=== PATIENT | female | born 1930 | race African-American/Black ===

== ENCOUNTER 2021-01-06 03:18 | Inpatient (IN) | payer OTHER ==
[~2021-01-06] VITALS: Ht 157.5 cm; Wt 49.4 kg
[2021-01-06] VITALS (7 sets, daily range): BP systolic 118–145; BP diastolic 63–98
--- NOTE | 2021-01-06 03:40 | NUR ---
ED Nurse Note: Pt brought in by son. Son reports pt has SOB and weakness. Pt lives home alone and son reports she is senile. Son is poor historian for this pt. Pt c/o shortness of breath.
[2021-01-06] MEDS ORDERED: Aspirin Baby 81mg ORAL ONE (03:45)
[2021-01-06] MEDS ORDERED: Omnipaque 350 100ml vial INJ PRN (03:45)
--- NOTE | 2021-01-06 03:48 | Emergency Room Report ---
History of Present Illness General Chief Complaint: Dyspnea/Respdistress Source: Patient, Family Member Present Illness HPI Patient is an 89-year-old female unknown past medical history who was brought in by her son for shortness of breath. Per son patient is "senile" and a poor his elvis. He states that she has been complaining of shortness of breath for 1 week and it got worse which prompted them to bring her to the emergency department. Patient is hard of hearing but states she has problems breathing. She denies any chest pain. She denies any fever or chills. She denies any cough. Patient son states that she was a former smoker. He does not know what medication she is on or what medical problems she has. Patient denies any abdominal pain nausea or vomiting. Allergies: Coded Allergies: No Known Allergies (Unverified , 01/06/21) COVID-19 Screening Contact w/high risk pt: No Experienced COVID-19 symptoms?: Yes COVID-19 Testing performed FRONT DESK REPRESENTATIVE: No Patient History Now: No Reviewed Nursing Documentation: PMH: Agreed; PSxH: Agreed Nursing Documentation-PMH Hx Hypertension: Yes Review of Systems All Other Systems: negative except mentioned in HPI Physical Exam Vital Signs Date Time Temp Pulse Resp B/P (MAP) Pulse Ox O2 Delivery O2 Flow Rate FiO2 01/06/21 03:27 99.0 132 30 173/102 (125) 92 Room Air Sp02 EP Interpretation: reviewed, normal General Appearance: alert, non-toxic, moderate distress Head: normocephalic, atraumatic Eyes: bilateral eye normal inspection, bilateral eye PERRL ENT: other - Hard of hearing Neck: full range of motion, no meningismus Respiratory: respiratory distress, accessory muscle use, rales Cardiovascular #1: tachycardia Gastrointestinal: non tender, soft, no guarding, no rebound Rectal: deferred Musculoskeletal: other - Bilateral 1+ edema no calf tenderness to palpation no erythema 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 Due to a high probability of clinically significant, life threatening deterioration, the patient required my highest level of preparedness to intervene emergently and I personally spent this critical care time directly and personally managing the patient. This critical care time included obtaining a history; examining the patient; pulse oximetry; ordering and review of studies; arranging urgent treatment with development of a management plan; evaluation of patient's response to treatment; frequent reassessment; and, discussions with other providers.This critical care time was performed to assess and manage the high probability of imminent, life- threatening deterioration that could result in multi-organ failure. It was exclusive of separately billable procedures and treating other patients and teaching time. Please see MDM section and the rest of the note for further information on patient assessment and treatment. Medical Decision Making Diagnostic Impression: Primary Impression: CHF (congestive heart failure) Additional Impressions: NSTEMI (non-ST elevated myocardial infarction) COPD exacerbation ER Course Patient presents with worsening shortness of breath over the past week. Patient has mixed picture of COPD and CHF exacerbation. Patient has increased pulmonary vasculature with possible right lower lobe infiltrate. Patient placed on BiPAP. Patient given 40 mg of IV Lasix. Patient also given inline Xopenex. Patient's heart rate is improving and respiratory rate is improved. Patient has elevated troponin with ST depressions. Patient has no active chest pain. Patient will be started on heparin. Patient's D-dimer is elevated. Concern for PE. Patient has already been started on heparin and CT angio has been ordered to rule out PE. Patient will be admitted for further treatment and evaluation. Laboratory Tests Test 01/06/21 03:33 01/06/21 03:39 01/06/21 04:24 White Blood Count 4.5 K/UL (4.8-10.8) L Red Blood Count 3.84 M/UL (4.20-5.40) L Hemoglobin 11.7 G/DL (12.0-16.0) L Hematocrit 36.8 % (37.0-47.0) L Mean Corpuscular Volume 96 FL (80-99) Mean Corpuscular Hemoglobin 30.4 PG (27.0-31.0) Mean Corpuscular Hemoglobin Concent 31.6 G/DL (32.0-36.0) L Red Cell Distribution Width 13.1 % (11.6-14.8) Platelet Count 185 K/UL (150-450) Mean Platelet Volume 6.6 FL (6.5-10.1) Neutrophils (%) (Auto) 39.6 % (45.0-75.0) L Lymphocytes (%) (Auto) 44.8 % (20.0-45.0) Monocytes (%) (Auto) 9.5 % (1.0-10.0) Eosinophils (%) (Auto) 4.7 % (0.0-3.0) H Basophils (%) (Auto) 1.4 % (0.0-2.0) Prothrombin Time 10.6 SEC (9.30-11.50) Prothrombin Time INR 1.0 (0.9-1.1) Activated Partial Thromboplast Time 21 SEC (23-33) L D-Dimer 6.06 mg/L FEU (0.00-0.49) H Sodium Level 135 MMOL/L (136-145) L Potassium Level 4.3 MMOL/L (3.5-5.1) Chloride Level 105 MMOL/L (98-107) Carbon Dioxide Level 27 MMOL/L (21-32) Anion Gap 3 mmol/L (5-15) L Blood Urea Nitrogen 25 mg/dL (7-18) H Creatinine 1.1 MG/DL (0.55-1.30) Estimated Glomerular Filtration Rate 56.6 mL/min (>60) Glucose Level 186 MG/DL (74-106) H Lactic Acid Level 2.10 mmol/L (0.4-2.0) H Calcium Level 9.1 MG/DL (8.5-10.1) Magnesium Level 2.3 MG/DL (1.8-2.4) Ferritin 370 NG/ML (8-388) Total Bilirubin 0.4 MG/DL (0.2-1.0) Aspartate Amino Transferase (AST) 128 U/L (15-37) H Alanine Aminotransferase (ALT) 122 U/L (12-78) H Alkaline Phosphatase 103 U/L (46-116) Lactate Dehydrogenase 334 U/L (81-234) H Total Creatine Kinase 253 U/L (26-308) Troponin I 0.937 ng/mL (0.000-0.056) C-Reactive Protein, Quantitative < 0.4 mg/dL (0.00-0.90) Pro-B-Type Natriuretic Peptide 5442 pg/mL (0-125) H Total Protein 7.2 G/DL (6.4-8.2) Albumin 3.7 G/DL (3.4-5.0) Globulin 3.5 g/dL Albumin/Globulin Ratio 1.1 (1.0-2.7) Arterial Blood pH 7.305 (7.350-7.450) Arterial Blood Partial Pressure CO2 45.7 mmHg (35.0-45.0) H Arterial Blood Partial Pressure O2 63.3 mmHg (75.0-100.0) L Arterial Blood HCO3 22.2 mmol/L (22.0-26.0) Arterial Blood Oxygen Saturation 90.7 % (95-100) L Arterial Blood Base Excess -4.1 (-2-2) L Mo Test Positive Urine Color Pale yellow Urine Appearance Clear Urine pH 6 (4.5-8.0) Urine Specific Rupert 1.010 (1.005-1.035) Urine Protein 2+ (NEGATIVE) H Urine Glucose (UA) Negative (NEGATIVE) Urine Ketones Negative (NEGATIVE) Urine Blood 1+ (NEGATIVE) H Urine Nitrite Negative (NEGATIVE) Urine Bilirubin Negative (NEGATIVE) Urine Urobilinogen Normal MG/DL (0.0-1.0) Urine Leukocyte Esterase Negative (NEGATIVE) Urine RBC 0-2 /HPF (0 - 2) Urine WBC 0 /HPF (0 - 2) Urine Squamous Epithelial Cells Few /LPF (NONE/OCC) Urine Bacteria None /HPF (NONE) EKG Diagnostic Results Troponin ordered: Yes When was troponin ordered?: Jan 06, 2021 EKG Time: 03:37 EP Interpretation: Bren Almendarez MD Rate: tachycardiac - 121 bpm Rhythm: other - Sinus tachycardia with left axis deviation, left bundle branch block ST Segments: other - ST depressions Rhythm Strip Diag. Results Rhythm Strip Time: 03:47 EP Interpretation: yes - Bren Almendarez MD Rate: 123 bpm Rhythm: no PVC's, no ectopy, other - Sinus tachycardia Chest X-Ray Diagnostic Results Chest X-Ray Diagnostic Results : Chest X-Ray Ordered: Yes # of Views/Limited/Complete: 1 View Indication: Shortness of Breath Interpretation: no pneumothorax, other - Pulmonary vascular congestion, bilateral pleural effusions, cardiomegaly Impression: Other - CHF exacerbation Electronically Signed by: Bren Almendarez MD Last Vital Signs Date Time Temp Pulse Resp B/P (MAP) Pulse Ox O2 Delivery O2 Flow Rate FiO2 2/9/21 03:27 99.0 132 30 173/102 (125) 92 Room Air Disposition: ADMITTED INPATIENT - SDU Condition: Critical Physician Consult: Dr. Bowers at 5am Referrals: NON PHYSICIAN (PCP) Additional Instructions: Please note that this report is being documented using [employer] technology. This can lead to erroneous entry secondary to incorrect interpretation by the dictating instrument. Bren Almendarez M.D. Jan 06, 2021 03:48
[2021-01-06 03:55] LABS: BASOPHILS % (AUTO) 1.4 % (0.0-2.0); EOSINOPHILS % (AUTO) 4.7 % (0.0-3.0); HEMATOCRIT 36.8 % (37.0-47.0); HEMOGLOBIN 11.7 G/DL (12.0-16.0); LYMPHOCYTES % (AUTO) 44.8 % (20.0-45.0); MEAN CORPUSCULAR VOLUME 96 FL (80-99); MONOCYTES % (AUTO) 9.5 % (1.0-10.0); NEUTROPHILS % (AUTO) 39.6 % (45.0-75.0); PLATELET COUNT 185 K/UL (150-450); RED BLOOD COUNT 3.84 M/UL (4.20-5.40); RED CELL DISTRIBUTION WIDTH 13.1 % (11.6-14.8); WHITE BLOOD COUNT 4.5 K/UL (4.8-10.8)
[2021-01-06] MEDS ORDERED: NS 275ml ONE (04:01)
[2021-01-06] MEDS ORDERED: Tubing IV Secondary IV ONE (04:01)
[2021-01-06 04:08] LABS: ANION GAP 3 mmol/L (5-15); BLOOD UREA NITROGEN 25 mg/dL (7-18); CALCIUM 9.1 MG/DL (8.5-10.1); CARBON DIOXIDE 27 MMOL/L (21-32); CHLORIDE 105 MMOL/L (98-107); CREATININE 1.1 MG/DL (0.55-1.30); POTASSIUM 4.3 MMOL/L (3.5-5.1); SODIUM 135 MMOL/L (136-145)
[2021-01-06 04:23] LABS: ALANINE AMINOTRANSFERASE 122 U/L (12-78); ALBUMIN 3.7 G/DL (3.4-5.0); ALBUMIN/GLOBULIN RATIO 1.1 (1.0-2.7); ALKALINE PHOSPHATASE 103 U/L (46-116); ASPARTATE AMINO TRANSFERASE 128 U/L (15-37); CREATINE KINASE 253 U/L (26-308); FERRITIN 370 NG/ML (8-388); LACTATE DEHYDROGENASE 334 U/L (81-234)
[2021-01-06] MEDS ORDERED: Heparin 25,000u/D5W 500ml 500 ML IV SCH ×2 (04:30→12:00)
[2021-01-06] MEDS ORDERED: Heparin 5000 units/ml inj IV SCH (04:30)
[2021-01-06 04:31] LABS: APPEARANCE,URINE CLEAR; BILIRUBIN, URINE NEGATIVE (NEGATIVE); COLOR,URINE PALE YELLOW; GLUCOSE, URINE (UA) NEGATIVE (NEGATIVE); KETONES,URINE NEGATIVE (NEGATIVE); LEUKOCYTE ESTERASE ,URINE NEGATIVE (NEGATIVE); NITRITE,URINE NEGATIVE (NEGATIVE); PH,URINE 6 (4.5-8.0); PROTEIN,URINE 2+ (NEGATIVE); UROBILINOGEN,URINE NORMAL MG/DL (0.0-1.0)
[2021-01-06 04:38] LABS: BILIRUBIN,TOTAL 0.4 MG/DL (0.2-1.0)
--- NOTE | 2021-01-06 04:38 | Diagnostic Imaging Report ---
EXAM: XR Chest, 1 View CLINICAL HISTORY: SOB TECHNIQUE: Frontal view of the chest. COMPARISON: No relevant prior studies available. FINDINGS/IMPRESSION: Emphysema with increased perihilar markings, concerning for moderate vascular congestion. Small effusions. Follow-up chest radiograph recommended. Cardiomegaly. Calcified aorta. No pneumothorax ever, the patient's chin obscures the lung apices.
[2021-01-06] MEDS ORDERED: LORazepam Inj 2mg/ml 1ml IV ONE (04:45)
[2021-01-06] MEDS ORDERED: Levalbuterol Inh UD 1.25mg/0.5ml HHN ONE (04:45)
[2021-01-06] MEDS ORDERED: Azithromycin 500 MG in NS 275 ML IV ONE (04:45)
[2021-01-06] MEDS ORDERED: Omnipaque-300 100ml vial INJ ONE (04:45)
[2021-01-06] MEDS ORDERED: Cefepime HCl 2 GM in D5W 55 ML IVPB ONE (04:45)
[2021-01-06] MEDS ORDERED: dexAMETHasone 10mg/ml Inj IV ONE (05:00)
--- NOTE | 2021-01-06 05:28 | NUR ---
ED Nurse Note: Pt was very restless and kept repeating that she couldn't breathe right. Pt got ativan and is now resting. A 2nd line has been place and dickson anchored. Pt was cleaned up and monitor reapplied. Pt is currently on bipap with stable vitals. Bed in lowest position, rails up x2, call light in reach.
--- NOTE | 2021-01-06 05:36 | NUR ---
ED Nurse Note: Attempted to call report. Advised to call back in 5 minutes. Pt's son left number. Sawyer: [phone]. Addendum: 01/06/21 at 0615 by KARLY Sawyer's phone number is [phone]. Previous number is wrong.
--- NOTE | 2021-01-06 06:05 | NUR ---
TRANSFER TO FLOOR: Patient transferred to [facility] as ordered, per Dr. Almendarez. Report given to MISSY Keith. Belongings sent with pt. Family informed of transfer.
--- NOTE | 2021-01-06 06:19 | NUR ---
CASE MANAGEMENT:REVIEW 89YR OLD FEMALE WALKED INTO ER WITH SON CC: SOB SI: NSTEMI. COPD. CHF 98.9 132 30 173/102 92% ON RA BUN+25 LACTIC ACID+2.10 AST/ALT+128/122 TROPONIN(+) 0.937 BNP+5442 IS: PLACED ON 2L/NC 500CC NS BOLUS IV LASIX X2 ASA PO HEPARIN GTT IV AZITHROMYCIN IV CEFEPIME IV DECADRON CTA CHEST CXR BLOOD CX NOVEL COVID : TO TELEMETRY DCP: FROM HOME
--- NOTE | 2021-01-06 06:19 | NUR ---
ED Nurse Note: Attempted to call Edward, left a message. Waiting for RT to take pt to floor.
--- NOTE | 2021-01-06 07:02 | NUR ---
ED Nurse Note: RT busy with emergency on the floor, unavailable to help with pt transport. Pt is resting and appears to be in no distress. Bed in lowest position, rails up x2, no new needs identified.
--- NOTE | 2021-01-06 07:05 | NUR ---
NURSE NOTES: Pt is still at the Er, report forwarded and given to Alejo.
--- NOTE | 2021-01-06 07:19 | NUR ---
NURSE NOTES: Report received from MISSY Keith. Patient came to the floor. On BiPap 10/02, 60%, tolerating well. Patient is on bed, no signs of grimacing or distress noted. Will follow up with primary provider and will ask for consults. Patient is on dickson catheter, patent, intact, draining light yellow urine. HOB elevated, bed is on lowest position, side rails up, locked. Will continue to monitor. Will continue plan of care.
[2021-01-06] MEDS ORDERED: cefTRIAXone 1 GM in D5W 55 ML IVPB SCH (08:30)
[2021-01-06] MEDS ORDERED: dexAMETHasone 10mg/ml Inj IV SCH (09:00)
[2021-01-06] MEDS ORDERED: Azithromycin 500 MG in D5W 275 ML IV SCH (09:00)
[2021-01-06] MEDS: cefTRIAXone 1 GM in D5W 55 ML IVPB SCH (10:16)
--- NOTE | 2021-01-06 11:45 | Consultation ---
Consult Note Consult Note DATE OF CONSULTATION: 01/06/2021 CONSULTING PHYSICIAN: Kin Miner MD. ATTENDING PHYSICIAN: Dr. Bowers REASON FOR CONSULTATION: Shortness of breath HISTORY OF PRESENT ILLNESS: This is an 89-year-old female with unknown past medical history who was brought in by son for progressively worsening shortness of breath x1 week. She denies any chest pain, fever, chills, or cough. She is a poor historian and any further history is unable to be obtained. Her chest x-ray revealed increased pulmonary vascular with possible right lower lobe infiltrate, small bilateral pleural effusions, and cardiomegaly. Patient was placed on BiPAP in the ER and was given level butyryl and Lasix. Patient had elevated troponin with ST depressions. Patient was started on heparin due to concern for pulmonary embolus. Patient was seen in SDU. PAST MEDICAL HISTORY: Unknown MEDICATIONS: Full list of home medication not available at this time ALLERGIES: No known allergies FAMILY HISTORY: Unknown PERSONAL/SOCIAL HISTORY: Ex-smoker REVIEW OF SYSTEMS: Negative except mentioned in HPI PHYSICAL EXAMINATION: VITAL SIGNS: Blood pressure 145/93, heart rate 60, respiratory rate 23, weight 49 kg, height 157 cm General: Moderate respiratory distress on BiPAP HEENT: Head exam reveals that the head is normocephalic, atraumatic without deformity or unusual swelling. Pupils are PERRLA. CHEST AND LUNGS: Accessory muscle use, Rales noted CARDIOVASCULAR: Reveals normal S1, S2 without murmurs, rubs, or clicks. ABDOMEN: Soft with no tenderness or organomegaly. RECTAL: Deferred. MUSCULOSKELETAL: Bilateral lower extremity 1+ edema, no calf tenderness to palpation, or erythema NEUROLOGICAL: Alert and oriented x3 , nonfocal LABORATORY DATA: Laboratory testing shows WBC 4.5, hemoglobin 11.7, hematocrit 36.8. Chemistries show sodium 135, BUN 25, creatinine 1.1, glucose 186, lactic acid 2.1, AST 128, ALT 122, LDH 334, troponin 0.937, BNP 5442 Assessment/Plan 1. Hypoxemic respiratory distress -Continue current BiPAP setting - Agree with dexamethasone - Recheck ABG 2. COVID-19 PUI -COVID-19 swab sent - isolation precaution until COVID-19 test result available 3. Pneumonia -On broad-spectrum antibiotics per primary MD 4. Elevated BNP - s/p Lasix in the ER 5. Elevated D-dimer with tachycardia - On heparin drip for DVT prophylaxis -We will order venous duplex of legs The care for this patient was discussed with my supervising physician. Time spent for this case was approximately 31 minutes. Moo Emmanuel Jan 06, 2021 11:45
--- NOTE | 2021-01-06 12:43 | NUR ---
NURSE NOTES: PTT resulted back and it is within range. Pharmacy called and said cancel 1800 PTT and just order PTT tomorrow (01/07) at 0400.
--- NOTE | 2021-01-06 13:45 | NUR ---
NURSE NOTES: patient put on restraints because she is pulling bipap off and trying to get out of bed.
--- NOTE | 2021-01-06 14:29 | Consultation ---
DATE OF CONSULTATION: 01/06/2021 INFECTIOUS DISEASES CONSULTATION CONSULTING PHYSICIAN: Emmie Dickson MD REFERRING PHYSICIAN: Vinod Bowers MD REASON FOR CONSULTATION: To rule out COVID-19 pneumonia. HISTORY OF PRESENT ILLNESS: This is a 89-year-old lady with unknown past medical history who comes in with worsening shortness of breath. She has been placed on a BiPAP. An Infectious Diseases consultation has been obtained for antibiotics. PAST MEDICAL HISTORY: Unknown. SOCIAL HISTORY: Unknown. FAMILY HISTORY: Unknown. REVIEW OF SYSTEMS: Unable to obtain currently. MEDICATIONS: As an inpatient, she is on ceftriaxone, dexamethasone, azithromycin. ALLERGIES: No known drug allergies. PHYSICAL EXAMINATION: VITAL SIGNS: Temperature 97.3, T-max of 99, pulse of 93, respiratory rate 26, blood pressure 141/73, O2 saturation of 100% on 60% FiO2 on a BiPAP. Examination deferred due to COVID-19. LABORATORY AND DIAGNOSTIC DATA: White count 4.5, hemoglobin 11.7, hematocrit 36.8, MCV 96, platelet count of 185. Sodium 135, potassium 4.3, chloride 105, bicarb 27, BUN 25, creatinine 1.1, glucose 186, calcium 9.1, ferritin 370. Total bilirubin 0.4, AST 128, ALT 122, alkaline phosphatase 103. LDH 334. CK 253. Troponin 0.9. C-reactive protein less than 0.4. Beta natriuretic peptide 5442. Total protein 7.2, albumin 3.7. UA showing zero white cells. Nasal swab was negative for influenza A and B. Chest x-ray is showing emphysema with increased perihilar markings concerning for moderate vascular congestion, small effusions noted. ASSESSMENT: This is a 89-year-old lady with unknown past medical history who comes in with shortness of breath and is found to have. 1. Pneumonia, COVID-19 test is pending. 2. Respiratory failure. PLAN: 1. Continue ceftriaxone and azithromycin for now. 2. Continue dexamethasone day #1. 3. We will give one dose of ivermectin. 4. We will order COVID-19 results. 5. We will follow up patient clinically. 6. Continue isolation. I would like to thank, Dr. Bowers, for this consultation. Emmie Dickson M.D. DR: Walter JOB#: [id number] CC: Stephane Bowers M.D.; Fax#: [phone]
--- NOTE | 2021-01-06 14:44 | NUR ---
NURSE NOTES: Patient went on Vtach (166 HR). Did a 10 lead EKG and it is ST with [address] Hankins. Ordered stat Mg level per Dr. Hankins. Will continue to follow up.
--- NOTE | 2021-01-06 15:06 | NUR ---
RESPIRATORY NOTE: Removed BIPAP and placed pt on 2L NC. Pt tolerating well. Spo2 98-99%. RN bedside. Will continue to closely monitor and follow plan of care.
--- NOTE | 2021-01-06 15:12 | NUR ---
NURSE NOTES: Patient is off the BiPap now. Currently on NC at 2L saturation at 100%. Will let primary doctor know.
--- NOTE | 2021-01-06 16:11 | Diagnostic Imaging Report ---
. Indication: Reason For Exam: DVT Technique: Grayscale and duplex images of the bilateral lower extremity veins Comparison: None Findings: Bilaterally, grayscale and duplex images demonstrate no evidence of intraluminal thrombus. Normal phasic Doppler waveforms, demonstrating normal augmentation response and no evidence of valvular insufficiency. Greater saphenous vein(s) and tibial veins are patent. Normal compressibility. Impression: Negative for evidence of lower extremity deep venous thrombosis bilaterally
--- NOTE | 2021-01-06 16:15 | Cardiology Report ---
APPROVED REPORT EKG Measurement Heart [id number] <Conclusion> Sinus tachycardia Possible Left atrial enlargement Left axis deviation Right bundle branch block Abnormal ECG
--- NOTE | 2021-01-06 18:14 | History and Physical Report ---
DATE OF ADMISSION: 01/06/2021 HISTORY OF PRESENT ILLNESS: This is an elderly 89-year-old female who came to the emergency room for short of breath, hypoxia. The patient is on BiPAP and is still critically sick. Opens her eyes. The patient is in bed. PAST MEDICAL HISTORY: Significant for COPD, CHF, hypertension. MEDICATIONS: She does not remember. ALLERGIES: NKA. FAMILY HISTORY: Not contributory. REVIEW OF SYSTEMS: Cannot be obtained. PHYSICAL EXAMINATION: GENERAL: This is an elderly female, currently in bed, nonverbal, on BiPAP. VITAL SIGNS: Blood pressure 145/93, pulse 60, respirations 23, pulse ox is 99%, temperature 97.9. HEENT: AT/NC. EOMI. RICARDO. Eyes are open. NECK: Supple. CHEST: Bilaterally scattered wheezing and crackles. CARDIOVASCULAR: Regular rhythm. ABDOMEN: Soft. Positive bowel sounds, nontender. EXTREMITIES: CCE. NEUROLOGIC: The patient is nonverbal and on BiPAP, generalized weakness. LABORATORY DATA: White count is 4.5, hemoglobin 12, hematocrit 36, platelets are 185. Chemistry panel, sodium 145, potassium 4.3, BUN 25, creatinine 1.1, glucose 186. Lactic acid is 2.10. Troponin 0.937. BNP was 5542 and CK of 253. LDH 334. Her imaging x-ray, no pneumothorax. ASSESSMENT AND PLAN: 1. Acute hypoxia. 2. COPD exacerbation. 3. Rule out COVID. 4. CHF. We will admit her. The patient is on ORI. Continue BiPAP. The patient is on continued Decadron, Zithromax, ceftriaxone. Continue heparin drip. Cardiology on consult, Dr. Hankins. We will keep her NPO meanwhile because of the BiPAP. I left a message to Dr. Hankins for cardiology consult. Stephane Bowers M.D. DR: JANAY JOB#: [id number] CC:
--- NOTE | 2021-01-06 19:25 | NUR ---
NURSE NOTES: pt report received from Natalia RN. pt is alert and oriented times 2, able to follow simple commands. no abnormalities noted to neuro assessment. pt is on quality assurance monitor chassis showing NSR, no change in cardiac rhythm, no abnormalities noted. it is on 2L NC, sating 97% O2, no acute distress to resp assessment. pt bed is low, locked, armed, bed rails up times 3, call light within reach. will follow plan of care.
--- NOTE | 2021-01-06 20:00 | NUR ---
NURSE HAND-OFF REPORT: Important Events on Shift: stable Patient Status: Diet: Pending Orders: Pending Results/Labs: Pending MD notification: Latest Vital Signs: Temperature 97.9 , Pulse 98 , B/P 141 /98 , Respiratory Rate 24 , O2 SAT 96 , Bi-pap, O2 Flow Rate 2.0 . Vital Sign Comment: EKG Rhythm: SR with BBB Rhythm change?: N MD Notified?: -Dr. Cr GUZMAN Response: Latest Joiner Fall Score: 45 Fall Risk: High Risk Safety Measures: Call light Within Reach, Bed Alarm Zone 2, Side Rails Side Rails x2, Bed position Low and Locked. Fall Precautions: Yellow Socks Yellow Gown Door Sign Patient Fall Education Report given to MISSY Tucker.
[2021-01-07] VITALS: BP 144/81
[2021-01-07 04:00] VITALS: BP 142/89
[2021-01-07] MEDS ORDERED: Heparin 5000 units/ml inj IV SCH (04:45)
[2021-01-07] MEDS ORDERED: Heparin 25,000u/D5W 500ml 500 ML IV SCH (04:45)
--- NOTE | 2021-01-07 07:20 | NUR ---
NURSE NOTES: Report received from MISSY Tucker. Patient is on bed, confused and has pulled her L IV site. On 2 L nasal cannula, saturating high 90s. On a regular mechanical soft diet. has a dickson catheter F 16, inserted on 01/06, patent, intact, and draining light dalila urine. Has a R FA 18 g IV site, patent, intact, and running Heparin at 16 U/kg/hr. HOB elevated, bed on lowest position, side rails up, locked, call light within reach. Will continue to monitor. Will continue plan of care.
--- NOTE | 2021-01-07 07:40 | NUR ---
NURSE HAND-OFF REPORT: Important Events on Shift:[NA] Patient Status: [unchanged] Diet: [as per doctor order] Pending Orders: [na] Pending Results/Labs:[na] Pending MD notification:[na] Latest Vital Signs: Temperature 98.5 , Pulse 96 , B/P 142 /89 , Respiratory Rate 22 , O2 SAT 99 , Bi-pap, O2 Flow Rate 2.0 . Vital Sign Comment: [stable] EKG Rhythm: SR with BBB, PVC Rhythm change?: N MD Notified?: -Dr. Cr GUZMAN Response: Latest Joiner Fall Score: 45 Fall Risk: High Risk Safety Measures: Call light Within Reach, Bed Alarm Zone 3, Side Rails Side Rails x3, Bed position Low and Locked. Fall Precautions: Yellow Socks Yellow Gown Door Sign Patient Fall Education Report given to [Jc LOUIS].
[2021-01-07] MEDS ORDERED: Azithromycin 500 MG in NS 275 ML IV SCH (09:00)
--- NOTE | 2021-01-07 09:01 | NUR ---
CASE MANAGEMENT:REVIEW 01/07/21 SI: NSTEMI. COPD. CHF. PUI 98.5 93 22 142/89 99% ON BIPAP APTT+36 IS: HEPARIN GTT IV DECADRON QD IV AZITHROMYCIN QD IV ROCEPHIN Q24 IVF@75/HR : STEP DOWN UNIT DCP: FROM HOME
[2021-01-07] MEDS: LORazepam Inj 2mg/ml 1ml IV PRN (09:54)
--- NOTE | 2021-01-07 09:54 | NUR ---
NURSE NOTES: Ativan 0.5 mg IV administered. Patient is agitated. will continue to be monitored.
[2021-01-07] MEDS: cefTRIAXone 1 GM in D5W 55 ML IVPB SCH (10:11)
--- NOTE | 2021-01-07 10:12 | NUR ---
NURSE NOTES: patient is supposed to have CT today with contrast, but patient is verbally aggressive and combative. will be needing consent for the procedure. procedure will most likely be done tomorrow. will endorse to upcoming nurse.
--- NOTE | 2021-01-07 10:46 | Infectious Diseases Prog Note ---
Assessment/Plan Assessment/Plan antibiotics : ceftraixone, azithromycin A 1. pneumonia improving 2. increased LFT 3. anemia P 1. continue ceftriaxone 2. d/c azithromycin 3. s/p 1 dose ivermectin 4. continue dexamethasone day 2 5. continue isolation Subjective ROS Limited/Unobtainable: Yes Allergies: Coded Allergies: No Known Allergies (Unverified , 01/06/21) Objective Last 24 Hour Vital Signs Date Time Temp Pulse Resp B/P (MAP) Pulse Ox O2 Delivery O2 Flow Rate FiO2 01/07/21 08:00 Bi-pap 01/07/21 08:00 2.0 01/07/21 07:32 122 01/07/21 07:10 98 Nasal Cannula 2.0 28 01/07/21 04:00 Bi-pap 01/07/21 04:00 96 01/07/21 04:00 96 01/07/21 04:00 98.5 93 22 142/89 (106) 99 01/07/21 04:00 Bi-pap 01/07/21 04:00 2.0 01/07/21 00:00 2.0 01/07/21 00:00 98.8 96 24 144/81 (102) 99 01/07/21 00:00 Bi-pap 01/07/21 00:00 Bi-pap 01/07/21 00:00 90 01/07/21 00:00 90 01/06/21 20:00 94 01/06/21 20:00 2.0 01/06/21 20:00 Bi-pap 01/06/21 20:00 98.0 95 24 140/77 (98) 100 01/06/21 20:00 94 01/06/21 20:00 Bi-pap 01/06/21 19:20 96 Nasal Cannula 2.0 28 01/06/21 16:49 Bi-pap 01/06/21 16:00 98 01/06/21 16:00 97.9 99 24 141/98 (112) 100 01/06/21 16:00 Bi-pap 01/06/21 16:00 15.0 01/06/21 15:52 98 01/06/21 15:05 99 Nasal Cannula 2.0 28 01/06/21 13:44 100 25 01/06/21 12:39 93 01/06/21 12:00 Bi-pap 01/06/21 12:00 97.3 94 26 141/73 (95) 100 01/06/21 12:00 Bi-pap 01/06/21 12:00 60 01/06/21 11:56 97.3 94 26 141/73 (95) 100 01/06/21 11:42 93 01/06/21 11:36 64 22 98 Bi-Pap 60 01/06/21 11:33 62 20 98 60 Height (Feet): 5 Height (Inches): 2.00 Weight (Pounds): 109 Microbiology Date/Time Source Procedure Growth Status 01/06/21 06:13 Nasal Nares - Final Complete 01/06/21 06:13 Nasal Nares - Final Complete Laboratory Tests Test 01/06/21 11:00 01/06/21 16:00 01/07/21 03:50 Activated Partial Thromboplast Time 76 SEC (23-33) H 36 SEC (23-33) H Magnesium Level 2.3 MG/DL (1.8-2.4) Current Medications Medications (Trade) Dose Ordered Sig/Lexi Route PRN Reason Start Time Stop Time Status Last Admin Dose Admin Acetaminophen (Tylenol) 650 mg Q6H PRN ORAL Mild Pain (Pain Scale 1-3) 01/06/21 16:15 02/05/21 16:14 01/06/21 16:46 Azithromycin 500 mg/Sodium Chloride 275 ml @ 275 mls/hr DAILY IV 01/07/21 09:00 01/13/21 09:59 01/07/21 10:10 Ceftriaxone Sodium 1 gm/ Dextrose 55 ml @ 110 mls/hr Q24H IVPB 01/06/21 10:00 01/13/21 09:59 01/07/21 10:11 Dexamethasone Sodium Phosphate (Decadron 4mg/ml vial) 6 mg DAILY IVP 01/07/21 09:00 01/15/21 09:01 01/07/21 10:10 Heparin Sodium/ Dextrose 500 ml @ 15.821 mls/ hr ADJUST PER PROTOCOL IV 01/07/21 04:45 02/06/21 04:44 01/07/21 05:34 Lorazepam (Ativan 2mg/ml 1ml) 0.5 mg Q6H PRN IV For Anxiety 01/07/21 09:30 01/14/21 09:29 Sodium Chloride 1,000 ml @ 75 mls/hr [id number] IV 01/06/21 09:30 02/05/21 09:29 01/06/21 23:50 Emmie Dickson MD Jan 07, 2021 10:46
--- NOTE | 2021-01-07 10:46 | NUR ---
NURSE NOTES: re-inserted a new IV site for the patient (R H 24 g), patent, intact, and asymptomatic. Patient pulled old IV site. Patient is still on soft bilateral restaints.
--- NOTE | 2021-01-07 11:29 | General Progress Note ---
Subjective Constitutional: Reports: weakness HEENT: Reports: no symptoms Cardiovascular: Reports: chest pain Respiratory: Reports: SOB with excertion Gastrointestinal/Abdominal: Reports: no symptoms Genitourinary: Reports: no symptoms Neurologic/Psychiatric: Reports: no symptoms Allergies: Coded Allergies: No Known Allergies (Unverified , 01/06/21) Objective Last 24 Hour Vital Signs Date Time Temp Pulse Resp B/P (MAP) Pulse Ox O2 Delivery O2 Flow Rate FiO2 01/07/21 08:00 Bi-pap 01/07/21 08:00 2.0 01/07/21 07:32 122 01/07/21 07:10 98 Nasal Cannula 2.0 28 01/07/21 04:00 Bi-pap 01/07/21 04:00 96 01/07/21 04:00 96 01/07/21 04:00 98.5 93 22 142/89 (106) 99 01/07/21 04:00 Bi-pap 01/07/21 04:00 2.0 01/07/21 00:00 2.0 01/07/21 00:00 98.8 96 24 144/81 (102) 99 01/07/21 00:00 Bi-pap 01/07/21 00:00 Bi-pap 01/07/21 00:00 90 01/07/21 00:00 90 01/06/21 20:00 94 01/06/21 20:00 2.0 01/06/21 20:00 Bi-pap 01/06/21 20:00 98.0 95 24 140/77 (98) 100 01/06/21 20:00 94 01/06/21 20:00 Bi-pap 01/06/21 19:20 96 Nasal Cannula 2.0 28 01/06/21 16:49 Bi-pap 01/06/21 16:00 98 01/06/21 16:00 97.9 99 24 141/98 (112) 100 01/06/21 16:00 Bi-pap 01/06/21 16:00 15.0 01/06/21 15:52 98 01/06/21 15:05 99 Nasal Cannula 2.0 28 01/06/21 13:44 100 25 01/06/21 12:39 93 01/06/21 12:00 Bi-pap 01/06/21 12:00 97.3 94 26 141/73 (95) 100 01/06/21 12:00 Bi-pap 01/06/21 12:00 60 01/06/21 11:56 97.3 94 26 141/73 (95) 100 01/06/21 11:42 93 01/06/21 11:36 64 22 98 Bi-Pap 60 01/06/21 11:33 62 20 98 60 Intake and Output 01/06/21 01/07/21 19:00 07:00 Intake Total 88.58 ml 1065.201 ml Output Total 1500 ml 500 ml Balance -1411.42 ml 565.201 ml Intake IV Total 88.58 ml 1065.201 ml Output Urine Total 1500 ml 500 ml Laboratory Tests 01/06/21 16:00: Magnesium Level 2.3 01/07/21 03:50: Activated Partial Thromboplast Time 36H Height (Feet): 5 Height (Inches): 2.00 Weight (Pounds): 109 General Appearance: alert EENT: PERRL/EOMI Neck: supple Cardiovascular: tachycardia Respiratory/Chest: crackles/rales Abdomen: non tender, soft Extremities: non-tender Assessment/Plan Status: stable Assessment/Plan: covid pna ac copd exacerabation chf htn agitation cont iv abx iv decadrone add ativan fu labs dw son transfer to Vinod Jung MD Jan 07, 2021 11:29
--- NOTE | 2021-01-07 12:11 | NUR ---
INSURANCE CLINICALS/REVIEW FAXED TO [facility]#[phone] fax#[phone]
--- NOTE | 2021-01-07 12:30 | NUR ---
NURSE NOTES: unable to obtain vital signs for morning and noon because patient does not hold still and very resistive to care. will attempt vital signs for this afternoon.
--- NOTE | 2021-01-07 12:44 | Progress Note ---
DATE: 01/07/2021 SUBJECTIVE: This is an elderly female, more awake and slightly anxious, she chair, looking better. OBJECTIVE: VITAL SIGNS: Oxygen, she is on 2 liter of oxygen saturating 96%, heart rate is 93 to 122, temperature 98.5, blood pressure 142/89. HEENT: NAD. CHEST: Bilateral few scattered crackles. CARDIOVASCULAR: Regular rhythm. No gallop. No murmur. ABDOMEN: Soft. Positive bowel sounds. EXTREMITIES: CCE. NEUROLOGIC: No focal deficit. LABORATORY DATA: White count is 4.5, hemoglobin 12, hematocrit 36, platelets are 185. Lactic acid is 2.10. Troponin 0.936. BNP of 5442. ASSESSMENT AND PLAN: 1. COVID pneumonia. 2. Sepsis. 3. Hypertension. 4. Dementia. We will add the Ativan. Continue Decadron, Zithromax. We will continue heparin. Continue ceftriaxone and monitor dosing. Stephane Bowers M.D. DR: JANAY JOB#: [id number] CC:
--- NOTE | 2021-01-07 13:12 | NUR ---
NURSE NOTES: Pharmacy called and PTT resulted back. Will decrease heparin drip from 16 units to 14 U/kg/hr. Ordered PTT for 1900 today.
--- NOTE | 2021-01-07 13:22 | Pulmonology Progress Note ---
Subjective ROS Limited/Unobtainable: Yes Interval Events: None major reported per nursing Constitutional: Reports: no symptoms HEENT: Repors: no symptoms Respiratory: Reports: shortness of breath Cardiovascular: Reports: no symptoms Gastrointestinal/Abdominal: Reports: no symptoms Genitourinary: Reports: no symptoms Allergies: Coded Allergies: No Known Allergies (Unverified , 01/06/21) Objective Last 24 Hour Vital Signs Date Time Temp Pulse Resp B/P (MAP) Pulse Ox O2 Delivery O2 Flow Rate FiO2 01/07/21 08:00 Bi-pap 01/07/21 08:00 2.0 01/07/21 07:32 122 01/07/21 07:10 98 Nasal Cannula 2.0 28 01/07/21 04:00 Bi-pap 01/07/21 04:00 96 01/07/21 04:00 96 01/07/21 04:00 98.5 93 22 142/89 (106) 99 01/07/21 04:00 Bi-pap 01/07/21 04:00 2.0 01/07/21 00:00 2.0 01/07/21 00:00 98.8 96 24 144/81 (102) 99 01/07/21 00:00 Bi-pap 01/07/21 00:00 Bi-pap 01/07/21 00:00 90 01/07/21 00:00 90 01/06/21 20:00 94 01/06/21 20:00 2.0 01/06/21 20:00 Bi-pap 01/06/21 20:00 98.0 95 24 140/77 (98) 100 01/06/21 20:00 94 01/06/21 20:00 Bi-pap 01/06/21 19:20 96 Nasal Cannula 2.0 28 01/06/21 16:49 Bi-pap 01/06/21 16:00 98 01/06/21 16:00 97.9 99 24 141/98 (112) 100 01/06/21 16:00 Bi-pap 01/06/21 16:00 15.0 01/06/21 15:52 98 01/06/21 15:05 99 Nasal Cannula 2.0 28 01/06/21 13:44 100 25 Intake and Output 01/06/21 01/07/21 19:00 07:00 Intake Total 88.58 ml 1065.201 ml Output Total 1500 ml 500 ml Balance -1411.42 ml 565.201 ml Intake IV Total 88.58 ml 1065.201 ml Output Urine Total 1500 ml 500 ml General Appearance: no acute distress HEENT: atraumatic Respiratory: crackles/rales Cardiovascular: regular rhythm, tachycardia Abdomen: soft, non tender Microbiology Date/Time Source Procedure Growth Status 01/06/21 06:13 Nasal Nares - Final Complete 01/06/21 06:13 Nasal Nares - Final Complete Laboratory Tests 01/06/21 16:00: Magnesium Level 2.3 01/07/21 03:50: Activated Partial Thromboplast Time 36H 01/07/21 12:00: Activated Partial Thromboplast Time 105H Current Medications Medications (Trade) Dose Ordered Sig/Lexi Route PRN Reason Start Time Stop Time Status Last Admin Dose Admin Acetaminophen (Tylenol) 650 mg Q6H PRN ORAL Mild Pain (Pain Scale 1-3) 01/06/21 16:15 02/05/21 16:14 01/06/21 16:46 Ceftriaxone Sodium 1 gm/ Dextrose 55 ml @ 110 mls/hr Q24H IVPB 01/06/21 10:00 01/13/21 09:59 01/07/21 10:11 Dexamethasone Sodium Phosphate (Decadron 4mg/ml vial) 6 mg DAILY IVP 01/07/21 09:00 01/15/21 09:01 01/07/21 10:10 Heparin Sodium/ Dextrose 500 ml @ 13.844 mls/ hr ADJUST PER PROTOCOL IV 01/07/21 13:15 02/06/21 13:14 Lorazepam (Ativan 2mg/ml 1ml) 0.5 mg Q6H PRN IV For Anxiety 01/07/21 09:30 01/14/21 09:29 Sodium Chloride 1,000 ml @ 75 mls/hr [id number] IV 01/06/21 09:30 02/05/21 09:29 01/07/21 12:29 Assessment/Plan Assessment/Plan 1. Hypoxemic respiratory distress; improving -now off BiPAP; saturating well on 2 L NC; wean as tolerated - Continue dexamethasone 2. COVID-19 PUI -COVID-19 swab sent - isolation precaution until COVID-19 test result available 3. Pneumonia -On broad-spectrum antibiotics per primary MD 4. Elevated BNP - s/p Lasix in the ER 5. Elevated D-dimer with tachycardia - On heparin drip for DVT prophylaxis -Venous duplex of legs negative for DVT The care for this patient was discussed with my supervising physician. Time spent for this case was approximately 31 minutes. Moo Emmanuel Jan 07, 2021 13:22
[2021-01-07 14:54] VITALS: BP 154/77
[2021-01-07] MEDS: Heparin 25,000u/D5W 500ml 500 ML IV SCH (15:08)
[2021-01-07 16:00] VITALS: BP 157/88
--- NOTE | 2021-01-07 16:10 | NUR ---
NURSE NOTES: patient pulled IV site despite being on restraint. put a new IV site on the L FA 22 g. patient will continue to be monitored.
--- NOTE | 2021-01-07 19:10 | NUR ---
NURSE HAND-OFF REPORT: Important Events on Shift: pulled IV sites. put in new ones Patient Status: Diet: Pending Orders: Pending Results/Labs: Pending MD notification: Latest Vital Signs: Temperature 97.3 , Pulse 112 , B/P 157 /88 , Respiratory Rate 24 , O2 SAT 98 , Bi-pap, O2 Flow Rate 2.0 . Vital Sign Comment: EKG Rhythm: Sinus Tachycardia Rhythm change?: N MD Notified?: -Dr. Cr GUZMAN Response: Latest Joiner Fall Score: 45 Fall Risk: High Risk Safety Measures: Call light Within Reach, Bed Alarm Zone 3, Side Rails Side Rails x3, Bed position Low and Locked. Fall Precautions: Yellow Socks Yellow Gown Door Sign Patient Fall Education Report given to MISSY Perez.
--- NOTE | 2021-01-07 19:11 | NUR ---
NURSE NOTES: Received report from MISSY Mcdowell. Upon assessment pt is awake in bed, appears disheveled, unkempt. A/Ox1. Not oriented to place, purpose, time. Saturating 98% on 2L room air. 5-lead EKG shows SR at 91 BPM. Right IV observed running both D51/2 NS and Heparin drip; moved Heparin line to left AC IV. Wu draining well to gravity. Bilateral soft wrist restraints observed for attempting to remove medical devices. Bed kept in lowest and locked position. Side rails up x3. Call light within reach. Bed alarm on. Will monitor.
[2021-01-07 20:00] VITALS: BP 142/86
--- NOTE | 2021-01-07 21:00 | NUR ---
NURSE NOTES: Left message for Dr. Bowers to clarify if he wants to continues CT w/ Contrast, per Quinten Almendarez orders. Awaiting call back. Called son LAYNE but no answer. Mailbox full - will reattempt later.
--- NOTE | 2021-01-07 23:37 | NUR ---
NURSE NOTES: No cardiopulmonary distress noted. Pt confused and attempting to get out of bed. Repositioned, offered fluids, and safety measures initiated.
[2021-01-08] VITALS: BP 148/99
[2021-01-08] MEDS: Heparin 25,000u/D5W 500ml 500 ML IV SCH (00:52)
[2021-01-08] MEDS: LORazepam Inj 2mg/ml 1ml IV PRN (00:53)
--- NOTE | 2021-01-08 03:00 | NUR ---
NURSE NOTES: Pt attempting to get out of bed despite all needs met. Will administer PRN ativan.
[2021-01-08 04:00] VITALS: BP 122/66
--- NOTE | 2021-01-08 06:31 | NUR ---
NURSE NOTES: Pt appears to be sleeping. No cardiopulmonary distress noted. COVID swab negative. Left message for Dr. Dickson in regards to D/C isolation. Will monitor.
--- NOTE | 2021-01-08 06:49 | NUR ---
NURSE HAND-OFF REPORT: Important Events on Shift: PENDING CT CONTRAST CONSENT (UNABLE TO REACH SON); PENDING TELE TRANSFER ORDER Patient Status: Stable Diet: Mech Soft Pending Orders: Y Pending Results/Labs: Y Pending notification: Eloy Rahel L[place]ad Latest Vital Signs: Temperature 97.0 , Pulse 78 , B/P 122 /66 , Respiratory Rate 22 , O2 SAT 100 , Bi-pap, O2 Flow Rate 2.0 . Vital Sign Comment: WNL EKG Rhythm: Sinus Rhythm Rhythm change?: N MD Notified?: -Dr. Cr GUZMAN Response: Latest Joiner Fall Score: 45 Fall Risk: High Risk Safety Measures: Call light Within Reach, Bed Alarm Zone 1, Side Rails Side Rails x3, Bed position Low and Locked. Fall Precautions: Yellow Socks Yellow Gown Door Sign Patient Fall Education Report given to MISSY Troy.
--- NOTE | 2021-01-08 07:10 | NUR ---
Received report from MISSY Perez. Pt is lying in bed asleep. Not in acute distress. Sinus Rhythm on the cardiac. Tolerating 2L nasal cannula. Peripheral IV on L AC 22 G is intact and patent running the heparin drip. IV on R wrist 22 G is intact and patent running 0.45% NS @ 75cc/hr. On Mechanical soft diet. Bilateral soft wrist restraints assessed. No skin issues around restraints. Recent labs, medication and MD orders reviewed. Bed is locked and in lowest position, bed alarm on, call light is with the pt. Will continue to monitor the pt. Will continue with the plan of care.
[2021-01-08 08:00] VITALS: BP 124/88
[2021-01-08] MEDS: cefTRIAXone 1 GM in D5W 55 ML IVPB SCH (09:06)
--- NOTE | 2021-01-08 09:10 | Pulmonology Progress Note ---
Subjective ROS Limited/Unobtainable: Yes Interval Events: None major reported per nursing Constitutional: Reports: no symptoms HEENT: Repors: no symptoms Respiratory: Reports: shortness of breath Cardiovascular: Reports: no symptoms Gastrointestinal/Abdominal: Reports: no symptoms Genitourinary: Reports: no symptoms Allergies: Coded Allergies: No Known Allergies (Unverified , 01/06/21) Objective Last 24 Hour Vital Signs Date Time Temp Pulse Resp B/P (MAP) Pulse Ox O2 Delivery O2 Flow Rate FiO2 01/08/21 04:00 Nasal Cannula 2.0 01/08/21 04:00 78 01/08/21 04:00 97.0 75 22 122/66 (84) 100 01/08/21 02:26 75 20 129/78 100 01/08/21 00:53 91 20 145/79 100 01/08/21 00:00 97.8 100 22 148/99 (115) 100 01/08/21 00:00 Nasal Cannula 2.0 01/08/21 00:00 83 01/07/21 20:00 96.3 91 18 142/86 (104) 100 01/07/21 20:00 87 01/07/21 20:00 Nasal Cannula 2.0 01/07/21 19:00 98 Nasal Cannula 2.0 28 01/07/21 16:00 112 01/07/21 16:00 97.3 100 24 157/88 (111) 97 01/07/21 16:00 2.0 01/07/21 16:00 Nasal Cannula 2.0 01/07/21 14:54 112 28 154/77 (102) 100 01/07/21 12:00 2.0 01/07/21 12:00 Nasal Cannula 2.0 01/07/21 11:38 107 01/07/21 10:24 100 24 157/88 99 01/07/21 09:54 114 28 154/77 100 Intake and Output 01/07/21 01/08/21 19:00 07:00 Intake Total 909.665 ml 1065.285 ml Output Total 450 ml 500 ml Balance 459.665 ml 565.285 ml Intake Oral 100 ml IV Total 909.665 ml 965.285 ml Output Urine Total 450 ml 500 ml General Appearance: no acute distress HEENT: atraumatic Respiratory: crackles/rales Cardiovascular: regular rhythm, tachycardia Abdomen: soft, non tender Microbiology Date/Time Source Procedure Growth Status 01/06/21 06:13 Nasal Nares - Final Complete 01/06/21 06:13 Nasal Nares - Final Complete 01/06/21 06:13 Nasopharynx Coronavirus COVID-19 PCR ([facility]) - Final Complete 01/06/21 03:45 Blood Blood Culture - Preliminary NO GROWTH AFTER 24 HOURS Resulted 01/06/21 03:30 Blood Blood Culture - Preliminary NO GROWTH AFTER 24 HOURS Resulted Laboratory Tests 01/07/21 12:00: Activated Partial Thromboplast Time 105H 01/07/21 18:50: Activated Partial Thromboplast Time 76H 01/08/21 04:00: Activated Partial Thromboplast Time 85H Current Medications Medications (Trade) Dose Ordered Sig/Lexi Route PRN Reason Start Time Stop Time Status Last Admin Dose Admin Acetaminophen (Tylenol) 650 mg Q6H PRN ORAL Mild Pain (Pain Scale 1-3) 01/06/21 16:15 02/05/21 16:14 01/06/21 16:46 Ceftriaxone Sodium 1 gm/ Dextrose 55 ml @ 110 mls/hr Q24H IVPB 01/06/21 10:00 01/13/21 09:59 01/08/21 09:06 Dexamethasone Sodium Phosphate (Decadron 4mg/ml vial) 6 mg DAILY IVP 01/07/21 09:00 01/15/21 09:01 01/08/21 08:55 Heparin Sodium/ Dextrose 500 ml @ 13.844 mls/ hr ADJUST PER PROTOCOL IV 01/07/21 13:15 02/06/21 13:14 01/08/21 00:52 Lorazepam (Ativan 2mg/ml 1ml) 0.5 mg Q6H PRN IV For Anxiety 01/07/21 09:30 01/14/21 09:29 01/08/21 00:53 Sodium Chloride 1,000 ml @ 75 mls/hr [id number] IV 01/06/21 09:30 02/05/21 09:29 01/08/21 00:51 Assessment/Plan Assessment/Plan 1. Hypoxemic respiratory distress; improving -now off BiPAP -> now saturating at 91% on 5L NC; continue to wean as tolerated - Continue dexamethasone (01/07-) 2. COVID-19 PCR negative (01/06) - off isolation 3. Pneumonia -On broad-spectrum antibiotics per primary MD 4. Elevated BNP - s/p Lasix in the ER 5. Elevated D-dimer with tachycardia - On heparin drip for DVT prophylaxis -Venous duplex of legs negative for DVT The care for this patient was discussed with my supervising physician. Time spent for this case was approximately 31 minutes. Moo Emmanuel Jan 08, 2021 09:10
[2021-01-08 12:00] VITALS: BP 110/62
--- NOTE | 2021-01-08 12:51 | General Progress Note ---
Subjective Date patient seen: Jan 08, 2021 Constitutional: Reports: weakness HEENT: Reports: no symptoms Respiratory: Reports: shortness of breath, SOB with excertion Gastrointestinal/Abdominal: Reports: no symptoms Genitourinary: Reports: no symptoms Neurologic/Psychiatric: Reports: weakness Endocrine: Reports: no symptoms Allergies: Coded Allergies: No Known Allergies (Unverified , 01/06/21) Objective Last 24 Hour Vital Signs Date Time Temp Pulse Resp B/P (MAP) Pulse Ox O2 Delivery O2 Flow Rate FiO2 01/08/21 12:00 Nasal Cannula 2.0 01/08/21 08:00 97.2 99 22 124/88 (100) 95 01/08/21 08:00 Nasal Cannula 2.0 01/08/21 07:31 79 01/08/21 04:00 Nasal Cannula 2.0 01/08/21 04:00 78 01/08/21 04:00 97.0 75 22 122/66 (84) 100 01/08/21 02:26 75 20 129/78 100 01/08/21 00:53 91 20 145/79 100 01/08/21 00:00 97.8 100 22 148/99 (115) 100 01/08/21 00:00 Nasal Cannula 2.0 01/08/21 00:00 83 01/07/21 20:00 96.3 91 18 142/86 (104) 100 01/07/21 20:00 87 01/07/21 20:00 Nasal Cannula 2.0 01/07/21 19:00 98 Nasal Cannula 2.0 28 01/07/21 16:00 112 01/07/21 16:00 97.3 100 24 157/88 (111) 97 01/07/21 16:00 2.0 01/07/21 16:00 Nasal Cannula 2.0 01/07/21 14:54 112 28 154/77 (102) 100 Intake and Output 01/07/21 01/08/21 19:00 07:00 Intake Total 909.665 ml 1065.285 ml Output Total 450 ml 500 ml Balance 459.665 ml 565.285 ml Intake Oral 100 ml IV Total 909.665 ml 965.285 ml Output Urine Total 450 ml 500 ml Laboratory Tests 01/07/21 18:50: Activated Partial Thromboplast Time 76H 01/08/21 04:00: Activated Partial Thromboplast Time 85H Height (Feet): 5 Height (Inches): 2.00 Weight (Pounds): 109 General Appearance: alert EENT: PERRL/EOMI Neck: supple Cardiovascular: regular rhythm Respiratory/Chest: crackles/rales Abdomen: non tender, soft Extremities: non-tender Assessment/Plan Status: stable Assessment/Plan: covid 19 negative ac copd exacerabation chf htn cardiac arrhtemia agitation cont iv abx iv decadrone on heparin drip add ativan fu labs dw pulmonary cardiology on the case left message to the son yesterday and today doarashot trudi c up the phone and voice message is full transfer to Vinod Jung MD Jan 08, 2021 12:51
--- NOTE | 2021-01-08 12:54 | NUR ---
CASE MANAGEMENT:REVIEW 01/08/21 SI: NSTEMI. COPD. CHF. COVID NEG 97.2 99 22 124/88 95% ON 2L/NC APTT+85 IS: HEPARIN GTT IV DECADRON QD IV ROCEPHIN Q24 IVF@75/HR : STEP DOWN UNIT DCP: FROM HOME PLAN: MOVE TO LOWER LEVEL OF CARE WEAN TO ROOM AIR IF POSSIBLE
--- NOTE | 2021-01-08 13:37 | Cardiology Progress Note ---
Assessment/Plan Assessment/Plan The patient is seen and examined, full consult note is dictated. Objective Last 24 Hour Vital Signs Date Time Temp Pulse Resp B/P (MAP) Pulse Ox O2 Delivery O2 Flow Rate FiO2 01/08/21 12:00 97.1 72 20 110/62 (78) 100 01/08/21 12:00 Nasal Cannula 2.0 01/08/21 08:00 97.2 99 22 124/88 (100) 95 01/08/21 08:00 Nasal Cannula 2.0 01/08/21 07:31 79 01/08/21 04:00 Nasal Cannula 2.0 01/08/21 04:00 78 01/08/21 04:00 97.0 75 22 122/66 (84) 100 01/08/21 02:26 75 20 129/78 100 01/08/21 00:53 91 20 145/79 100 01/08/21 00:00 97.8 100 22 148/99 (115) 100 01/08/21 00:00 Nasal Cannula 2.0 01/08/21 00:00 83 01/07/21 20:00 96.3 91 18 142/86 (104) 100 01/07/21 20:00 87 01/07/21 20:00 Nasal Cannula 2.0 01/07/21 19:00 98 Nasal Cannula 2.0 28 01/07/21 16:00 112 01/07/21 16:00 97.3 100 24 157/88 (111) 97 01/07/21 16:00 2.0 01/07/21 16:00 Nasal Cannula 2.0 01/07/21 14:54 112 28 154/77 (102) 100 Intake and Output 01/07/21 01/08/21 19:00 07:00 Intake Total 909.665 ml 1065.285 ml Output Total 450 ml 500 ml Balance 459.665 ml 565.285 ml Intake Oral 100 ml IV Total 909.665 ml 965.285 ml Output Urine Total 450 ml 500 ml Laboratory Tests Test 01/07/21 18:50 01/08/21 04:00 Activated Partial Thromboplast Time 76 SEC (23-33) H 85 SEC (23-33) H Microbiology Date/Time Source Procedure Growth Status 01/06/21 06:13 Nasal Nares - Final Complete 01/06/21 06:13 Nasal Nares - Final Complete 01/06/21 06:13 Nasopharynx Coronavirus COVID-19 PCR ([facility]) - Final Complete 01/06/21 03:45 Blood Blood Culture - Preliminary NO GROWTH AFTER 48 HOURS Resulted 01/06/21 03:30 Blood Blood Culture - Preliminary NO GROWTH AFTER 48 HOURS Resulted Payam Hankins MD Jan 08, 2021 13:37
--- NOTE | 2021-01-08 13:52 | NUR ---
PT NOTE Received MD order for PT evaluation. Attempted to see patient for PT evaluation however patient not available due to echocardiogram being done. Sydni LOUIS notified, will follow up tomorrow.
[2021-01-08] MEDS: Aspirin EC 81mg tab ORAL SCH (14:35)
--- NOTE | 2021-01-08 14:46 | NUR ---
NURSE NOTES: Dr. Hankins is contacted regarding the troponin 20.36. Awaiting reply.
--- NOTE | 2021-01-08 14:56 | Infectious Diseases Prog Note ---
Assessment/Plan Assessment/Plan A 1. pneumonia improving, COVID19 - 2. increased LFT 3. anemia 4. MA 5. Acidosis 6. Hypoxic respiratory failute P 1. continue ceftriaxone 2. s/p 1 dose ivermectin 3. Discontinue dexamethasone Subjective ROS Limited/Unobtainable: Yes Respiratory: Denies: shortness of breath Allergies: Coded Allergies: No Known Allergies (Unverified , 01/06/21) Objective Last 24 Hour Vital Signs Date Time Temp Pulse Resp B/P (MAP) Pulse Ox O2 Delivery O2 Flow Rate FiO2 01/08/21 14:35 75 102/63 01/08/21 12:00 97.1 72 20 110/62 (78) 100 01/08/21 12:00 Nasal Cannula 2.0 01/08/21 08:00 97.2 99 22 124/88 (100) 95 01/08/21 08:00 Nasal Cannula 2.0 01/08/21 07:31 79 01/08/21 04:00 Nasal Cannula 2.0 01/08/21 04:00 78 01/08/21 04:00 97.0 75 22 122/66 (84) 100 01/08/21 02:26 75 20 129/78 100 01/08/21 00:53 91 20 145/79 100 01/08/21 00:00 97.8 100 22 148/99 (115) 100 01/08/21 00:00 Nasal Cannula 2.0 01/08/21 00:00 83 01/07/21 20:00 96.3 91 18 142/86 (104) 100 01/07/21 20:00 87 01/07/21 20:00 Nasal Cannula 2.0 01/07/21 19:00 98 Nasal Cannula 2.0 28 01/07/21 16:00 112 01/07/21 16:00 97.3 100 24 157/88 (111) 97 01/07/21 16:00 2.0 01/07/21 16:00 Nasal Cannula 2.0 01/07/21 14:54 112 28 154/77 (102) 100 Height (Feet): 5 Height (Inches): 2.00 Weight (Pounds): 109 HEENT: mucous membranes moist Respiratory/Chest: lungs clear, other - oxygen by nasal cannula Cardiovascular: normal rate Abdomen: soft, non tender Extremities: no edema Neurologic/Psychiatric: alert, responsive Microbiology Date/Time Source Procedure Growth Status 01/06/21 06:13 Nasal Nares - Final Complete 01/06/21 06:13 Nasal Nares - Final Complete 01/06/21 06:13 Nasopharynx Coronavirus COVID-19 PCR (MAGGIE) - Final Complete 01/06/21 03:45 Blood Blood Culture - Preliminary NO GROWTH AFTER 48 HOURS Resulted 01/06/21 03:30 Blood Blood Culture - Preliminary NO GROWTH AFTER 48 HOURS Resulted Laboratory Tests Test 01/07/21 18:50 01/08/21 04:00 01/08/21 13:30 Activated Partial Thromboplast Time 76 SEC (23-33) H 85 SEC (23-33) H Troponin I 20.368 ng/mL (0.000-0.056) Current Medications Medications (Trade) Dose Ordered Sig/Lexi Route PRN Reason Start Time Stop Time Status Last Admin Dose Admin Acetaminophen (Tylenol) 650 mg Q6H PRN ORAL Mild Pain (Pain Scale 1-3) 01/06/21 16:15 02/05/21 16:14 01/06/21 16:46 Aspirin (Ecotrin) 81 mg DAILY ORAL 01/08/21 13:45 02/22/21 13:44 01/08/21 14:35 Atorvastatin Calcium (Lipitor) 80 mg BEDTIME ORAL 01/08/21 21:00 04/08/21 20:59 Ceftriaxone Sodium 1 gm/ Dextrose 55 ml @ 110 mls/hr Q24H IVPB 01/06/21 10:00 01/13/21 09:59 01/08/21 09:06 Dexamethasone Sodium Phosphate (Decadron 4mg/ml vial) 6 mg DAILY IVP 01/07/21 09:00 01/15/21 09:01 01/08/21 08:55 Heparin Sodium/ Dextrose 500 ml @ 13.844 mls/ hr ADJUST PER PROTOCOL IV 01/07/21 13:15 02/06/21 13:14 01/08/21 00:52 Lorazepam (Ativan 2mg/ml 1ml) 0.5 mg Q6H PRN IV For Anxiety 01/07/21 09:30 01/14/21 09:29 01/08/21 00:53 Metoprolol Tartrate (Lopressor) 25 mg Q12HR ORAL 01/08/21 13:45 04/08/21 13:44 01/08/21 14:35 Sodium Chloride 1,000 ml @ 75 mls/hr [id number] IV 01/06/21 09:30 02/05/21 09:29 01/08/21 14:36 Edson Davis MD Jan 08, 2021 14:56
--- NOTE | 2021-01-08 15:25 | NUR ---
NURSE NOTES: Dr. Hankins is contacted about the elevated troponin of 20.36. Awaiting reply.
[2021-01-08 16:00] VITALS: BP 114/68
--- NOTE | 2021-01-08 16:30 | NUR ---
NURSE NOTES: Contacted Dr. Hankins to relay troponin result of 20.36. The lady who answered phone in clinic said Dr. Hankins is on the way to the hospital now.
--- NOTE | 2021-01-08 16:54 | NUR ---
INSURANCE CLINICALS/REVIEW FAXED TO [facility]#[phone] fax#[phone]
--- NOTE | 2021-01-08 17:41 | NUR ---
NURSE NOTES: I was notified By Primary RN Sydni Elliott,patient for transfer to [facility] for cardiac catheterization Addendum: 01/08/21 at 1746 by Agnieszka Barger RN notified Bethanie Romero-supervisor case loading with transfer orders to [facility] for cardiac catheterization
[2021-01-08] MEDS ORDERED: Enoxaparin 60mg Inj SUBQ SCH (17:45)
--- NOTE | 2021-01-08 17:52 | NUR ---
[facility] NOTES REFERRAL FAXED TO [facility] FOR TRANSFER. PROVIDED NURSING STATION NUMBER FOR UPDATES. [phone]
--- NOTE | 2021-01-08 19:25 | NUR ---
NURSE HAND-OFF REPORT: Important Events on Shift:Troponin elevated. Pt for transfer to [facility] Patient Status: full code Diet: Mechanical soft diet Pending Orders: N Pending Results/Labs:N Pending notification:N Latest Vital Signs: Temperature 97.6 , Pulse 69 , B/P 114 /68 , Respiratory Rate 20 , O2 SAT 100 , Bi-pap, O2 Flow Rate 3.0 . Vital Sign Comment: stable EKG Rhythm: Sinus Rhythm Rhythm change?: N MD Notified?: -Dr. Cr GUZMAN Response: Latest Joiner Fall Score: 45 Fall Risk: High Risk Safety Measures: Call light Within Reach, Bed Alarm Zone 1, Side Rails Side Rails x3, Bed position Low and Locked. Fall Precautions: Yellow Socks Yellow Gown Door Sign Patient Fall Education Report given to MISSY Bridges.
--- NOTE | 2021-01-08 19:26 | NUR ---
NURSE NOTES: Received patient from MISSY Troy under the care of Dr. Bowers for the admitting dx. of SOB. Patient noted MKA and full code status. Patient is standard precaution. Patient is alert and oriented x2 verbally responsive with clear speech. Able to tolerate O2 settings well. Patient is waiting for transfer to [facility] for cardiac catheterization.
--- NOTE | 2021-01-08 19:29 | Consultation ---
DATE OF CONSULTATION: 01/08/2021 CARDIOLOGY CONSULTATION CONSULTING PHYSICIAN: Payam Hankins M.D. REFERRING PHYSICIAN: Vinod Bowers M.D. REASON FOR CONSULTATION: Management of shortness of breath. HISTORY OF PRESENT ILLNESS: This woman is a very unfortunate 89-year-old female who was brought in by her son for evaluation of shortness of breath that has been going on for about a week. The patient is a poor historian and is not capable of providing a detailed history. At the time of arrival to the hospital, the patient did not have any chest pain. Her past medical history is significant for history of COPD and history of tobacco use in the past. The patient does not take any medication. At the time of arrival to this facility, blood pressure was 173/102 mmHg and heart rate was 132. A 12-lead electrocardiogram was significant for sinus tachycardia, heart rate of 121 with left axis deviation and left bundle-branch block. In the course of the hospitalization, the patient also had a supraventricular tachycardia, which was felt converted. In the emergency department, initial laboratories showed a troponin I level of 0.93 and proBNP of 5442. The patient was diagnosed with [id number] myocardial infarction, was admitted to [facility]. Cardiology consultation was made at request of Dr. Bowers for evaluation of [id number] myocardial infarction. The patient had a chest x-ray in the emergency department, which showed cardiomegaly with increased interstitial markings/pulmonary edema suggestive of congestive heart failure. There was trace bilateral pleural effusions as well. PAST MEDICAL HISTORY: 1. Hypertension, on no medication. 2. COPD. 3. Former smoker. PAST SURGICAL HISTORY: None. FAMILY HISTORY: No premature coronary artery disease in first-degree relatives. REVIEW OF SYSTEMS: A 12-system review was done, essentially negative except what was mentioned in history of present illness. MEDICATIONS: List of medications none. ALLERGIES: No known drug allergies. HABITS: History of tobacco use in the past. PHYSICAL EXAMINATION: VITAL SIGNS: Blood pressure was 173/102 mmHg, heart rate of 132, respirations of 30, pulse ox of 92% on room air, temperature 99.0 degrees Fahrenheit. GENERAL: The patient is a very unfortunate 89-year-old female, in mild respiratory distress. Awake and communicating, somewhat confused. HEENT: Atraumatic and normocephalic. Anicteric. Pupils are equal, round, and reactive to light and accommodation. Extraocular muscles intact. NECK: Elevated JVD to about 10 cm. No carotid bruit. Carotid upstrokes 2+ bilaterally. CARDIOVASCULAR: Normal S1, S2. Regular rate and rhythm. There is a 2/6 mid systolic murmur at the left sternal border. PMI is at the fourth intercostal space in the midclavicular line. LUNGS: Prolonged expiratory phase with bilateral rhonchi. ABDOMEN: Soft, nontender, nondistended. No hepatosplenomegaly. Positive bowel sounds. EXTREMITIES: No evidence of edema, clubbing, or cyanosis. LABORATORY FINDINGS: WBC was 4.5, hemoglobin of 11.7, hematocrit of 36.8, and platelet count of 185. Sodium was 135, potassium is 4.3, chloride 105, bicarbonate 27, BUN of 25, creatinine 1.1, glucose is 186, and calcium of 9.1. ASSESSMENT AND PLAN: The patient is a very unfortunate 89-year-old female seen in cardiology consultation. 1. Dyspnea, most likely due to acute exacerbation of COPD. There are also rhonchi on the physical examination. The patient requires to be on Solu-Medrol, inhalers, pulmonary toilet, IV antibiotic, and oxygenation. A 2D echocardiography will be required for assessment of LV systolic and diastolic function in view of elevated BNP. There might be some component of congestive heart failure. The patient will benefit from a small dose of Lasix as well. 2. Elevated troponin I level, most likely demand ischemia or type 2 gvv-KS-iwstzizvu myocardial infarction. We will obtain another troponin I level and a 2D echocardiography for assessment of LV function and wall motion. 3. Further therapeutic and diagnostic decision will be based on the results of the echocardiography. In the meantime, the patient will be started on aspirin 81 mg p.o. daily, atorvastatin 80 mg at bedtime, and metoprolol 50 mg twice daily. I would like to thank Dr. Bowers for the courtesy of this consultation. Payam Hankins M.D. DR: ARTURO JOB#: [id number] CC:
[2021-01-08 20:00] VITALS: BP 117/76
[2021-01-08] MEDS: Atorvastatin 80mg tab ORAL SCH (21:45)
--- NOTE | 2021-01-08 22:50 | NUR ---
NURSE NOTES: Spoke with [facility] telemarketer supervisor regarding patient transfer per MD Hankins's order. She said that authorization from [facility] needs to be approved first and that they are currently at capacity for ICU beds. They will work on getting the transfer but they need the corresponding paperwork first. Will endorse to next shift regarding matter to update Case management. Will continue with current plan of care for patient.
[2021-01-09] VITALS: BP 124/62
--- NOTE | 2021-01-09 01:00 | NUR ---
NURSE NOTES: Patient awake and noted with episode of confusion. Patient reoriented and distracted with TV and reality reorientation. Noted effective and patient now resting comfortably. Troponin levels drawn awaiting results.
[2021-01-09 04:00] VITALS: BP 125/72
--- NOTE | 2021-01-09 04:00 | NUR ---
NURSE NOTES: Patient woken due to blood draw in confused and distressed episode. Reality reorientation and distraction provided. Noted effective. Patient noted aware of self and where she is. Returned to calm demeanor. Will continue to monitor.
[2021-01-09] MEDS ORDERED: Heparin 5000 units/ml inj IV ONE (05:30)
--- NOTE | 2021-01-09 07:15 | NUR ---
NURSE HAND-OFF REPORT: Important Events on Shift: Dose rate change for heparin drip Patient Status: Stable Diet: Pending Orders: Transfer to [facility] Pending Results/Labs: Pending MD notification: Latest Vital Signs: Temperature 97.3 , Pulse 70 , B/P 125 /72 , Respiratory Rate 20 , O2 SAT 100 , Bi-pap, O2 Flow Rate 2.0 . Vital Sign Comment: WNL EKG Rhythm: SRw/BBB Rhythm change?: N MD Notified?: -Dr. Cr GUZMAN Response: Latest Joiner Fall Score: 45 Fall Risk: High Risk Safety Measures: Call light Within Reach, Bed Alarm Zone 1, Side Rails Side Rails x3, Bed position Low and Locked. Fall Precautions: Yellow Socks Yellow Gown Door Sign Patient Fall Education Report given to MISSY Wadsworth.
--- NOTE | 2021-01-09 07:30 | NUR ---
NURSE NOTES: Received pt from MISSY Gaona, pt is awake and confused and anxious, pt has NC 2lit, pt has intact iv access LAC 22G Hep drip 16unit/kg/hr and RH 22G 1/2NS 75ml/hr are running well. waiting for bed to transfer pt to [facility]. All needs attended, bed is locked and is in the lowest position, call light within easy reach. will continue to monitor.
[2021-01-09 08:00] VITALS: BP 153/90
--- NOTE | 2021-01-09 08:40 | NUR ---
NURSE NOTES: 0838 Followed up status transfer for cardiac cath,spoke to Dana-supervisor building maintenance,there is no bed at this time,will call in 2 hours as instructed
--- NOTE | 2021-01-09 09:00 | NUR ---
NURSE NOTES: Dr Hankins notified regarding troponin 19.913, waiting to call back. will continue to close monitoring.
[2021-01-09] MEDS: Aspirin EC 81mg tab ORAL SCH (09:25)
[2021-01-09] MEDS: cefTRIAXone 1 GM in D5W 55 ML IVPB SCH (09:25)
--- NOTE | 2021-01-09 09:29 | Pulmonology Progress Note ---
Subjective ROS Limited/Unobtainable: Yes Interval Events: None major reported per nursing Constitutional: Reports: no symptoms HEENT: Repors: no symptoms Respiratory: Reports: shortness of breath Cardiovascular: Reports: no symptoms Gastrointestinal/Abdominal: Reports: no symptoms Genitourinary: Reports: no symptoms Allergies: Coded Allergies: No Known Allergies (Unverified , 01/06/21) Objective Last 24 Hour Vital Signs Date Time Temp Pulse Resp B/P (MAP) Pulse Ox O2 Delivery O2 Flow Rate FiO2 01/09/21 09:25 92 153/90 01/09/21 08:00 Nasal Cannula 2.0 01/09/21 08:00 97.3 92 20 153/90 (111) 97 01/09/21 07:05 100 Nasal Cannula 3.0 32 01/09/21 04:00 70 01/09/21 04:00 Nasal Cannula 2.0 01/09/21 04:00 97.3 75 20 125/72 (89) 100 01/09/21 00:00 98.1 82 20 124/62 (82) 100 01/09/21 00:00 65 01/09/21 00:00 Nasal Cannula 2.0 01/08/21 21:46 81 117/76 01/08/21 20:00 97.9 81 20 117/76 (90) 100 01/08/21 20:00 Nasal Cannula 2.0 01/08/21 19:48 75 01/08/21 19:37 100 Nasal Cannula 3.0 32 01/08/21 16:00 97.6 69 20 114/68 (83) 100 01/08/21 16:00 66 01/08/21 16:00 Nasal Cannula 2.0 01/08/21 14:35 75 102/63 01/08/21 12:00 97.1 72 20 110/62 (78) 100 01/08/21 12:00 Nasal Cannula 2.0 01/08/21 12:00 74 Intake and Output 01/08/21 01/09/21 19:00 07:00 Intake Total 780.91 ml 323.94 ml Output Total 600 ml 500 ml Balance 180.91 ml -176.06 ml Intake Oral 240 ml IV Total 780.91 ml 83.94 ml Output Urine Total 600 ml 500 ml General Appearance: no acute distress HEENT: atraumatic Respiratory: crackles/rales Cardiovascular: regular rhythm, tachycardia Abdomen: soft, non tender Laboratory Tests 01/08/21 13:30: Troponin I 20.368H 01/08/21 18:30: Troponin I 18.628H 01/09/21 01:00: Troponin I 19.436H 01/09/21 04:00: Activated Partial Thromboplast Time 63H 01/09/21 08:15: Troponin I 19.913H Current Medications Medications (Trade) Dose Ordered Sig/Lexi Route PRN Reason Start Time Stop Time Status Last Admin Dose Admin Acetaminophen (Tylenol) 650 mg Q6H PRN ORAL Mild Pain (Pain Scale 1-3) 01/06/21 16:15 02/05/21 16:14 01/06/21 16:46 Aspirin (Ecotrin) 81 mg DAILY ORAL 01/08/21 13:45 02/22/21 13:44 01/09/21 09:25 Atorvastatin Calcium (Lipitor) 80 mg BEDTIME ORAL 01/08/21 21:00 04/08/21 20:59 01/08/21 21:45 Ceftriaxone Sodium 1 gm/ Dextrose 55 ml @ 110 mls/hr Q24H IVPB 01/06/21 10:00 01/13/21 09:59 01/09/21 09:25 Heparin Sodium/ Dextrose 500 ml @ 15.821 mls/ hr ADJUST PER PROTOCOL IV 01/07/21 13:15 02/06/21 13:14 01/08/21 00:52 Lorazepam (Ativan 2mg/ml 1ml) 0.5 mg Q6H PRN IV For Anxiety 01/07/21 09:30 01/14/21 09:29 01/08/21 00:53 Metoprolol Tartrate (Lopressor) 25 mg Q12HR ORAL 01/08/21 13:45 04/08/21 13:44 01/09/21 09:25 Sodium Chloride 1,000 ml @ 75 mls/hr [id number] IV 01/06/21 09:30 02/05/21 09:29 01/09/21 04:15 Assessment/Plan Assessment/Plan 1. Hypoxemic respiratory distress; improving -now off BiPAP -> now saturating well on 2L NC; continue to wean as tolerated - s/p dexamethasone (01/07-01/08) 2. COVID-19 PCR negative (01/06) - off isolation 3. Pneumonia -On broad-spectrum antibiotics per primary MD 4. Elevated BNP - s/p Lasix in the ER 5. Elevated D-dimer with tachycardia - On heparin drip for DVT prophylaxis -Venous duplex of legs negative for DVT 6. Elevated troponin - Noted plans for transfer to [facility] for cath The care for this patient was discussed with my supervising physician. Time spent for this case was approximately 31 minutes. Moo Emmanuel Jan 09, 2021 09:29
[2021-01-09 09:37] LABS: BASOPHILS % (AUTO) 0.6 % (0.0-2.0); EOSINOPHILS % (AUTO) 0.1 % (0.0-3.0); HEMATOCRIT 31.1 % (37.0-47.0); LYMPHOCYTES % (AUTO) 8.9 % (20.0-45.0); MEAN CORPUSCULAR VOLUME 93 FL (80-99); MONOCYTES % (AUTO) 15.9 % (1.0-10.0); NEUTROPHILS % (AUTO) 74.4 % (45.0-75.0); PLATELET COUNT 135 K/UL (150-450); RED BLOOD COUNT 3.36 M/UL (4.20-5.40); RED CELL DISTRIBUTION WIDTH 12.7 % (11.6-14.8); WHITE BLOOD COUNT 9.6 K/UL (4.8-10.8)
--- NOTE | 2021-01-09 09:41 | NUR ---
CASE MANAGEMENT:REVIEW 01/09/21 SI: NSTEMI. COPD. CHF. COVID NEG 97.3 92 20 153/90 97% ON 2L/NC H/H-10.0/31.1 PLT-135 TROPONIN(+) 19.913 IS: HEPARIN GTT IV ROCEPHIN Q24 IVF@75/HR LOPRESSOR PO Q12 ASA PO QD : STEP DOWN UNIT DCP: FROM HOME PLAN: MOVE TO HIGHER LEVEL OF CARE ~ [facility]
--- NOTE | 2021-01-09 10:08 | NUR ---
NURSE NOTES: Notified Dr. Hankins troponin this morning-19.913,no bed yet in [facility],Dr. Hankins asking for skilled nursing case manager to try transfer to [facility] or [facility] for cardiac catheterization
--- NOTE | 2021-01-09 10:11 | Infectious Diseases Prog Note ---
Assessment/Plan Assessment/Plan antibiotics : ceftraixone A 1. pneumonia improving covid 19 negative 2. increased LFT 3. anemia P 1. continue ceftriaxone 2. will follow up cultures Subjective ROS Limited/Unobtainable: Yes Allergies: Coded Allergies: No Known Allergies (Unverified , 01/06/21) Objective Last 24 Hour Vital Signs Date Time Temp Pulse Resp B/P (MAP) Pulse Ox O2 Delivery O2 Flow Rate FiO2 01/09/21 09:25 92 153/90 01/09/21 08:00 Nasal Cannula 2.0 01/09/21 08:00 97.3 92 20 153/90 (111) 97 01/09/21 07:05 100 Nasal Cannula 3.0 32 01/09/21 04:00 70 01/09/21 04:00 Nasal Cannula 2.0 01/09/21 04:00 97.3 75 20 125/72 (89) 100 01/09/21 00:00 98.1 82 20 124/62 (82) 100 01/09/21 00:00 65 01/09/21 00:00 Nasal Cannula 2.0 01/08/21 21:46 81 117/76 01/08/21 20:00 97.9 81 20 117/76 (90) 100 01/08/21 20:00 Nasal Cannula 2.0 01/08/21 19:48 75 01/08/21 19:37 100 Nasal Cannula 3.0 32 01/08/21 16:00 97.6 69 20 114/68 (83) 100 01/08/21 16:00 66 01/08/21 16:00 Nasal Cannula 2.0 01/08/21 14:35 75 102/63 01/08/21 12:00 97.1 72 20 110/62 (78) 100 01/08/21 12:00 Nasal Cannula 2.0 01/08/21 12:00 74 Height (Feet): 5 Height (Inches): 2.00 Weight (Pounds): 109 Respiratory/Chest: lungs clear Cardiovascular: normal rate, regular rhythm, no gallop/murmur Abdomen: soft, non tender Extremities: no edema Laboratory Tests Test 01/08/21 13:30 01/08/21 18:30 01/09/21 01:00 01/09/21 04:00 Troponin I 20.368 ng/mL (0.000-0.056) 18.628 ng/mL (0.000-0.056) 19.436 ng/mL (0.000-0.056) Activated Partial Thromboplast Time 63 SEC (23-33) H Test 01/09/21 08:15 White Blood Count 9.6 K/UL (4.8-10.8) Red Blood Count 3.36 M/UL (4.20-5.40) L Hemoglobin 10.0 G/DL (12.0-16.0) L Hematocrit 31.1 % (37.0-47.0) L Mean Corpuscular Volume 93 FL (80-99) Mean Corpuscular Hemoglobin 29.7 PG (27.0-31.0) Mean Corpuscular Hemoglobin Concent 32.1 G/DL (32.0-36.0) Red Cell Distribution Width 12.7 % (11.6-14.8) Platelet Count 135 K/UL (150-450) L Mean Platelet Volume 8.5 FL (6.5-10.1) Neutrophils (%) (Auto) 74.4 % (45.0-75.0) Lymphocytes (%) (Auto) 8.9 % (20.0-45.0) L Monocytes (%) (Auto) 15.9 % (1.0-10.0) H Eosinophils (%) (Auto) 0.1 % (0.0-3.0) Basophils (%) (Auto) 0.6 % (0.0-2.0) Sodium Level 139 MMOL/L (136-145) Potassium Level 5.0 MMOL/L (3.5-5.1) Chloride Level 105 MMOL/L (98-107) Carbon Dioxide Level 25 MMOL/L (21-32) Anion Gap 9 mmol/L (5-15) Troponin I 19.913 ng/mL (0.000-0.056) Current Medications Medications (Trade) Dose Ordered Sig/Lexi Route PRN Reason Start Time Stop Time Status Last Admin Dose Admin Acetaminophen (Tylenol) 650 mg Q6H PRN ORAL Mild Pain (Pain Scale 1-3) 01/06/21 16:15 02/05/21 16:14 01/06/21 16:46 Aspirin (Ecotrin) 81 mg DAILY ORAL 01/08/21 13:45 02/22/21 13:44 01/09/21 09:25 Atorvastatin Calcium (Lipitor) 80 mg BEDTIME ORAL 01/08/21 21:00 04/08/21 20:59 01/08/21 21:45 Ceftriaxone Sodium 1 gm/ Dextrose 55 ml @ 110 mls/hr Q24H IVPB 01/06/21 10:00 01/13/21 09:59 01/09/21 09:25 Heparin Sodium/ Dextrose 500 ml @ 15.821 mls/ hr ADJUST PER PROTOCOL IV 01/07/21 13:15 02/06/21 13:14 01/08/21 00:52 Lorazepam (Ativan 2mg/ml 1ml) 0.5 mg Q6H PRN IV For Anxiety 01/07/21 09:30 01/14/21 09:29 01/08/21 00:53 Metoprolol Tartrate (Lopressor) 25 mg Q12HR ORAL 01/08/21 13:45 04/08/21 13:44 01/09/21 09:25 Sodium Chloride 1,000 ml @ 75 mls/hr [id number] IV 01/06/21 09:30 02/05/21 09:29 01/09/21 04:15 Emmie Dickson MD Jan 09, 2021 10:11
--- NOTE | 2021-01-09 10:13 | NUR ---
NURSE NOTES: Spoke to Rose Tejada-case management coordinator patient for transfer to [facility] for cardiac catheterization,no bed available, Dr. Hankins ask clinical business manager to try [facility] or [facility],I notified her I spoke to Bethanie Romero last night patient for transfer to [facility] for Cardiac catheterization
--- NOTE | 2021-01-09 10:21 | NUR ---
NURSE NOTES: Dr Hankins called back regarding troponin 19.913, ordered plavix 300mg once and 75mg daily, noted and carried out. will continue to close monitoring.
--- NOTE | 2021-01-09 10:40 | NUR ---
PT NOTE Received MD order for PT evaluation. Patient with elevated troponin, waiting for transfer to higher level of care for cardiac cath. PT evaluation deferred, discussed with Ananth LOUIS, will follow.
--- NOTE | 2021-01-09 11:00 | NUR ---
TRANSFER UPDATE WAITING FOR AVAILABLE BED AT [facility] FOR CARDIAC CATH LEFT MESSAGE FRO DR JAIMES ASKING HIM TO CALL [facility] AND PLACE PATIENT ON THE LIST FOR TRANSFER FAXED FACE SHEET TO [facility] T: [phone] F: [phone]
--- NOTE | 2021-01-09 11:22 | NUR ---
NURSE NOTES: RN [facility] for plavix 300mg, they haven't sent it yet. will continue to F/U.
[2021-01-09 11:31] LABS: BLOOD UREA NITROGEN 29 mg/dL (7-18)
--- NOTE | 2021-01-09 11:49 | General Progress Note ---
Subjective Constitutional: Reports: no symptoms HEENT: Reports: no symptoms Cardiovascular: Reports: chest pain Respiratory: Reports: SOB with excertion Gastrointestinal/Abdominal: Reports: no symptoms Genitourinary: Reports: no symptoms Neurologic/Psychiatric: Reports: anxiety Allergies: Coded Allergies: No Known Allergies (Unverified , 01/06/21) Objective Last 24 Hour Vital Signs Date Time Temp Pulse Resp B/P (MAP) Pulse Ox O2 Delivery O2 Flow Rate FiO2 01/09/21 09:25 92 153/90 01/09/21 08:00 82 01/09/21 08:00 Nasal Cannula 2.0 01/09/21 08:00 97.3 92 20 153/90 (111) 97 01/09/21 07:05 100 Nasal Cannula 3.0 32 01/09/21 04:00 70 01/09/21 04:00 Nasal Cannula 2.0 01/09/21 04:00 97.3 75 20 125/72 (89) 100 01/09/21 00:00 98.1 82 20 124/62 (82) 100 01/09/21 00:00 65 01/09/21 00:00 Nasal Cannula 2.0 01/08/21 21:46 81 117/76 01/08/21 20:00 97.9 81 20 117/76 (90) 100 01/08/21 20:00 Nasal Cannula 2.0 01/08/21 19:48 75 01/08/21 19:37 100 Nasal Cannula 3.0 32 01/08/21 16:00 97.6 69 20 114/68 (83) 100 01/08/21 16:00 66 01/08/21 16:00 Nasal Cannula 2.0 01/08/21 14:35 75 102/63 01/08/21 12:00 97.1 72 20 110/62 (78) 100 01/08/21 12:00 Nasal Cannula 2.0 01/08/21 12:00 74 Intake and Output 01/08/21 01/09/21 19:00 07:00 Intake Total 780.91 ml 323.94 ml Output Total 600 ml 500 ml Balance 180.91 ml -176.06 ml Intake Oral 240 ml IV Total 780.91 ml 83.94 ml Output Urine Total 600 ml 500 ml Laboratory Tests 01/08/21 13:30: Troponin I 20.368H 01/08/21 18:30: Troponin I 18.628H 01/09/21 01:00: Troponin I 19.436H 01/09/21 04:00: Activated Partial Thromboplast Time 63H 01/09/21 08:15: White Blood Count 9.6, Red Blood Count 3.36L, Hemoglobin 10.0L, Hematocrit 31.1L , Mean Corpuscular Volume 93, Mean Corpuscular Hemoglobin 29.7, Mean Corpuscular Hemoglobin Concent 32.1, Red Cell Distribution Width 12.7, Platelet Count 135L, Mean Platelet Volume 8.5, Neutrophils (%) (Auto) 74.4, Lymphocytes (%) (Auto) 8.9L, Monocytes (%) (Auto) 15.9H, Eosinophils (%) (Auto) 0.1, Basophils (%) (Auto) 0.6, Sodium Level 139, Potassium Level 5.0, Chloride Level 105, Carbon Dioxide Level 25, Anion Gap 9, Blood Urea Nitrogen 29H, Creatinine 1.0, Estimat Glomerular Filtration Rate > 60, Troponin I 19.913H Height (Feet): 5 Height (Inches): 2.00 Weight (Pounds): 109 General Appearance: alert EENT: PERRL/EOMI Neck: supple Cardiovascular: regular rhythm Respiratory/Chest: crackles/rales Abdomen: non tender, soft Genitourinary/Rectal: normal rectal exam Extremities: non-tender Assessment/Plan Status: stable Assessment/Plan: nstemi on medical tx, waiting for cardiac cath at [facility] or [facility] covid 19 negative ac copd exacerabation chf htn cardiac arrhtemia agitation cont iv abx iv decadrone on heparin drip add ativan fu labs dw pulmonary cardiology on the case left message to the son yesterday and today does not p c up the phone and voice message is full Vinod Bowers MD Jan 09, 2021 11:49
[2021-01-09 12:00] VITALS: BP 119/82
--- NOTE | 2021-01-09 12:00 | NUR ---
NURSE NOTES: pharmacyst Ann is aware about ptt 63 and plt 135, stated we can continue the new bag with the same rate. done.
[2021-01-09] MEDS: Heparin 25,000u/D5W 500ml 500 ML IV SCH (12:10)
--- NOTE | 2021-01-09 12:37 | NUR ---
RD ASSESSMENT & RECOMMENDATIONS SEE CARE ACTIVITY FOR COMPLETE ASSESSMENT DAILY ESTIMATED NEEDS: Needs based on cardiac, pulmonary/ 52kg 25-30 kcals/kg 9664-8044 total kcals 1-1.5 g protein/kg 52-78 g total protein 25-30 mL/kg 1115-3249 total fluid mLs NUTRITION DIAGNOSIS: Altered nutrition related lab values R/T cardiac Hx including NSTEMI, CHF, HTN as evidenced by elev elev troponin (19.913), elev BNP (5442), elev BPs. CURRENT DIET:REGULAR, mech soft ground PO DIET RECOMMENDATIONS: W/ poor PO intake, rec liberalized regular diet/ texture per AUTOMATIC PAINT SPRAYER OPERATOR ADDITIONAL RECOMMENDATIONS: * Calibrated bedscale wt * AUTOMATIC PAINT SPRAYER OPERATOR eval for appropriate texture * Ensure Enlive TID w/ meals (350kcal/20g prot each) * W/ PO intake consistently >50%, rec LOW NA diet.
[2021-01-09] MEDS ORDERED: Heparin 5000 units/ml inj IV SCH (13:30)
[2021-01-09] MEDS ORDERED: Heparin 25,000u/D5W 500ml 500 ML IV SCH ×2 (13:30→20:49)
--- NOTE | 2021-01-09 14:28 | NUR ---
LETTUCE CUTTER NOTES MESSAGE LEFT FOR PAM AT [facility] FOR AUTHORIZATION TO TRANSFER TO [facility] FOR CARDIAC CATH. WILL FOLLOW UP. Addendum: 01/09/21 at 1721 by VINI ALMEIDA RN CM SPOKE WITH SONI, AUTHORIZATION GIVEN TO [facility], ACCEPTING MD DR. MCDERMOTT. SPOKE WITH LAURA NO ICU BEDS AT THIS TIME. PROVIDED LAURA WITH THE NURSING STATION NUMBER IN CASE A BED BECOMES AVAILABLE. PT HAS TO BE ADMITTED TO THE ICU BECOMES OF ELEVATED TROPONIN. [facility] [employer] [phone]
--- NOTE | 2021-01-09 14:59 | Cardiology Report ---
APPROVED REPORT EKG Measurement Heart [id number] [id number] <Conclusion> Normal sinus rhythm Right bundle branch block Left anterior fascicular block Bifascicular block Voltage criteria for left ventricular hypertrophy Possible Lateral infarct, age undetermined Inferior infarct, age undetermined Abnormal ECG
--- NOTE | 2021-01-09 15:23 | Cardiology Report ---
APPROVED REPORT EKG Measurement Heart [id number] [id number] <Conclusion> Sinus tachycardia Left axis deviation Right bundle branch block Abnormal ECG
--- NOTE | 2021-01-09 15:33 | NUR ---
INSURANCE CLINICALS/REVIEW FAXED TO [facility]#[phone] fax#[phone]
[2021-01-09 16:00] VITALS: BP 151/72
--- NOTE | 2021-01-09 17:45 | Cardiology Progress Note ---
Assessment/Plan Status: stable Status Narrative 89 yo F admitted for chest pain and SOB. NSTEMI with troponin elevation, in acute HF with fluid overload and elevated BNP. Echo EF 40-45% with severe . Transfer pending Assessment/Plan 1. NSTEMI with troponin elevation and chest pain now chest pain free heparin gtt plavix and asa 2. HFrEF, acute on chronic systolic on diastolic HF with elevated BNP 3. Aortic valve stenosis - severe 4. HTN 5. Frailty and advanced age 6. Dementia Pt being transferred for higher level of care. Pt is unable to consent herself and calls have been made today to her son but he has been unreachable. Will follow for possible intervention at the request of Dr. Bowers and Dr. Hankins. Subjective ROS Limited/Unobtainable: No Subjective Feeling ok today, no new complaints. Able to talk in complete sentences without SOB. Denies chest pain. Objective Last 24 Hour Vital Signs Date Time Temp Pulse Resp B/P (MAP) Pulse Ox O2 Delivery O2 Flow Rate FiO2 01/09/21 12:00 85 01/09/21 12:00 Nasal Cannula 2.0 01/09/21 12:00 96.6 82 20 119/82 (94) 100 01/09/21 09:25 92 153/90 01/09/21 08:00 82 01/09/21 08:00 Nasal Cannula 2.0 01/09/21 08:00 97.3 92 20 153/90 (111) 97 01/09/21 07:05 100 Nasal Cannula 3.0 32 01/09/21 04:00 70 01/09/21 04:00 Nasal Cannula 2.0 01/09/21 04:00 97.3 75 20 125/72 (89) 100 01/09/21 00:00 98.1 82 20 124/62 (82) 100 01/09/21 00:00 65 01/09/21 00:00 Nasal Cannula 2.0 01/08/21 21:46 81 117/76 01/08/21 20:00 97.9 81 20 117/76 (90) 100 01/08/21 20:00 Nasal Cannula 2.0 01/08/21 19:48 75 01/08/21 19:37 100 Nasal Cannula 3.0 32 General Appearance: no apparent distress EENT: PERRL/EOMI Neck: supple, no JVD Rhythm: NSR Cardiovascular: normal rate, regular rhythm, systolic murmur Respiratory/Chest: crackles/rales Abdomen: soft Extremities: trace edema 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 II-XII grossly normal, disoriented Intake and Output 01/08/21 01/09/21 19:00 07:00 Intake Total 780.91 ml 414.761 ml Output Total 600 ml 500 ml Balance 180.91 ml -85.239 ml Intake Oral 240 ml IV Total 780.91 ml 174.761 ml Output Urine Total 600 ml 500 ml Laboratory Tests Test 01/08/21 18:30 01/09/21 01:00 01/09/21 04:00 01/09/21 08:15 Troponin I 18.628 ng/mL (0.000-0.056) 19.436 ng/mL (0.000-0.056) 19.913 ng/mL (0.000-0.056) Activated Partial Thromboplast Time 63 SEC (23-33) H White Blood Count 9.6 K/UL (4.8-10.8) Red Blood Count 3.36 M/UL (4.20-5.40) L Hemoglobin 10.0 G/DL (12.0-16.0) L Hematocrit 31.1 % (37.0-47.0) L Mean Corpuscular Volume 93 FL (80-99) Mean Corpuscular Hemoglobin 29.7 PG (27.0-31.0) Mean Corpuscular Hemoglobin Concent 32.1 G/DL (32.0-36.0) Red Cell Distribution Width 12.7 % (11.6-14.8) Platelet Count 135 K/UL (150-450) L Mean Platelet Volume 8.5 FL (6.5-10.1) Neutrophils (%) (Auto) 74.4 % (45.0-75.0) Lymphocytes (%) (Auto) 8.9 % (20.0-45.0) L Monocytes (%) (Auto) 15.9 % (1.0-10.0) H Eosinophils (%) (Auto) 0.1 % (0.0-3.0) Basophils (%) (Auto) 0.6 % (0.0-2.0) Sodium Level 139 MMOL/L (136-145) Potassium Level 5.0 MMOL/L (3.5-5.1) Chloride Level 105 MMOL/L (98-107) Carbon Dioxide Level 25 MMOL/L (21-32) Anion Gap 9 mmol/L (5-15) Blood Urea Nitrogen 29 mg/dL (7-18) H Creatinine 1.0 MG/DL (0.55-1.30) Estimat Glomerular Filtration Rate > 60 mL/min (>60) Test 01/09/21 13:07 Activated Partial Thromboplast Time 57 SEC (23-33) H Lucy Mccauley PA-C Jan 09, 2021 17:45
[2021-01-09 20:00] VITALS: BP 163/72
[2021-01-09] MEDS: Atorvastatin 80mg tab ORAL SCH (20:00)
[2021-01-10] VITALS: BP 130/65
[2021-01-10 04:00] VITALS: BP 116/76
[2021-01-10] MEDS: Heparin 25,000u/D5W 500ml 500 ML IV SCH ×2 (05:45→21:26)
[2021-01-10] MEDS ORDERED: Heparin 5000 units/ml inj IV SCH (05:45)
--- NOTE | 2021-01-10 07:35 | NUR ---
NURSE NOTES: Report received from MISSY Velásquez. Patient was eating breakfast (mechanical soft diet) when greeted in the room. Talkative, responds to questions appropriately. No signs of grimacing or distress noted. Patient is on 2 L nasal cannula, tolerating well. Has a dickson catheter, patent, intact, and draining light yellow urine. 2 IV sites, a L AC 22 g, patent, intact, and running Hep at 18 U/kg/hr, and a R H 22 g, patent, intact, and running 1/2 NS at 75cc/hr. HOB elevated, bed is on lowest position, locked, side rails up, call light within reach and bed side table next to bed. Will continue to monitor. Will continue plan of care.
[2021-01-10 08:00] VITALS: BP 122/55
[2021-01-10] MEDS: Aspirin EC 81mg tab ORAL SCH (08:18)
--- NOTE | 2021-01-10 09:25 | Infectious Diseases Prog Note ---
Assessment/Plan Assessment/Plan A 1. pneumonia improving, COVID19 - 2. increased LFT 3. anemia 4. AL 5. Acidosis 6. Hypoxic respiratory failure P 1. continue ceftriaxone 2. s/p 1 dose ivermectin Subjective ROS Limited/Unobtainable: Yes Constitutional: Denies: fever Allergies: Coded Allergies: No Known Allergies (Unverified , 01/06/21) Objective Last 24 Hour Vital Signs Date Time Temp Pulse Resp B/P (MAP) Pulse Ox O2 Delivery O2 Flow Rate FiO2 01/10/21 08:28 92 01/10/21 08:18 77 121/55 01/10/21 08:00 97.3 90 18 122/55 (77) 95 01/10/21 04:00 Nasal Cannula 2.0 01/10/21 04:00 96.1 70 20 116/76 (89) 99 01/10/21 04:00 83 01/10/21 00:00 83 01/10/21 00:00 64 18 130/65 (86) 99 01/10/21 00:00 Nasal Cannula 2.0 01/10/21 00:00 97.0 01/09/21 20:58 Nasal Cannula 2.0 01/09/21 20:01 69 163/72 01/09/21 20:00 97.0 89 20 163/72 (102) 97 01/09/21 20:00 89 01/09/21 18:58 99 Nasal Cannula 3.0 32 01/09/21 16:00 83 01/09/21 16:00 Nasal Cannula 2.0 01/09/21 16:00 97.0 88 19 151/72 (98) 97 01/09/21 12:00 85 01/09/21 12:00 Nasal Cannula 2.0 01/09/21 12:00 96.6 82 20 119/82 (94) 100 01/09/21 09:25 92 153/90 Height (Feet): 5 Height (Inches): 2.00 Weight (Pounds): 109 HEENT: mucous membranes moist Respiratory/Chest: lungs clear, other - O2 by nasal cannula Cardiovascular: normal rate Abdomen: soft, non tender Extremities: no edema Neurologic/Psychiatric: other - sleeping Laboratory Tests Test 01/09/21 13:07 01/09/21 20:25 01/10/21 04:35 Activated Partial Thromboplast Time 57 SEC (23-33) H 96 SEC (23-33) H 64 SEC (23-33) H Current Medications Medications (Trade) Dose Ordered Sig/Lexi Route PRN Reason Start Time Stop Time Status Last Admin Dose Admin Acetaminophen (Tylenol) 650 mg Q6H PRN ORAL Mild Pain (Pain Scale 1-3) 01/06/21 16:15 02/05/21 16:14 01/06/21 16:46 Aspirin (Ecotrin) 81 mg DAILY ORAL 01/08/21 13:45 02/22/21 13:44 01/10/21 08:18 Atorvastatin Calcium (Lipitor) 80 mg BEDTIME ORAL 01/08/21 21:00 04/08/21 20:59 01/09/21 20:00 Ceftriaxone Sodium 1 gm/ Dextrose 55 ml @ 110 mls/hr Q24H IVPB 01/06/21 10:00 01/13/21 09:59 01/09/21 09:25 Clopidogrel Bisulfate (Plavix) 75 mg DAILY ORAL 01/10/21 09:00 02/09/21 08:59 01/10/21 08:18 Heparin Sodium/ Dextrose 500 ml @ 17.799 mls/ hr ADJUST PER PROTOCOL IV 01/10/21 05:45 02/09/21 05:44 01/10/21 05:45 Lorazepam (Ativan 2mg/ml 1ml) 0.5 mg Q6H PRN IV For Anxiety 01/07/21 09:30 01/14/21 09:29 01/08/21 00:53 Metoprolol Tartrate (Lopressor) 25 mg Q12HR ORAL 01/08/21 13:45 04/08/21 13:44 01/10/21 08:18 Sodium Chloride 1,000 ml @ 75 mls/hr [id number] IV 01/06/21 09:30 02/05/21 09:29 01/10/21 06:04 Edson Davis MD Jan 10, 2021 09:25
[2021-01-10] MEDS: cefTRIAXone 1 GM in D5W 55 ML IVPB SCH (10:33)
--- NOTE | 2021-01-10 10:49 | NUR ---
NURSE NOTES: Face sheet needs to be faxed to [facility] but there is no Teaching Fellow this weekend. Reached out to Dr. Hankins and asked for [facility] fax number so I can fax it instead. Still awaiting for reply.
--- NOTE | 2021-01-10 11:38 | NUR ---
NURSE NOTES: Faxed Face Sheet to [facility]. No response from them yet.
--- NOTE | 2021-01-10 11:57 | NUR ---
NURSE NOTES: Patient is not compliant. Pulled out IV and got up on bed on her own. Will insert a new IV line. Put patient back to bed. Increased NC to 4 L because patient complains of not being able to breathe but saturation reading is 98%. Called Moo LORENZO, but no response. Awaiting for call back.
[2021-01-10 12:00] VITALS: BP 140/81
--- NOTE | 2021-01-10 12:10 | NUR ---
NURSE NOTES: Moo Emmanuel (Pulmo PA) came to check up on the patient. Reported to Lien that patient has audible wheezing. Patient remains to be on 4L nasal cannula. Saturation has been on the high 90s to 100%. Will continue to be monitored.
--- NOTE | 2021-01-10 12:39 | Pulmonology Progress Note ---
Subjective ROS Limited/Unobtainable: Yes Interval Events: None major reported per nursing Constitutional: Denies: fever HEENT: Repors: no symptoms Respiratory: Reports: shortness of breath Cardiovascular: Reports: no symptoms Gastrointestinal/Abdominal: Reports: no symptoms Genitourinary: Reports: no symptoms Allergies: Coded Allergies: No Known Allergies (Unverified , 01/06/21) Objective Last 24 Hour Vital Signs Date Time Temp Pulse Resp B/P (MAP) Pulse Ox O2 Delivery O2 Flow Rate FiO2 01/10/21 11:41 120 01/10/21 08:28 92 01/10/21 08:18 77 121/55 01/10/21 08:00 Nasal Cannula 2.0 01/10/21 08:00 97.3 90 18 122/55 (77) 95 01/10/21 04:00 Nasal Cannula 2.0 01/10/21 04:00 96.1 70 20 116/76 (89) 99 01/10/21 04:00 83 01/10/21 00:00 83 01/10/21 00:00 64 18 130/65 (86) 99 01/10/21 00:00 Nasal Cannula 2.0 01/10/21 00:00 97.0 01/09/21 20:58 Nasal Cannula 2.0 01/09/21 20:01 69 163/72 01/09/21 20:00 97.0 89 20 163/72 (102) 97 01/09/21 20:00 89 01/09/21 18:58 99 Nasal Cannula 3.0 32 01/09/21 16:00 83 01/09/21 16:00 Nasal Cannula 2.0 01/09/21 16:00 97.0 88 19 151/72 (98) 97 Intake and Output 01/09/21 01/10/21 19:00 07:00 Intake Total 1376.943 ml 1039.926 ml Output Total 1300 ml 650 ml Balance 76.943 ml 389.926 ml Intake Oral 240 ml 120 ml IV Total 1136.943 ml 919.926 ml Output Urine Total 1300 ml 650 ml General Appearance: no acute distress HEENT: atraumatic Respiratory: crackles/rales Cardiovascular: regular rhythm, tachycardia Abdomen: soft, non tender Laboratory Tests 01/09/21 13:07: Activated Partial Thromboplast Time 57H 01/09/21 20:25: Activated Partial Thromboplast Time 96H 01/10/21 04:35: Activated Partial Thromboplast Time 64H 01/10/21 11:57: Activated Partial Thromboplast Time [Pending] Current Medications Medications (Trade) Dose Ordered Sig/Lexi Route PRN Reason Start Time Stop Time Status Last Admin Dose Admin Acetaminophen (Tylenol) 650 mg Q6H PRN ORAL Mild Pain (Pain Scale 1-3) 01/06/21 16:15 02/05/21 16:14 01/06/21 16:46 Aspirin (Ecotrin) 81 mg DAILY ORAL 01/08/21 13:45 02/22/21 13:44 01/10/21 08:18 Atorvastatin Calcium (Lipitor) 80 mg BEDTIME ORAL 01/08/21 21:00 04/08/21 20:59 01/09/21 20:00 Ceftriaxone Sodium 1 gm/ Dextrose 55 ml @ 110 mls/hr Q24H IVPB 01/06/21 10:00 01/13/21 09:59 01/10/21 10:33 Clopidogrel Bisulfate (Plavix) 75 mg DAILY ORAL 01/10/21 09:00 02/09/21 08:59 01/10/21 08:18 Heparin Sodium/ Dextrose 500 ml @ 17.799 mls/ hr ADJUST PER PROTOCOL IV 01/10/21 05:45 02/09/21 05:44 01/10/21 05:45 Lorazepam (Ativan 2mg/ml 1ml) 0.5 mg Q6H PRN IV For Anxiety 01/07/21 09:30 01/14/21 09:29 01/08/21 00:53 Metoprolol Tartrate (Lopressor) 25 mg Q12HR ORAL 01/08/21 13:45 04/08/21 13:44 01/10/21 08:18 Sodium Chloride 1,000 ml @ 75 mls/hr [id number] IV 01/06/21 09:30 02/05/21 09:29 01/10/21 06:04 Assessment/Plan Assessment/Plan 1. Hypoxemic respiratory distress; improving -now off BiPAP -> now saturating well on 2L NC; continue to wean as tolerated - s/p dexamethasone (01/07-01/08) 2. COVID-19 PCR negative (01/06) - off isolation 3. Pneumonia -On broad-spectrum antibiotics per primary MD 4. Elevated BNP - s/p Lasix in the ER 5. Elevated D-dimer with tachycardia - On heparin drip for DVT prophylaxis -Venous duplex of legs negative for DVT 6. Elevated troponin - Noted plans for transfer to [facility] for cath -Transfer is approved, awaiting ICU bed at [facility] given elevated troponin The care for this patient was discussed with my supervising physician. Time spent for this case was approximately 31 minutes. Moo Emmanuel Jan 10, 2021 12:39
--- NOTE | 2021-01-10 13:01 | NUR ---
NURSE NOTES: PTT resulted back at 1157, and it is 77. Called pharmacy and asked if there will be any changes for the rate of the Heparin drip (currently at 18U/kg/hr), and the pharmacist said keep it on same rate. Ordered PTT at 0500 tomorrow 01/11/21.
--- NOTE | 2021-01-10 13:49 | General Progress Note ---
Subjective Date patient seen: Jan 10, 2021 Constitutional: Reports: weakness HEENT: Reports: no symptoms Cardiovascular: Reports: no symptoms Respiratory: Reports: SOB with excertion Gastrointestinal/Abdominal: Reports: no symptoms Allergies: Coded Allergies: No Known Allergies (Unverified , 01/06/21) Objective Last 24 Hour Vital Signs Date Time Temp Pulse Resp B/P (MAP) Pulse Ox O2 Delivery O2 Flow Rate FiO2 01/10/21 12:00 97.7 87 20 140/81 (100) 99 01/10/21 12:00 Nasal Cannula 4.0 01/10/21 12:00 97.7 87 20 140/81 (100) 99 01/10/21 11:41 120 01/10/21 08:28 92 01/10/21 08:18 77 121/55 01/10/21 08:00 Nasal Cannula 2.0 01/10/21 08:00 97.3 90 18 122/55 (77) 95 01/10/21 04:00 Nasal Cannula 2.0 01/10/21 04:00 96.1 70 20 116/76 (89) 99 01/10/21 04:00 83 01/10/21 00:00 83 01/10/21 00:00 64 18 130/65 (86) 99 01/10/21 00:00 Nasal Cannula 2.0 01/10/21 00:00 97.0 01/09/21 20:58 Nasal Cannula 2.0 01/09/21 20:01 69 163/72 01/09/21 20:00 97.0 89 20 163/72 (102) 97 01/09/21 20:00 89 01/09/21 18:58 99 Nasal Cannula 3.0 32 01/09/21 16:00 83 01/09/21 16:00 Nasal Cannula 2.0 01/09/21 16:00 97.0 88 19 151/72 (98) 97 Intake and Output 01/09/21 01/10/21 19:00 07:00 Intake Total 1376.943 ml 1039.926 ml Output Total 1300 ml 650 ml Balance 76.943 ml 389.926 ml Intake Oral 240 ml 120 ml IV Total 1136.943 ml 919.926 ml Output Urine Total 1300 ml 650 ml Laboratory Tests 01/09/21 20:25: Activated Partial Thromboplast Time 96H 01/10/21 04:35: Activated Partial Thromboplast Time 64H 01/10/21 11:57: Activated Partial Thromboplast Time 77H Height (Feet): 5 Height (Inches): 2.00 Weight (Pounds): 109 General Appearance: alert EENT: PERRL/EOMI Neck: supple Cardiovascular: regular rhythm Respiratory/Chest: normal breath sounds Abdomen: non tender, soft Extremities: non-tender Assessment/Plan Status: stable Assessment/Plan: nstemi on medical tx, waiting for cardiac cath at [facility] or [facility] covid 19 negative ac copd exacerabation chf htn cardiac arrhtemia agitation cont iv abx iv decadrone on heparin drip add ativan fu labs dw pulmonary cardiology on the case left message to the son yesterday and today does not p c up the phone and voice message is full Vinod Bowers MD Jan 10, 2021 13:49
--- NOTE | 2021-01-10 14:20 | NUR ---
NURSE NOTES: Patient was doing physical therapy and was reported to be in distress and saturation was low per physical therapist. Patient is now back on BiPap with settings of 12/5 and 35% FiO2. Saturating on the high 90s now. Will continue to monitor patient.
[2021-01-10 16:00] VITALS: BP 127/72
--- NOTE | 2021-01-10 16:38 | NUR ---
NURSE NOTES: Patient removed BiPap. Tried to put it on but patient refused. Put her back on NC 4L. Patient is saturating on high 90s. Will continue to monitor patient.
--- NOTE | 2021-01-10 16:57 | NUR ---
PT Note PT eval completed, treatment initiated. Patient was cleared by RN for PT. Pt was cooperative and able to follow instructions. Pt's on O2 at 4l/min per NC, O2 saturation at rest was 98-100%. Pt was able to perform bed mobility, transfers and gait x 2 small steps. Noted O2 sat to decrease to low 80's upon sitting at the EOB after taking 2 steps with audible wheezing. Patient was immediately assisted to a semi Reynolds's position. Patient continued to have wheezing with O2 sats fluctuating 85-94%. Nursing staff notified; RT was called and took over care. Patient can benefit from PT services to increase her muscle strength to improve her functional mobility. Addendum: 01/10/21 at 1659 by AL MCKEON PT Amended: Links added.
--- NOTE | 2021-01-10 19:35 | NUR ---
NURSE HAND-OFF REPORT: Important Events on Shift: stable Patient Status: Diet: Pending Orders: Pending Results/Labs: Pending MD notification: Latest Vital Signs: Temperature 98.3 , Pulse 76 , B/P 127 /72 , Respiratory Rate 21 , O2 SAT 95 , Bi-pap, O2 Flow Rate 4.0 . Vital Sign Comment: EKG Rhythm: SR w BBB Rhythm change?: N MD Notified?: -Dr. Cr GUZMAN Response: Latest Joiner Fall Score: 45 Fall Risk: High Risk Safety Measures: Call light Within Reach, Bed Alarm Zone 1, Side Rails Side Rails x3, Bed position Low and Locked. Fall Precautions: Yellow Socks Yellow Gown Door Sign Patient Fall Education Report given to MISSY Mcgrath.
--- NOTE | 2021-01-10 19:40 | NUR ---
NURSE NOTES: Received patient and report from Jeremias LOUIS. Patient is resting in bed comfortably. on NC 4L with no SOB. o2 sat 98-100%.SR w/BBB on monitor. vss. Afebrile. Denies chest pain.Transfer pending now. on Heparin drip at 18 unit/kg/hr. no s/s of bleeding.bed position in low and locked. call light in reach. will continue plan of care.
[2021-01-10 20:00] VITALS: BP 161/77
--- NOTE | 2021-01-10 21:08 | Cardiology Progress Note ---
Assessment/Plan Status: stable Status Narrative 89 yo F admitted for chest pain and SOB. NSTEMI with troponin elevation, in acute HF with fluid overload and elevated BNP. Echo EF 40-45% with severe . Transfer pending Assessment/Plan 1. NSTEMI with troponin elevation 19 x3, and chest pain now chest pain free heparin gtt plavix and asa 2. HFrEF, acute on chronic systolic on diastolic HF with elevated BNP 5442 3. Aortic valve stenosis - severe 4. HTN 5. Frailty and advanced age 6. Dementia 7. COPD Pt being transferred for higher level of care. Pt is unable to consent herself and calls have been made today and yesterday to her son but he has been unreachable. Will follow for possible coronary intervention vs medical therapy, at the request of Dr. Bowers and Dr. Hankins. Subjective ROS Limited/Unobtainable: No Subjective Feeling ok today, denies chest pain. Breathing on room air, sitting propped up in bed. Objective Last 24 Hour Vital Signs Date Time Temp Pulse Resp B/P (MAP) Pulse Ox O2 Delivery O2 Flow Rate FiO2 01/10/21 18:58 100 Nasal Cannula 4.0 36 01/10/21 16:00 Nasal Cannula 4.0 01/10/21 16:00 98.3 76 21 127/72 (90) 95 01/10/21 15:41 72 01/10/21 14:30 110 23 98 60 01/10/21 12:00 97.7 87 20 140/81 (100) 99 01/10/21 12:00 Nasal Cannula 4.0 01/10/21 12:00 97.7 87 20 140/81 (100) 99 01/10/21 11:41 120 01/10/21 09:20 98 Nasal Cannula 2.0 28 01/10/21 08:28 92 01/10/21 08:18 77 121/55 01/10/21 08:00 Nasal Cannula 2.0 01/10/21 08:00 97.3 90 18 122/55 (77) 95 01/10/21 04:00 Nasal Cannula 2.0 01/10/21 04:00 96.1 70 20 116/76 (89) 99 01/10/21 04:00 83 01/10/21 00:00 83 01/10/21 00:00 64 18 130/65 (86) 99 01/10/21 00:00 Nasal Cannula 2.0 01/10/21 00:00 97.0 General Appearance: no apparent distress EENT: PERRL/EOMI Neck: supple, no JVD Rhythm: NSR Cardiovascular: normal rate, regular rhythm, systolic murmur Respiratory/Chest: crackles/rales Abdomen: soft Extremities: trace edema 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
[2021-01-10] MEDS: Atorvastatin 80mg tab ORAL SCH (21:52)
[2021-01-11] VITALS: BP 141/75
--- NOTE | 2021-01-11 00:03 | NUR ---
NURSE NOTES: [facility] nurse called and asked Facesheet and H&P. Faxed it to Transfer unit ([phone])
[2021-01-11] MEDS: LORazepam Inj 2mg/ml 1ml IV PRN ×2 (02:05→09:15)
--- NOTE | 2021-01-11 02:05 | NUR ---
NURSE NOTES: Patient trying to get out of bed. agitated. Denies chest pain. BP 148/79 HR 121. O2 sat 100% with NC 4L.Ativan 0.5mg IV given. will continue to monitor.
[2021-01-11 04:00] VITALS: BP 143/75
--- NOTE | 2021-01-11 04:00 | NUR ---
NURSE NOTES: Patient asleep , but easily awaken to voice. vss. Afebrile. Denies chest pain. No SOB with NC 4L.will continue to monitor closely.
[2021-01-11 06:09] LABS: ALBUMIN 2.8 G/DL (3.4-5.0); ALBUMIN/GLOBULIN RATIO 0.7 (1.0-2.7); BILIRUBIN,TOTAL 0.5 MG/DL (0.2-1.0); CALCIUM 9.3 MG/DL (8.5-10.1); CREATININE 1.1 MG/DL (0.55-1.30); POTASSIUM 4.5 MMOL/L (3.5-5.1)
[2021-01-11] MEDS ORDERED: Heparin 5000 units/ml inj IV ONE (06:30)
[2021-01-11] MEDS: Heparin 25,000u/D5W 500ml 500 ML IV SCH ×2 (06:53→16:18)
--- NOTE | 2021-01-11 07:20 | NUR ---
NURSE HAND-OFF REPORT: Important Events on Shift: Patient Status: stable Diet:regular Pending Orders: n Pending Results/Labs:n Pending MD notification:n Latest Vital Signs: Temperature 97.7 , Pulse 93 , B/P 143 /75 , Respiratory Rate 22 , O2 SAT 100 , Bi-pap, O2 Flow Rate 4.0 . Vital Sign Comment: stable EKG Rhythm: SR w BBB Rhythm change?: N MD Notified?: -Dr. Cr GUZMAN Response: Latest Joiner Fall Score: 45 Fall Risk: High Risk Safety Measures: Call light Within Reach, Bed Alarm Zone 1, Side Rails Side Rails x3, Bed position Low and Locked. Fall Precautions: Yellow Socks Yellow Gown Door Sign Patient Fall Education Report given to MISSY Mcdowell.
--- NOTE | 2021-01-11 07:25 | NUR ---
NURSE NOTES: Report received from MISSY Mcgrath. Patient is on bed, currently eating breakfast with the MANUAL CONTROL AUGER PRESS OPERATOR. Shows signs of discomfort and previous nurse reported that patient complains of stomach pain. Will report to the doctor and ask for prescription. On nasal cannula 4 L, saturating 100%. On a dickson catheter, patent, intact, and draining almost to clear yellow urine. HOB elevated, bed is on lowest position, side rails up, locked. Heparin drip is currently at 20U/kg/hr. Will closely monitor. Will continue plan of care.
[2021-01-11 08:00] VITALS: BP 116/58
--- NOTE | 2021-01-11 08:40 | NUR ---
NURSE NOTES: Patient was trying to get out of bed. Put her back to bed. Moo Emmanuel (Pulmo PA) checked on the patient because patient was in distress and was experiencing difficulty breathing, but saturation is on high 90s-100%. Ordered ABG stat awaiting for results. Will let pulmo consult know.
[2021-01-11] MEDS ORDERED: Losartan 25mg tab ORAL SCH (09:00)
--- NOTE | 2021-01-11 09:02 | General Progress Note ---
Subjective Constitutional: Denies: no symptoms, chills, diaphoresis, fever, malaise, weakness, other HEENT: Denies: no symptoms, eye pain, blurred vision, tearing, double vision, ear pain, ear discharge, nose pain, nose congestion, throat pain, throat swelling, mouth pain, mouth swelling, other Cardiovascular: Denies: no symptoms, chest pain, edema, irregular heart rate, lightheadedness, palpitations, syncope, other Respiratory: Denies: no symptoms, cough, orthopnea, shortness of breath, SOB with excertion, SOB at rest, sputum, stridor, wheezing, other Gastrointestinal/Abdominal: Denies: no symptoms, abdomen distended, abdominal pain, black stools, tarry stools, blood in stool, constipated, diarrhea, difficulty swallowing, nausea, poor appetite, poor fluid intake, rectal bleeding, vomiting, other Endocrine: Denies: no symptoms, excessive sweating, flushing, intolerance to cold, intolerance to heat, increased hunger, increased thirst, increased urine, unexplained weight gain, unexplained weight loss, other Allergies: Coded Allergies: No Known Allergies (Unverified , 01/06/21) Subjective 01/11 labs reviewed, remains confused, meds noted, do rn, on hep gtt Objective Last 24 Hour Vital Signs Date Time Temp Pulse Resp B/P (MAP) Pulse Ox O2 Delivery O2 Flow Rate FiO2 01/11/21 04:11 Nasal Cannula 4.0 01/11/21 04:00 97.7 100 22 143/75 (97) 100 01/11/21 04:00 93 01/11/21 02:35 112 20 146/87 100 01/11/21 02:05 112 20 146/87 100 01/11/21 00:00 Nasal Cannula 4.0 01/11/21 00:00 76 01/11/21 00:00 97.3 77 22 141/75 (97) 100 01/10/21 21:27 92 161/77 01/10/21 20:00 Nasal Cannula 4.0 01/10/21 20:00 96.8 92 19 161/77 (105) 100 01/10/21 20:00 88 01/10/21 18:58 100 Nasal Cannula 4.0 36 01/10/21 16:00 Nasal Cannula 4.0 01/10/21 16:00 98.3 76 21 127/72 (90) 95 01/10/21 15:41 72 01/10/21 14:30 110 23 98 60 01/10/21 12:00 97.7 87 20 140/81 (100) 99 01/10/21 12:00 Nasal Cannula 4.0 01/10/21 12:00 97.7 87 20 140/81 (100) 99 01/10/21 11:41 120 01/10/21 09:20 98 Nasal Cannula 2.0 28 Intake and Output 01/10/21 01/11/21 19:00 07:00 Intake Total 1435 ml 700 ml Output Total 700 ml Balance 1435 ml 0 ml Intake Oral 480 ml 100 ml IV Total 955 ml 600 ml Output Urine Total 700 ml Laboratory Tests 01/10/21 11:57: Activated Partial Thromboplast Time 77H 01/11/21 05:13: Activated Partial Thromboplast Time 58H, Sodium Level 142, Potassium Level 4.5, Chloride Level 107, Carbon Dioxide Level 24, Anion Gap 11, Blood Urea Nitrogen 24H, Creatinine 1.1, Estimat Glomerular Filtration Rate 56.6, Glucose Level 153H , Calcium Level 9.3, Total Bilirubin 0.5, Aspartate Amino Transf (AST/SGOT) 51H, Alanine Aminotransferase (ALT/SGPT) 67, Alkaline Phosphatase 92, Troponin I 11.413H, Pro-B-Type Natriuretic Peptide 43887K, Total Protein 6.9, Albumin 2.8L, Globulin 4.1, Albumin/Globulin Ratio 0.7L Height (Feet): 5 Height (Inches): 2.00 Weight (Pounds): 109 Objective GeN: Nad HEENT: PERRL/EOMI Neck: supple Cardiovascular: regular rhythm Respiratory/Chest: normal breath sounds Abdomen: non tender, soft Extremities: non-tender Assessment/Plan Status: stable Status Narrative Assessmen/Recs nstemi on medical tx, waiting for cardiac cath at [facility], continue hep gtt covid 19 negative ac copd exacerabation chf htn cardiac arrhtemia agitation cont iv abx iv decadrone on heparin drip add ativan fu labs dw pulmonary cardiology on the case Elliot Mayberry MD Jan 11, 2021 09:02
--- NOTE | 2021-01-11 09:20 | NUR ---
NURSE NOTES: Administered Ativan (0.5) to patient. Tried to waste it on the pyxis with the charge nurse but pyxis does not accept the amount to be wasted. 2mg is the dose in the vial and supposed to be wasting 1.50 mg. Called the pharmacy about this incident and was told to just chart about it. Pharmacy and charge nurse is aware about it.
[2021-01-11] MEDS: Pantoprazole Inj IVP SCH (09:28)
[2021-01-11] MEDS: Aspirin EC 81mg tab ORAL SCH (09:29)
[2021-01-11] MEDS: cefTRIAXone 1 GM in D5W 55 ML IVPB SCH (09:31)
--- NOTE | 2021-01-11 09:43 | Pulmonology Progress Note ---
Subjective ROS Limited/Unobtainable: No Interval Events: None major reported per nursing Constitutional: Denies: fever HEENT: Repors: no symptoms Respiratory: Reports: shortness of breath Cardiovascular: Reports: no symptoms Gastrointestinal/Abdominal: Reports: no symptoms Genitourinary: Reports: no symptoms Allergies: Coded Allergies: No Known Allergies (Unverified , 01/06/21) Objective Last 24 Hour Vital Signs Date Time Temp Pulse Resp B/P (MAP) Pulse Ox O2 Delivery O2 Flow Rate FiO2 01/11/21 09:29 121 53/114 01/11/21 09:27 121/53 01/11/21 09:15 120 26 127/78 100 01/11/21 04:11 Nasal Cannula 4.0 01/11/21 04:00 97.7 100 22 143/75 (97) 100 01/11/21 04:00 93 01/11/21 02:35 112 20 146/87 100 01/11/21 02:05 112 20 146/87 100 01/11/21 00:00 Nasal Cannula 4.0 01/11/21 00:00 76 01/11/21 00:00 97.3 77 22 141/75 (97) 100 01/10/21 21:27 92 161/77 01/10/21 20:00 Nasal Cannula 4.0 01/10/21 20:00 96.8 92 19 161/77 (105) 100 01/10/21 20:00 88 01/10/21 18:58 100 Nasal Cannula 4.0 36 01/10/21 16:00 Nasal Cannula 4.0 01/10/21 16:00 98.3 76 21 127/72 (90) 95 01/10/21 15:41 72 01/10/21 14:30 110 23 98 60 01/10/21 12:00 97.7 87 20 140/81 (100) 99 01/10/21 12:00 Nasal Cannula 4.0 01/10/21 12:00 97.7 87 20 140/81 (100) 99 01/10/21 11:41 120 Intake and Output 01/10/21 01/11/21 19:00 07:00 Intake Total 1435 ml 700 ml Output Total 700 ml Balance 1435 ml 0 ml Intake Oral 480 ml 100 ml IV Total 955 ml 600 ml Output Urine Total 700 ml General Appearance: no acute distress HEENT: atraumatic Respiratory: accessory muscle use, crackles/rales Cardiovascular: regular rhythm, tachycardia Abdomen: soft, non tender Laboratory Tests 01/10/21 11:57: Activated Partial Thromboplast Time 77H 01/11/21 05:13: Activated Partial Thromboplast Time 58H, Sodium Level 142, Potassium Level 4.5, Chloride Level 107, Carbon Dioxide Level 24, Anion Gap 11, Blood Urea Nitrogen 24H, Creatinine 1.1, Estimat Glomerular Filtration Rate 56.6, Glucose Level 153H , Calcium Level 9.3, Total Bilirubin 0.5, Aspartate Amino Transf (AST/SGOT) 51H, Alanine Aminotransferase (ALT/SGPT) 67, Alkaline Phosphatase 92, Troponin I 11.413H, Pro-B-Type Natriuretic Peptide 50430G, Total Protein 6.9, Albumin 2.8L, Globulin 4.1, Albumin/Globulin Ratio 0.7L Current Medications Medications (Trade) Dose Ordered Sig/Lexi Route PRN Reason Start Time Stop Time Status Last Admin Dose Admin Acetaminophen (Tylenol) 650 mg Q6H PRN ORAL Mild Pain (Pain Scale 1-3) 01/06/21 16:15 02/05/21 16:14 01/06/21 16:46 Aspirin (Ecotrin) 81 mg DAILY ORAL 01/08/21 13:45 02/22/21 13:44 01/11/21 09:29 Atorvastatin Calcium (Lipitor) 20 mg BEDTIME ORAL 01/11/21 21:00 04/11/21 20:59 Atorvastatin Calcium (Lipitor) 80 mg BEDTIME ORAL 01/08/21 21:00 04/08/21 20:59 01/10/21 21:52 Ceftriaxone Sodium 1 gm/ Dextrose 55 ml @ 110 mls/hr Q24H IVPB 01/06/21 10:00 01/13/21 09:59 01/11/21 09:31 Clopidogrel Bisulfate (Plavix) 75 mg DAILY ORAL 01/10/21 09:00 02/09/21 08:59 01/11/21 09:28 Furosemide (Lasix) 40 mg DAILY IV 01/11/21 09:00 02/10/21 08:59 01/11/21 09:28 Heparin Sodium/ Dextrose 500 ml @ 19.777 mls/ hr ADJUST PER PROTOCOL IV 01/10/21 05:45 02/09/21 05:44 01/11/21 06:53 Lorazepam (Ativan 2mg/ml 1ml) 0.5 mg Q6H PRN IV For Anxiety 01/07/21 09:30 01/14/21 09:29 01/11/21 09:15 Losartan Potassium (Cozaar) 25 mg EVERY 12 HOURS ORAL 01/11/21 09:00 02/10/21 08:59 01/11/21 09:27 Metoprolol Tartrate (Lopressor) 25 mg Q12HR ORAL 01/08/21 13:45 04/08/21 13:44 01/11/21 09:29 Pantoprazole (Protonix) 20 mg DAILY IVP 01/11/21 09:00 02/10/21 08:59 01/11/21 09:28 Sodium Chloride 1,000 ml @ 75 mls/hr [id number] IV 01/06/21 09:30 02/05/21 09:29 01/11/21 09:32 Assessment/Plan Assessment/Plan 1. Hypoxemic respiratory distress; improving -now off BiPAP -> now saturating well on 4L NC; continue to wean as tolerated - s/p dexamethasone (01/07-01/08) - Increased accessory muscle use this AM -> check ABG 2. COVID-19 PCR negative (01/06) - off isolation 3. Pneumonia -On broad-spectrum antibiotics per primary MD 4. Elevated BNP - s/p Lasix in the ER - cardio following 5. Elevated D-dimer with tachycardia - On heparin drip for DVT prophylaxis -Venous duplex of legs negative for DVT 6. Elevated troponin - Noted plans for transfer to [facility] for cath -Transfer is approved, awaiting ICU bed at [facility] given elevated troponin The care for this patient was discussed with my supervising physician. Time spent for this case was approximately 31 minutes. Moo Emmanuel Jan 11, 2021 09:43
[2021-01-11 10:27] LABS: BASOPHILS % (AUTO) 2.5 % (0.0-2.0); EOSINOPHILS % (AUTO) 0.1 % (0.0-3.0); HEMATOCRIT 29.6 % (37.0-47.0); HEMOGLOBIN 9.2 G/DL (12.0-16.0); LYMPHOCYTES % (AUTO) 4.6 % (20.0-45.0); MEAN CORPUSCULAR VOLUME 95 FL (80-99); MONOCYTES % (AUTO) 12.3 % (1.0-10.0); NEUTROPHILS % (AUTO) 80.5 % (45.0-75.0); PLATELET COUNT 191 K/UL (150-450); RED BLOOD COUNT 3.11 M/UL (4.20-5.40); RED CELL DISTRIBUTION WIDTH 12.8 % (11.6-14.8); WHITE BLOOD COUNT 7.3 K/UL (4.8-10.8)
--- NOTE | 2021-01-11 10:44 | Diagnostic Imaging Report ---
EXAM: XR Chest, 1 View CLINICAL HISTORY: Myocardial infarction TECHNIQUE: Frontal view of the chest. COMPARISON: Chest x-rays dated 2 12/06/20 FINDINGS: Lungs: Perihilar pulmonary edema and pulmonary vascular congestion. Subsegmental atelectasis versus infiltrates in bilateral lung bases. Pleural space: Small bilateral pleural effusions. Heart: Cardiomegaly. Mediastinum: Unremarkable. Bones/joints: Multilevel degenerative disc space loss and endplate osteophytes throughout the visualized spine. Vasculature: Atherosclerotic calcifications within the aortic arch. Tubes, lines and devices: Telemetry leads overlie the thorax. IMPRESSION: 1. Findings suggesting CHF, worsened compared to the prior chest x-ray. Cardiomegaly with perihilar pulmonary edema, pulmonary vascular congestion, small bilateral pleural effusions. 2. Subsegmental atelectasis versus infiltrates in bilateral lung bases.
--- NOTE | 2021-01-11 11:03 | NUR ---
NURSE NOTES: Patient was in distress and went on Afib at 0847. Texted Garrick (Cardio PA) and let her know. Awaiting for reply for future orders.
--- NOTE | 2021-01-11 11:17 | NUR ---
NURSE NOTES: Called Moo Emmanuel for the results of ABG. No further orders from the consult and Doctor.
[2021-01-11 12:00] VITALS: BP 85/33
--- NOTE | 2021-01-11 12:55 | NUR ---
NURSE NOTES: Lucy Mccauley (cardio PA) came by and checked up on the patient. Reported that patient has hypotension (85/33) and gave 250 sodium chloride bolus and blood pressure went up to 107/49. PA ordered to discontinue Cozaar. No other further orders at the moment.
--- NOTE | 2021-01-11 15:01 | NUR ---
NURSE NOTES: Patient was supposed to have PT today but then patient is hypotensive and at risk for fall.
--- NOTE | 2021-01-11 15:29 | NUR ---
PT Note Attempted to see patient for treatment but was advised by RN to hold off on PT today due to patient having hypotension.
--- NOTE | 2021-01-11 15:56 | NUR ---
NURSE NOTES: Pharmacy called and PTT resulted back. Was told to put heparin on hold for 30 minutes, and resume heparin after. Start rate of heparin is going to be 17 units/kg/hr. Will order PTT 6 hours from time resumed heparin.
[2021-01-11 16:00] VITALS: BP 101/62
--- NOTE | 2021-01-11 19:22 | NUR ---
NURSE HAND-OFF REPORT: Important Events on Shift: stable Patient Status: Diet: Pending Orders: Pending Results/Labs: Pending MD notification: Latest Vital Signs: Temperature 97.7 , Pulse 82 , B/P 101 /62 , Respiratory Rate 23 , O2 SAT 99 , Bi-pap, O2 Flow Rate 4.0 . Vital Sign Comment: EKG Rhythm: ST w BBB Rhythm change?: N MD Notified?: -Dr. rC GUZMAN Response: Latest Joiner Fall Score: 45 Fall Risk: High Risk Safety Measures: Call light Within Reach, Bed Alarm Zone 1, Side Rails Side Rails x3, Bed position Low and Locked. Fall Precautions: Yellow Socks Yellow Gown Door Sign Patient Fall Education Report given to MISSY Perez.
--- NOTE | 2021-01-11 19:23 | NUR ---
NURSE NOTES: Report received from MISSY Mcdowell. Upon assessment pt appears lethargic, SOB saturating 96%. Audible wheezing sounds auscultated on bilateral lower lobes. 5-lead EKG shows SR at 80 BPM. Vitals WNL. RLQ sounds auscultated. Right IV's patent running 1/2 NS at 75 and Heparin Drip at 17units. Wu draining well to gravity. Bed kept in lowest and locked position. Side rails up x3. Call light within reach. Will monitor.
[2021-01-11 20:00] VITALS: BP 109/70
[2021-01-11] MEDS: Atorvastatin 80mg tab ORAL SCH (21:00)
[2021-01-11] MEDS ORDERED: Atorvastatin 20mg tab ORAL SCH (21:00)
--- NOTE | 2021-01-11 21:00 | NUR ---
NURSE NOTES: Pt unable to intake medications. High risk for aspirations. Appears very drowsy, lethargic, and irritable. Will monitor.
--- NOTE | 2021-01-11 22:34 | Cardiology Progress Note ---
Assessment/Plan Status: not improved Status Narrative 89 yo F admitted for chest pain and SOB. NSTEMI with troponin elevation, in acute HF with fluid overload and elevated BNP. Echo EF 40-45% with severe . NSVT today. Transfer pending Assessment/Plan 1. NSTEMI with troponin elevation 19 x3, and chest pain now chest pain free heparin gtt plavix and asa 2. HFrEF, acute on chronic systolic on diastolic HF with elevated BNP Diuresis with IV Lasix 3. Aortic valve stenosis - severe 4. HTN 5. Frailty and advanced age, dementia 6. Dyspnea and oxygen dependence 7. COPD 8. NSVT Pt being transferred for higher level of care. NSVT today, now back in SR. Will follow for possible coronary intervention vs medical therapy, at the request of Dr. Bowers and Dr. Hankins. Subjective ROS Limited/Unobtainable: No Subjective O2 NC, resting comfortably. Objective Last 24 Hour Vital Signs Date Time Temp Pulse Resp B/P (MAP) Pulse Ox O2 Delivery O2 Flow Rate FiO2 01/11/21 21:00 80 109/70 01/11/21 20:00 80 01/11/21 20:00 98.0 80 23 109/70 (83) 99 01/11/21 20:00 Nasal Cannula 4.0 01/11/21 19:30 97 Nasal Cannula 3.0 32 01/11/21 19:30 71 19 97 Nasal Cannula 3.0 32 01/11/21 16:19 82 01/11/21 16:00 Nasal Cannula 4.0 01/11/21 16:00 97.7 78 23 101/62 (75) 99 01/11/21 12:59 80 01/11/21 12:00 97.3 78 24 85/33 (50) 99 01/11/21 12:00 Nasal Cannula 4.0 01/11/21 09:45 78 24 107/49 99 01/11/21 09:29 121 53/114 01/11/21 09:27 121/53 01/11/21 09:15 120 26 127/78 100 01/11/21 08:00 Nasal Cannula 4.0 01/11/21 08:00 97.7 110 26 116/58 (77) 99 01/11/21 07:43 107 01/11/21 04:11 Nasal Cannula 4.0 01/11/21 04:00 97.7 100 22 143/75 (97) 100 01/11/21 04:00 93 01/11/21 02:35 112 20 146/87 100 01/11/21 02:05 112 20 146/87 100 01/11/21 00:00 Nasal Cannula 4.0 01/11/21 00:00 76 01/11/21 00:00 97.3 77 22 141/75 (97) 100 General Appearance: no apparent distress EENT: PERRL/EOMI Neck: no JVD Rhythm: NSR Cardiovascular: regular rhythm, systolic murmur Respiratory/Chest: crackles/rales Abdomen: soft Extremities: trace edema Intake and Output 01/10/21 01/11/21 19:00 07:00 Intake Total 1435 ml 700 ml Output Total 700 ml Balance 1435 ml 0 ml Intake Oral 480 ml 100 ml IV Total 955 ml 600 ml Output Urine Total 700 ml Laboratory Tests Test 01/11/21 05:13 01/11/21 09:35 01/11/21 10:00 01/11/21 11:05 Activated Partial Thromboplast Time 58 SEC (23-33) H Sodium Level 142 MMOL/L (136-145) Potassium Level 4.5 MMOL/L (3.5-5.1) Chloride Level 107 MMOL/L (98-107) Carbon Dioxide Level 24 MMOL/L (21-32) Anion Gap 11 mmol/L (5-15) Blood Urea Nitrogen 24 mg/dL (7-18) H Creatinine 1.1 MG/DL (0.55-1.30) Estimat Glomerular Filtration Rate 56.6 mL/min (>60) Glucose Level 153 MG/DL (74-106) H Calcium Level 9.3 MG/DL (8.5-10.1) Total Bilirubin 0.5 MG/DL (0.2-1.0) Aspartate Amino Transf (AST/SGOT) 51 U/L (15-37) H Alanine Aminotransferase (ALT/SGPT) 67 U/L (12-78) Alkaline Phosphatase 92 U/L (46-116) Troponin I 11.413 ng/mL (0.000-0.056) Pro-B-Type Natriuretic Peptide 67009 pg/mL (0-125) H Total Protein 6.9 G/DL (6.4-8.2) Albumin 2.8 G/DL (3.4-5.0) L Globulin 4.1 g/dL Albumin/Globulin Ratio 0.7 (1.0-2.7) L Arterial Blood pH 7.166 (7.350-7.450) Arterial Blood Partial Pressure CO2 51.0 mmHg (35.0-45.0) H Arterial Blood Partial Pressure O2 133.5 mmHg (75.0-100.0) H Arterial Blood HCO3 18.0 mmol/L (22.0-26.0) L Arterial Blood Oxygen Saturation 97.8 % (95-100) Arterial Blood Base Excess -10.3 (-2-2) *L Mo Test Positive White Blood Count 7.3 K/UL (4.8-10.8) Red Blood Count 3.11 M/UL (4.20-5.40) L Hemoglobin 9.2 G/DL (12.0-16.0) L Hematocrit 29.6 % (37.0-47.0) L Mean Corpuscular Volume 95 FL (80-99) Mean Corpuscular Hemoglobin 29.5 PG (27.0-31.0) Mean Corpuscular Hemoglobin Concent 31.0 G/DL (32.0-36.0) L Red Cell Distribution Width 12.8 % (11.6-14.8) Platelet Count 191 K/UL (150-450) Mean Platelet Volume 7.5 FL (6.5-10.1) Neutrophils (%) (Auto) 80.5 % (45.0-75.0) H Lymphocytes (%) (Auto) 4.6 % (20.0-45.0) L Monocytes (%) (Auto) 12.3 % (1.0-10.0) H Eosinophils (%) (Auto) 0.1 % (0.0-3.0) Basophils (%) (Auto) 2.5 % (0.0-2.0) H D-Dimer 4.24 mg/L FEU (0.00-0.49) H Test 01/11/21 14:55 01/11/21 21:35 Activated Partial Thromboplast Time 118 SEC (23-33) H 92 SEC (23-33) H Lucy Mccauley PA-C Jan 11, 2021 22:34
--- NOTE | 2021-01-11 23:21 | NUR ---
NURSE NOTES: Shake Sawyer Sindi called from [facility] to follow up; still pending placement/bed at [facility]. Says she will notify Case [facility]ng[facility] upon availability. Pt saturating 100%. Will monitor.
[2021-01-12] VITALS: BP 101/57
--- NOTE | 2021-01-12 | NUR ---
NURSE NOTES: Pt appears restless, attempting to remove leads and oxygen. Large BM noted. Bed bath given. Pt continues to appear irritable despite all needs met. Administered PRN ativan Will monitor.
[2021-01-12] MEDS: LORazepam Inj 2mg/ml 1ml IV PRN ×2 (00:08→08:18)
[2021-01-12] MEDS: Heparin 25,000u/D5W 500ml 500 ML IV SCH (02:00)
[2021-01-12 04:00] VITALS: BP 130/80
--- NOTE | 2021-01-12 06:23 | Hematology/Onc Progress Note ---
Assessment/Plan Assessment/Plan coaulopathy due to heparin gtt that has been started for nstemi anemia due to chronic disease, multifactorial nstemi on medical tx, waiting for cardiac cath at [facility] or [facility], continue hep gtt covid 19 negative ac copd exacerabation chf htn cardiac arrhtemia agitation cont iv abx iv decadrone on heparin drip add ativan fu labs dw pulmonary cardiology on the case Subjective HEENT: Denies: no symptoms, eye pain, blurred vision, tearing, double vision, ear pain, ear discharge, nose pain, nose congestion, throat pain, throat swelling, mouth pain, mouth swelling, other Cardiovascular: Denies: no symptoms, chest pain, edema, irregular heart rate, lightheadedness, palpitations, syncope, other Gastrointestinal/Abdominal: Denies: no symptoms, abdomen distended, abdominal pain, black stools, tarry stools, blood in stool, constipated, diarrhea, difficulty swallowing, nausea, poor appetite, poor fluid intake, rectal bleeding, vomiting, other Genitourinary: Denies: no symptoms, burning, discharge, frequency, flank pain, hematuria, incontinence, pain, urgency, other Neurologic/Psychiatric: Denies: no symptoms, anxiety, depressed, emotional problems, headache, numbness, paresthesia, pre-existing deficit, seizure, tingling, tremors, weakness, other Endocrine: Denies: no symptoms, excessive sweating, flushing, intolerance to cold, intolerance to heat, increased hunger, increased thirst, increased urine, unexplained weight gain, unexplained weight loss, other Allergies: Coded Allergies: No Known Allergies (Unverified , 01/06/21) Subjective 01/11 labs reviewed, remains confused, meds noted, do rn, on hep gtt 01/12 pending placement at [facility], holding hep gtt as ptt 91 Objective Objective Current Medications Medications (Trade) Dose Ordered Sig/Lexi Route PRN Reason Start Time Stop Time Status Last Admin Dose Admin Acetaminophen (Tylenol) 650 mg Q6H PRN ORAL Mild Pain (Pain Scale 1-3) 01/06/21 16:15 02/05/21 16:14 01/06/21 16:46 Aspirin (Ecotrin) 81 mg DAILY ORAL 01/08/21 13:45 02/22/21 13:44 01/11/21 09:29 Atorvastatin Calcium (Lipitor) 80 mg BEDTIME ORAL 01/08/21 21:00 04/08/21 20:59 01/10/21 21:52 Ceftriaxone Sodium 1 gm/ Dextrose 55 ml @ 110 mls/hr Q24H IVPB 01/06/21 10:00 01/13/21 09:59 01/11/21 09:31 Clopidogrel Bisulfate (Plavix) 75 mg DAILY ORAL 01/10/21 09:00 02/09/21 08:59 01/11/21 09:28 Furosemide (Lasix) 40 mg DAILY IV 01/11/21 09:00 02/10/21 08:59 01/11/21 09:28 Heparin Sodium/ Dextrose 500 ml @ 16.81 mls/ hr ADJUST PER PROTOCOL IV 01/11/21 16:15 02/10/21 16:14 01/12/21 02:00 Lorazepam (Ativan 2mg/ml 1ml) 0.5 mg Q6H PRN IV For Anxiety 01/07/21 09:30 01/14/21 09:29 01/12/21 00:08 Metoprolol Tartrate (Lopressor) 25 mg Q12HR ORAL 01/08/21 13:45 04/08/21 13:44 01/11/21 09:29 Pantoprazole (Protonix) 20 mg DAILY IVP 01/11/21 09:00 02/10/21 08:59 01/11/21 09:28 Sodium Chloride 1,000 ml @ 75 mls/hr [id number] IV 01/06/21 09:30 02/05/21 09:29 01/11/21 22:59 Last 24 Hour Vital Signs Date Time Temp Pulse Resp B/P (MAP) Pulse Ox O2 Delivery O2 Flow Rate FiO2 01/12/21 04:00 71 01/12/21 04:00 Nasal Cannula 4.0 01/12/21 04:00 97.7 70 23 130/80 (97) 99 01/12/21 01:00 78 25 110/65 100 01/12/21 00:08 115 25 102/57 100 01/12/21 00:00 97.7 75 23 101/57 (72) 97 01/12/21 00:00 Nasal Cannula 4.0 01/12/21 00:00 69 01/11/21 21:00 80 109/70 01/11/21 20:00 80 01/11/21 20:00 98.0 80 23 109/70 (83) 99 01/11/21 20:00 Nasal Cannula 4.0 01/11/21 19:30 97 Nasal Cannula 3.0 32 01/11/21 19:30 71 19 97 Nasal Cannula 3.0 32 01/11/21 16:19 82 01/11/21 16:00 Nasal Cannula 4.0 01/11/21 16:00 97.7 78 23 101/62 (75) 99 01/11/21 12:59 80 01/11/21 12:00 97.3 78 24 85/33 (50) 99 01/11/21 12:00 Nasal Cannula 4.0 01/11/21 09:45 78 24 107/49 99 01/11/21 09:29 121 53/114 01/11/21 09:27 121/53 01/11/21 09:15 120 26 127/78 100 01/11/21 08:00 Nasal Cannula 4.0 01/11/21 08:00 97.7 110 26 116/58 (77) 99 01/11/21 07:43 107 01/11/21 04:11 Nasal Cannula 4.0 01/11/21 04:00 97.7 100 22 143/75 (97) 100 01/11/21 04:00 93 01/11/21 02:35 112 20 146/87 100 01/11/21 02:05 112 20 146/87 100 01/11/21 00:00 Nasal Cannula 4.0 01/11/21 00:00 76 01/11/21 00:00 97.3 77 22 141/75 (97) 100 01/10/21 21:27 92 161/77 01/10/21 20:00 Nasal Cannula 4.0 01/10/21 20:00 96.8 92 19 161/77 (105) 100 01/10/21 20:00 88 01/10/21 18:58 100 Nasal Cannula 4.0 36 01/10/21 16:00 Nasal Cannula 4.0 01/10/21 16:00 98.3 76 21 127/72 (90) 95 01/10/21 15:41 72 01/10/21 14:30 110 23 98 60 01/10/21 12:00 97.7 87 20 140/81 (100) 99 01/10/21 12:00 Nasal Cannula 4.0 01/10/21 12:00 97.7 87 20 140/81 (100) 99 01/10/21 11:41 120 01/10/21 09:20 98 Nasal Cannula 2.0 28 01/10/21 08:28 92 01/10/21 08:18 77 121/55 01/10/21 08:00 Nasal Cannula 2.0 01/10/21 08:00 97.3 90 18 122/55 (77) 95 Intake and Output 01/11/21 01/12/21 19:00 07:00 Intake Total 191.81 ml 901.29 ml Output Total 150 ml Balance 41.81 ml 901.29 ml Intake Oral 100 ml IV Total 91.81 ml 901.29 ml Output Urine Total 150 ml # Bowel Movements 1 Labs Test 01/09/21 08:15 01/09/21 13:07 01/09/21 20:25 01/10/21 04:35 White Blood Count 9.6 K/UL (4.8-10.8) Red Blood Count 3.36 M/UL (4.20-5.40) Hemoglobin 10.0 G/DL (12.0-16.0) Hematocrit 31.1 % (37.0-47.0) Mean Corpuscular Volume 93 FL (80-99) Mean Corpuscular Hemoglobin 29.7 PG (27.0-31.0) Mean Corpuscular Hemoglobin Concent 32.1 G/DL (32.0-36.0) Red Cell Distribution Width 12.7 % (11.6-14.8) Platelet Count 135 K/UL (150-450) Mean Platelet Volume 8.5 FL (6.5-10.1) Neutrophils (%) (Auto) 74.4 % (45.0-75.0) Lymphocytes (%) (Auto) 8.9 % (20.0-45.0) Monocytes (%) (Auto) 15.9 % (1.0-10.0) Eosinophils (%) (Auto) 0.1 % (0.0-3.0) Basophils (%) (Auto) 0.6 % (0.0-2.0) Sodium Level 139 MMOL/L (136-145) Potassium Level 5.0 MMOL/L (3.5-5.1) Chloride Level 105 MMOL/L (98-107) Carbon Dioxide Level 25 MMOL/L (21-32) Anion Gap 9 mmol/L (5-15) Blood Urea Nitrogen 29 mg/dL (7-18) Creatinine 1.0 MG/DL (0.55-1.30) Estimat Glomerular Filtration Rate > 60 mL/min (>60) Troponin I 19.913 ng/mL (0.000-0.056) Activated Partial Thromboplast Time 57 SEC (23-33) 96 SEC (23-33) 64 SEC (23-33) Test 01/10/21 11:57 01/11/21 05:13 01/11/21 09:35 01/11/21 10:00 Activated Partial Thromboplast Time 77 SEC (23-33) 58 SEC (23-33) Sodium Level 142 MMOL/L (136-145) Potassium Level 4.5 MMOL/L (3.5-5.1) Chloride Level 107 MMOL/L (98-107) Carbon Dioxide Level 24 MMOL/L (21-32) Anion Gap 11 mmol/L (5-15) Blood Urea Nitrogen 24 mg/dL (7-18) Creatinine 1.1 MG/DL (0.55-1.30) Estimat Glomerular Filtration Rate 56.6 mL/min (>60) Glucose Level 153 MG/DL (74-106) Calcium Level 9.3 MG/DL (8.5-10.1) Total Bilirubin 0.5 MG/DL (0.2-1.0) Aspartate Amino Transf (AST/SGOT) 51 U/L (15-37) Alanine Aminotransferase (ALT/SGPT) 67 U/L (12-78) Alkaline Phosphatase 92 U/L (46-116) Troponin I 11.413 ng/mL (0.000-0.056) Pro-B-Type Natriuretic Peptide 23304 pg/mL (0-125) Total Protein 6.9 G/DL (6.4-8.2) Albumin 2.8 G/DL (3.4-5.0) Globulin 4.1 g/dL Albumin/Globulin Ratio 0.7 (1.0-2.7) Arterial Blood pH 7.166 (7.350-7.450) Arterial Blood Partial Pressure CO2 51.0 mmHg (35.0-45.0) Arterial Blood Partial Pressure O2 133.5 mmHg (75.0-100.0) Arterial Blood HCO3 18.0 mmol/L (22.0-26.0) Arterial Blood Oxygen Saturation 97.8 % (95-100) Arterial Blood Base Excess -10.3 (-2-2) Mo Test Positive White Blood Count 7.3 K/UL (4.8-10.8) Red Blood Count 3.11 M/UL (4.20-5.40) Hemoglobin 9.2 G/DL (12.0-16.0) Hematocrit 29.6 % (37.0-47.0) Mean Corpuscular Volume 95 FL (80-99) Mean Corpuscular Hemoglobin 29.5 PG (27.0-31.0) Mean Corpuscular Hemoglobin Concent 31.0 G/DL (32.0-36.0) Red Cell Distribution Width 12.8 % (11.6-14.8) Platelet Count 191 K/UL (150-450) Mean Platelet Volume 7.5 FL (6.5-10.1) Neutrophils (%) (Auto) 80.5 % (45.0-75.0) Lymphocytes (%) (Auto) 4.6 % (20.0-45.0) Monocytes (%) (Auto) 12.3 % (1.0-10.0) Eosinophils (%) (Auto) 0.1 % (0.0-3.0) Basophils (%) (Auto) 2.5 % (0.0-2.0) Test 01/11/21 11:05 01/11/21 14:55 01/11/21 21:35 01/12/21 04:02 D-Dimer 4.24 mg/L FEU (0.00-0.49) Activated Partial Thromboplast Time 118 SEC (23-33) 92 SEC (23-33) 94 SEC (23-33) Height (Feet): 5 Height (Inches): 2.00 Weight (Pounds): 109 Objective GeN: Nad HEENT: PERRL/EOMI Neck: supple Cardiovascular: regular rhythm Respiratory/Chest: normal breath sounds Abdomen: non tender, soft Extremities: non-tender Elliot Mayberry MD Jan 12, 2021 06:23
--- NOTE | 2021-01-12 06:56 | NUR ---
NURSE NOTES: Left message for MD in regards for Dr. Hankins in regards to episode of 38 HR during bed bath. Pt. sleeping comfortably. Still attempting to remove medical devices. Will monitor.
--- NOTE | 2021-01-12 07:21 | NUR ---
NURSE HAND-OFF REPORT: Important Events on Shift: [facility] called. Pending bed. Patient Status: Stable; noncompliant Diet: Mech Soft 1:1 Pending Orders: Pending Results/Labs: Pending MD notification: Latest Vital Signs: Temperature 97.7 , Pulse 70 , B/P 130 /80 , Respiratory Rate 23 , O2 SAT 99 , Bi-pap, O2 Flow Rate 4.0 . Vital Sign Comment: EKG Rhythm: SR w BBB Rhythm change?: N MD Notified?: -Dr. Cr GUZMAN Response: Latest Joiner Fall Score: 45 Fall Risk: High Risk Safety Measures: Call light Within Reach, Bed Alarm Zone 1, Side Rails Side Rails x3, Bed position Low and Locked. Fall Precautions: Yellow Socks Yellow Gown Door Sign Patient Fall Education Report given to MISSY Candelaria.
[2021-01-12 08:00] VITALS: BP 123/75
--- NOTE | 2021-01-12 08:15 | Pulmonology Progress Note ---
Subjective ROS Limited/Unobtainable: No Interval Events: None major reported per nursing Constitutional: Denies: fever HEENT: Repors: no symptoms Respiratory: Reports: shortness of breath Cardiovascular: Reports: no symptoms Gastrointestinal/Abdominal: Reports: no symptoms Genitourinary: Reports: no symptoms Allergies: Coded Allergies: No Known Allergies (Unverified , 01/06/21) Objective Last 24 Hour Vital Signs Date Time Temp Pulse Resp B/P (MAP) Pulse Ox O2 Delivery O2 Flow Rate FiO2 01/12/21 04:00 71 01/12/21 04:00 Nasal Cannula 4.0 01/12/21 04:00 97.7 70 23 130/80 (97) 99 01/12/21 01:00 78 25 110/65 100 01/12/21 00:08 115 25 102/57 100 01/12/21 00:00 97.7 75 23 101/57 (72) 97 01/12/21 00:00 Nasal Cannula 4.0 01/12/21 00:00 69 01/11/21 21:00 80 109/70 01/11/21 20:00 80 01/11/21 20:00 98.0 80 23 109/70 (83) 99 01/11/21 20:00 Nasal Cannula 4.0 01/11/21 19:30 97 Nasal Cannula 3.0 32 01/11/21 19:30 71 19 97 Nasal Cannula 3.0 32 01/11/21 16:19 82 01/11/21 16:00 Nasal Cannula 4.0 01/11/21 16:00 97.7 78 23 101/62 (75) 99 01/11/21 12:59 80 01/11/21 12:00 97.3 78 24 85/33 (50) 99 01/11/21 12:00 Nasal Cannula 4.0 01/11/21 09:45 78 24 107/49 99 01/11/21 09:29 121 53/114 01/11/21 09:27 121/53 01/11/21 09:15 120 26 127/78 100 Intake and Output 01/11/21 01/12/21 19:00 07:00 Intake Total 191.81 ml 1023.10 ml Output Total 150 ml 500 ml Balance 41.81 ml 523.10 ml Intake Oral 100 ml 30 ml IV Total 91.81 ml 993.10 ml Output Urine Total 150 ml 500 ml # Bowel Movements 1 General Appearance: no acute distress HEENT: atraumatic Respiratory: accessory muscle use, crackles/rales Cardiovascular: regular rhythm, tachycardia Abdomen: soft, non tender Laboratory Tests 01/11/21 09:35: Arterial Blood pH 7.166*L, Arterial Blood Partial Pressure CO2 51.0H, Arterial Blood Partial Pressure O2 133.5H, Arterial Blood HCO3 18.0L, Arterial Blood Oxygen Saturation 97.8, Arterial Blood Base Excess -10.3*L, Mo Test Positive 01/11/21 10:00: White Blood Count 7.3, Red Blood Count 3.11L, Hemoglobin 9.2L, Hematocrit 29.6L, Mean Corpuscular Volume 95, Mean Corpuscular Hemoglobin 29.5, Mean Corpuscular Hemoglobin Concent 31.0L, Red Cell Distribution Width 12.8, Platelet Count 191, Mean Platelet Volume 7.5, Neutrophils (%) (Auto) 80.5H, Lymphocytes (%) (Auto) 4.6L, Monocytes (%) (Auto) 12.3H, Eosinophils (%) (Auto) 0.1, Basophils (%) (Au to) 2.5H 01/11/21 11:05: D-Dimer 4.24H 01/11/21 14:55: Activated Partial Thromboplast Time 118H 01/11/21 21:35: Activated Partial Thromboplast Time 92H 01/12/21 04:02: Activated Partial Thromboplast Time 94H Current Medications Medications (Trade) Dose Ordered Sig/Lexi Route PRN Reason Start Time Stop Time Status Last Admin Dose Admin Acetaminophen (Tylenol) 650 mg Q6H PRN ORAL Mild Pain (Pain Scale 1-3) 01/06/21 16:15 02/05/21 16:14 01/06/21 16:46 Aspirin (Ecotrin) 81 mg DAILY ORAL 01/08/21 13:45 02/22/21 13:44 01/11/21 09:29 Atorvastatin Calcium (Lipitor) 80 mg BEDTIME ORAL 01/08/21 21:00 04/08/21 20:59 01/10/21 21:52 Ceftriaxone Sodium 1 gm/ Dextrose 55 ml @ 110 mls/hr Q24H IVPB 01/06/21 10:00 01/13/21 09:59 01/11/21 09:31 Clopidogrel Bisulfate (Plavix) 75 mg DAILY ORAL 01/10/21 09:00 02/09/21 08:59 01/11/21 09:28 Furosemide (Lasix) 40 mg DAILY IV 01/11/21 09:00 02/10/21 08:59 01/11/21 09:28 Heparin Sodium/ Dextrose 500 ml @ 16.81 mls/ hr ADJUST PER PROTOCOL IV 01/11/21 16:15 02/10/21 16:14 01/12/21 02:00 Lorazepam (Ativan 2mg/ml 1ml) 0.5 mg Q6H PRN IV For Anxiety 01/07/21 09:30 01/14/21 09:29 01/12/21 00:08 Metoprolol Tartrate (Lopressor) 25 mg Q12HR ORAL 01/08/21 13:45 04/08/21 13:44 01/11/21 09:29 Pantoprazole (Protonix) 20 mg DAILY IVP 01/11/21 09:00 02/10/21 08:59 01/11/21 09:28 Sodium Chloride 1,000 ml @ 75 mls/hr [id number] IV 01/06/21 09:30 02/05/21 09:29 01/11/21 22:59 Assessment/Plan Assessment/Plan 1. Hypoxemic respiratory distress; improving -now off BiPAP -> now saturating well on 4L NC; continue to wean as tolerated - s/p dexamethasone (01/07-01/08) - Increased accessory muscle use this AM -> check ABG 2. COVID-19 PCR negative (01/06) - off isolation 3. Pneumonia -On broad-spectrum antibiotics per primary MD 4. Elevated BNP - s/p Lasix in the ER - cardio following 5. Elevated D-dimer with tachycardia - On heparin drip for DVT prophylaxis -Venous duplex of legs negative for DVT 6. Elevated troponin - Noted plans for transfer to [facility] for cath -Transfer is approved, awaiting ICU bed at [facility] given elevated troponin 7. NSTEMI - On heparin gtt + ASA + Plavix The care for this patient was discussed with my supervising physician. Time spent for this case was approximately 31 minutes. Moo Emmanuel Jan 12, 2021 08:15
--- NOTE | 2021-01-12 08:22 | NUR ---
NURSE NOTES: Received patient report from MISSY Miles. Patient is AO x0 asleep but responsive to touch. Patient shows no signs of distress or pain at the time but does try to take off O2 nasal canula. Patient is on 8L nasal canula and saturating at 100%. Per BJ Buenrostro, ok to titrate down. Patient is on Heparin Drip running at 17 units/ kg/ hr. IV is intact and patent. There are no signs of erythema, infiltration, or bleeding. Wu catheter intact and patent. Urine is dalila in color. Bed is in the lowest position, call light is within reach, side rails up x3. Will continue to monitor.
[2021-01-12] MEDS: Pantoprazole Inj IVP SCH (09:38)
[2021-01-12] MEDS: Aspirin EC 81mg tab ORAL SCH (09:39)
[2021-01-12] MEDS: cefTRIAXone 1 GM in D5W 55 ML IVPB SCH (09:40)
--- NOTE | 2021-01-12 10:14 | Pulmonology Progress Note ---
Subjective ROS Limited/Unobtainable: No Interval Events: None major reported per nursing Constitutional: Denies: fever HEENT: Repors: no symptoms Respiratory: Reports: shortness of breath Cardiovascular: Reports: no symptoms Gastrointestinal/Abdominal: Reports: no symptoms Genitourinary: Reports: no symptoms Allergies: Coded Allergies: No Known Allergies (Unverified , 01/06/21) Objective Last 24 Hour Vital Signs Date Time Temp Pulse Resp B/P (MAP) Pulse Ox O2 Delivery O2 Flow Rate FiO2 01/12/21 09:39 85 114/66 01/12/21 08:48 85 20 114/66 95 01/12/21 08:18 85 22 118/70 99 01/12/21 08:00 97.5 89 20 123/75 (91) 100 01/12/21 04:00 71 01/12/21 04:00 Nasal Cannula 4.0 01/12/21 04:00 97.7 70 23 130/80 (97) 99 01/12/21 01:00 78 25 110/65 100 01/12/21 00:08 115 25 102/57 100 01/12/21 00:00 97.7 75 23 101/57 (72) 97 01/12/21 00:00 Nasal Cannula 4.0 01/12/21 00:00 69 01/11/21 21:00 80 109/70 01/11/21 20:00 80 01/11/21 20:00 98.0 80 23 109/70 (83) 99 01/11/21 20:00 Nasal Cannula 4.0 01/11/21 19:30 97 Nasal Cannula 3.0 32 01/11/21 19:30 71 19 97 Nasal Cannula 3.0 32 01/11/21 16:19 82 01/11/21 16:00 Nasal Cannula 4.0 01/11/21 16:00 97.7 78 23 101/62 (75) 99 01/11/21 12:59 80 01/11/21 12:00 97.3 78 24 85/33 (50) 99 01/11/21 12:00 Nasal Cannula 4.0 Intake and Output 01/11/21 01/12/21 19:00 07:00 Intake Total 191.81 ml 1023.10 ml Output Total 150 ml 500 ml Balance 41.81 ml 523.10 ml Intake Oral 100 ml 30 ml IV Total 91.81 ml 993.10 ml Output Urine Total 150 ml 500 ml # Bowel Movements 1 General Appearance: no acute distress HEENT: atraumatic Respiratory: accessory muscle use, crackles/rales Cardiovascular: regular rhythm, tachycardia Abdomen: soft, non tender Laboratory Tests 01/11/21 11:05: D-Dimer 4.24H 01/11/21 14:55: Activated Partial Thromboplast Time 118H 01/11/21 21:35: Activated Partial Thromboplast Time 92H 01/12/21 04:02: Activated Partial Thromboplast Time 94H Current Medications Medications (Trade) Dose Ordered Sig/Lexi Route PRN Reason Start Time Stop Time Status Last Admin Dose Admin Acetaminophen (Tylenol) 650 mg Q6H PRN ORAL Mild Pain (Pain Scale 1-3) 01/06/21 16:15 02/05/21 16:14 01/06/21 16:46 Aspirin (Ecotrin) 81 mg DAILY ORAL 01/08/21 13:45 02/22/21 13:44 01/12/21 09:39 Atorvastatin Calcium (Lipitor) 80 mg BEDTIME ORAL 01/08/21 21:00 04/08/21 20:59 01/10/21 21:52 Ceftriaxone Sodium 1 gm/ Dextrose 55 ml @ 110 mls/hr Q24H IVPB 01/06/21 10:00 01/13/21 09:59 01/12/21 09:40 Clopidogrel Bisulfate (Plavix) 75 mg DAILY ORAL 01/10/21 09:00 02/09/21 08:59 01/12/21 09:40 Furosemide (Lasix) 40 mg DAILY IV 01/11/21 09:00 02/10/21 08:59 01/12/21 09:38 Heparin Sodium/ Dextrose 500 ml @ 16.81 mls/ hr ADJUST PER PROTOCOL IV 01/11/21 16:15 02/10/21 16:14 01/12/21 02:00 Lorazepam (Ativan 2mg/ml 1ml) 0.5 mg Q6H PRN IV For Anxiety 01/07/21 09:30 01/14/21 09:29 01/12/21 08:18 Metoprolol Tartrate (Lopressor) 25 mg Q12HR ORAL 01/08/21 13:45 04/08/21 13:44 01/12/21 09:39 Pantoprazole (Protonix) 20 mg DAILY IVP 01/11/21 09:00 02/10/21 08:59 01/12/21 09:38 Sodium Chloride 1,000 ml @ 75 mls/hr [id number] IV 01/06/21 09:30 02/05/21 09:29 01/11/21 22:59 Assessment/Plan Assessment/Plan 1. Hypoxemic respiratory distress; improving -now off BiPAP -> now saturating well on 8L NC; continue to wean as tolerated - s/p dexamethasone (01/07-01/08) - Increased accessory muscle use -> check ABG 2. COVID-19 PCR negative (01/06) - off isolation 3. Pneumonia -On broad-spectrum antibiotics per primary MD 4. Elevated BNP - s/p Lasix in the ER - cardio following 5. Elevated D-dimer with tachycardia - On heparin drip for DVT prophylaxis -Venous duplex of legs negative for DVT 6. Elevated troponin - Noted plans for transfer to [facility] for cath -Transfer is approved, awaiting ICU bed at [facility] given elevated troponin 7. NSTEMI - On heparin gtt + ASA + Plavix The care for this patient was discussed with my supervising physician. Time spent for this case was approximately 31 minutes. Moo Emmanuel Jan 12, 2021 10:14
--- NOTE | 2021-01-12 10:21 | NUR ---
CASE MANAGEMENT:REVIEW 01/12/21 SI: NSTEMI. NSVT. AC/CHR CHF. COPD. SEVERE AORTIC VALVE STENOSIS 97.5 89 20 123/75 100% ON 4L/NC TROPONIN(+) 11.41 IS: HEPARIN GTT IV ROCEPHIN Q24 IVF@75/HR IV PROTONIX QD IV LASIX QD LOPRESSOR PO Q12 ASA PO QD LIPITOR PO QHS : STEP DOWN UNIT DCP: FROM HOME PLAN: TRANSFER TO HIGHER LEVEL OF CARE ~ [facility]...WAITING FOR AVAILABLE BED
--- NOTE | 2021-01-12 11:24 | Infectious Diseases Prog Note ---
Assessment/Plan Assessment/Plan antibiotics : ceftriaxone A 1. pneumonia improving covid 19 negative 2. increased LFT 3. anemia P 1. d/c ceftriaxone 2. will follow up cultures Subjective ROS Limited/Unobtainable: Yes Allergies: Coded Allergies: No Known Allergies (Unverified , 01/06/21) Objective Last 24 Hour Vital Signs Date Time Temp Pulse Resp B/P (MAP) Pulse Ox O2 Delivery O2 Flow Rate FiO2 01/12/21 09:39 85 114/66 01/12/21 08:48 85 20 114/66 95 01/12/21 08:18 85 22 118/70 99 01/12/21 08:00 Nasal Cannula 6.0 01/12/21 08:00 97.5 89 20 123/75 (91) 100 01/12/21 04:00 71 01/12/21 04:00 Nasal Cannula 4.0 01/12/21 04:00 97.7 70 23 130/80 (97) 99 01/12/21 01:00 78 25 110/65 100 01/12/21 00:08 115 25 102/57 100 01/12/21 00:00 97.7 75 23 101/57 (72) 97 01/12/21 00:00 Nasal Cannula 4.0 01/12/21 00:00 69 01/11/21 21:00 80 109/70 01/11/21 20:00 80 01/11/21 20:00 98.0 80 23 109/70 (83) 99 01/11/21 20:00 Nasal Cannula 4.0 01/11/21 19:30 97 Nasal Cannula 3.0 32 01/11/21 19:30 71 19 97 Nasal Cannula 3.0 32 01/11/21 16:19 82 01/11/21 16:00 Nasal Cannula 4.0 01/11/21 16:00 97.7 78 23 101/62 (75) 99 01/11/21 12:59 80 01/11/21 12:00 97.3 78 24 85/33 (50) 99 01/11/21 12:00 Nasal Cannula 4.0 Height (Feet): 5 Height (Inches): 2.00 Weight (Pounds): 109 Respiratory/Chest: lungs clear Cardiovascular: normal rate, regular rhythm, no gallop/murmur Abdomen: soft, non tender Extremities: no edema Laboratory Tests Test 01/11/21 14:55 01/11/21 21:35 01/12/21 04:02 Activated Partial Thromboplast Time 118 SEC (23-33) H 92 SEC (23-33) H 94 SEC (23-33) H Current Medications Medications (Trade) Dose Ordered Sig/Lexi Route PRN Reason Start Time Stop Time Status Last Admin Dose Admin Acetaminophen (Tylenol) 650 mg Q6H PRN ORAL Mild Pain (Pain Scale 1-3) 01/06/21 16:15 02/05/21 16:14 01/06/21 16:46 Aspirin (Ecotrin) 81 mg DAILY ORAL 01/08/21 13:45 02/22/21 13:44 01/12/21 09:39 Atorvastatin Calcium (Lipitor) 80 mg BEDTIME ORAL 01/08/21 21:00 04/08/21 20:59 01/10/21 21:52 Ceftriaxone Sodium 1 gm/ Dextrose 55 ml @ 110 mls/hr Q24H IVPB 01/06/21 10:00 01/13/21 09:59 01/12/21 09:40 Clopidogrel Bisulfate (Plavix) 75 mg DAILY ORAL 01/10/21 09:00 02/09/21 08:59 01/12/21 09:40 Furosemide (Lasix) 40 mg DAILY IV 01/11/21 09:00 02/10/21 08:59 01/12/21 09:38 Heparin Sodium/ Dextrose 500 ml @ 16.81 mls/ hr ADJUST PER PROTOCOL IV 01/11/21 16:15 02/10/21 16:14 01/12/21 02:00 Lorazepam (Ativan 2mg/ml 1ml) 0.5 mg Q6H PRN IV For Anxiety 01/07/21 09:30 01/14/21 09:29 01/12/21 08:18 Metoprolol Tartrate (Lopressor) 25 mg Q12HR ORAL 01/08/21 13:45 04/08/21 13:44 01/12/21 09:39 Pantoprazole (Protonix) 20 mg DAILY IVP 01/11/21 09:00 02/10/21 08:59 01/12/21 09:38 Sodium Chloride 1,000 ml @ 75 mls/hr [id number] IV 01/06/21 09:30 02/05/21 09:29 01/11/21 22:59 Emmie Dickson MD Jan 12, 2021 11:24
[2021-01-12 12:00] VITALS: BP 132/69
--- NOTE | 2021-01-12 13:34 | Cardiology Progress Note ---
Assessment/Plan Status: not improved Status Narrative Breathing with effort today. 89 yo F admitted for chest pain and SOB. NSTEMI with troponin elevation, in acute HF with fluid overload and elevated BNP, O2 dependent. Echo EF 40-45% with severe . NSVT, currently in SR. Family declines intervention. Assessment/Plan 1. NSTEMI with troponin elevation 19 x3, now trop 11 now chest pain free heparin gtt plavix and asa 2. HFrEF, acute on chronic systolic on diastolic HF EF 40%, with elevated BNP Diuresis with IV Lasix 3. Aortic valve stenosis - severe 4. HTN 5. Frailty and advanced age, dementia 6. Dyspnea and oxygen dependence 7. COPD 8. NSVT 9. Anemia Subjective ROS Limited/Unobtainable: Yes Respiratory: Reports: SOB at rest Subjective O2 NC, resting comfortably. Objective Last 24 Hour Vital Signs Date Time Temp Pulse Resp B/P (MAP) Pulse Ox O2 Delivery O2 Flow Rate FiO2 01/12/21 09:39 85 114/66 01/12/21 08:48 85 20 114/66 95 01/12/21 08:18 85 22 118/70 99 01/12/21 08:00 Nasal Cannula 6.0 01/12/21 08:00 97.5 89 20 123/75 (91) 100 01/12/21 07:00 100 Nasal Cannula 4.0 36 01/12/21 04:00 71 01/12/21 04:00 Nasal Cannula 4.0 01/12/21 04:00 97.7 70 23 130/80 (97) 99 01/12/21 01:00 78 25 110/65 100 01/12/21 00:08 115 25 102/57 100 01/12/21 00:00 97.7 75 23 101/57 (72) 97 01/12/21 00:00 Nasal Cannula 4.0 01/12/21 00:00 69 01/11/21 21:00 80 109/70 01/11/21 20:00 80 01/11/21 20:00 98.0 80 23 109/70 (83) 99 01/11/21 20:00 Nasal Cannula 4.0 01/11/21 19:30 97 Nasal Cannula 3.0 32 01/11/21 19:30 71 19 97 Nasal Cannula 3.0 32 01/11/21 16:19 82 01/11/21 16:00 Nasal Cannula 4.0 01/11/21 16:00 97.7 78 23 101/62 (75) 99 General Appearance: no apparent distress EENT: PERRL/EOMI Neck: JVD Rhythm: NSR Cardiovascular: regular rhythm, systolic murmur Respiratory/Chest: decreased breath sounds, crackles/rales Abdomen: soft Extremities: moderate edema Neurologic: photographic lithographer II-XII grossly normal Intake and Output 01/11/21 01/12/21 19:00 07:00 Intake Total 191.81 ml 1023.10 ml Output Total 150 ml 500 ml Balance 41.81 ml 523.10 ml Intake Oral 100 ml 30 ml IV Total 91.81 ml 993.10 ml Output Urine Total 150 ml 500 ml # Bowel Movements 1 Laboratory Tests Test 01/11/21 14:55 01/11/21 21:35 01/12/21 04:02 Activated Partial Thromboplast Time 118 SEC (23-33) H 92 SEC (23-33) H 94 SEC (23-33) H Lucy Mccauley PA-C Jan 12, 2021 13:33
--- NOTE | 2021-01-12 14:44 | NUR ---
NURSE NOTES: Spoke to son Sawyer today. He said he was going to draft roller picker his mom and take her to another hospital. I explained to son that patient is on 6L nasal canula and might be too unstable to take without supplemental oxygen. He said it did not matter. I also explained he would have to sign AMA paper saying he is taking her against medical advice, he agreed. I let Dr. Bowers know there has been no response. I also let Dr. Miner know. Son said he would be here around 5 or 6 pm.
--- NOTE | 2021-01-12 15:10 | NUR ---
INSURANCE CLINICALS/REVIEW FAXED TO [facility]#[phone] fax#[phone]
[2021-01-12 16:00] VITALS: BP 142/82
--- NOTE | 2021-01-12 18:11 | General Progress Note ---
Subjective Date patient seen: Jan 12, 2021 Constitutional: Reports: weakness HEENT: Reports: no symptoms Cardiovascular: Reports: no symptoms, palpitations Respiratory: Reports: no symptoms, SOB with excertion Allergies: Coded Allergies: No Known Allergies (Unverified , 01/06/21) Objective Last 24 Hour Vital Signs Date Time Temp Pulse Resp B/P (MAP) Pulse Ox O2 Delivery O2 Flow Rate FiO2 01/12/21 16:00 Nasal Cannula 6.0 01/12/21 16:00 97.9 86 22 142/82 (102) 100 01/12/21 16:00 87 01/12/21 12:00 82 01/12/21 12:00 Nasal Cannula 6.0 01/12/21 12:00 97.3 87 20 132/69 (90) 99 01/12/21 09:39 85 114/66 01/12/21 08:48 85 20 114/66 95 01/12/21 08:18 85 22 118/70 99 01/12/21 08:00 Nasal Cannula 6.0 01/12/21 08:00 97.5 89 20 123/75 (91) 100 01/12/21 08:00 83 01/12/21 07:00 100 Nasal Cannula 4.0 36 01/12/21 04:00 71 01/12/21 04:00 Nasal Cannula 4.0 01/12/21 04:00 97.7 70 23 130/80 (97) 99 01/12/21 01:00 78 25 110/65 100 01/12/21 00:08 115 25 102/57 100 01/12/21 00:00 97.7 75 23 101/57 (72) 97 01/12/21 00:00 Nasal Cannula 4.0 01/12/21 00:00 69 01/11/21 21:00 80 109/70 01/11/21 20:00 80 01/11/21 20:00 98.0 80 23 109/70 (83) 99 01/11/21 20:00 Nasal Cannula 4.0 01/11/21 19:30 97 Nasal Cannula 3.0 32 01/11/21 19:30 71 19 97 Nasal Cannula 3.0 32 Intake and Output 01/11/21 01/12/21 19:00 07:00 Intake Total 191.81 ml 1039.91 ml Output Total 150 ml 500 ml Balance 41.81 ml 539.91 ml Intake Oral 100 ml 30 ml IV Total 91.81 ml 1009.91 ml Output Urine Total 150 ml 500 ml # Bowel Movements 1 Laboratory Tests 01/11/21 21:35: Activated Partial Thromboplast Time 92H 01/12/21 04:02: Activated Partial Thromboplast Time 94H Height (Feet): 5 Height (Inches): 2.00 Weight (Pounds): 109 General Appearance: alert EENT: PERRL/EOMI Neck: supple Cardiovascular: normal rate Respiratory/Chest: lungs clear Abdomen: non tender, soft Extremities: non-tender Assessment/Plan Status: not improved Assessment/Plan: nstemi on medical tx, waiting for cardiac cath at [facility] 19 negative ac copd exacerabation chf htn cardiac arrhtemia agitation cont iv abx iv decadrone on heparin drip add ativan fu labs dw pulmonary cardiology on the case left message to the son yesterday and today does not p c up the phone and voice message is full Vinod Bowers MD Jan 12, 2021 18:11
--- NOTE | 2021-01-12 19:00 | NUR ---
NURSE NOTES: Received report from MISSY Candelaria. pt is lying in bed in high kahn's position,Pt on nasal cannula at 6L/min per Dr. garcia wean off to oxyge, o2 sat- 100%. Pt hasn o distress, but accessory muscles use. Alert oriented x 1-2. Pt alert to name and place. pt able to verbalized and open eyes. Pt appears weak and ill. Per regulatory process manager noted and [place] [facility] [place] needs to be transfer for higher acuity level because of NSTEMI (high troponin level). Son per AM nurse aware of the situation. MD aware still waiting for bed. Pt on coagulation therapy. Running heparin drip at 16.81nml/hr, with right wrist running 1/2 NS at 75ml/hr intact and patent., with Right hand intact and patent. ABG result for 01/12- MD forde aware. Pt denies chest pain or abdominal pain. No any drooping noted. Will continue to monitor pt closely. Bed in lowest position, call light within reach.
--- NOTE | 2021-01-12 19:11 | NUR ---
NURSE HAND-OFF REPORT: Important Events on Shift:[Patient on 6L nasal canula and tolerating well. Son did not come to pick her up. Patient is lethargic but is aroused to name and touch] Patient Status: [Full code] Diet: [Mechanical soft 1:1] Pending Orders: [] Pending Results/Labs:[] Pending MD notification:[] Latest Vital Signs: Temperature 97.9 , Pulse 86 , B/P 142 /82 , Respiratory Rate 22 , O2 SAT 100 , Bi-pap, O2 Flow Rate 6.0 . Vital Sign Comment: [] EKG Rhythm: SR w BBB Rhythm change?: N MD Notified?: -Dr. Cr GUZMAN Response: Latest Joinre Fall Score: 45 Fall Risk: High Risk Safety Measures: Call light Within Reach, Bed Alarm Zone 1, Side Rails Side Rails x3, Bed position Low and Locked. Fall Precautions: Yellow Socks Yellow Gown Door Sign Patient Fall Education Report given to [MISSY Jefferson].
--- NOTE | 2021-01-12 19:36 | Cardiology Report ---
APPROVED REPORT EXAM: Two-dimensional and M-mode echocardiogram with Doppler and color Doppler. INDICATION Congestive Heart Failure M-Mode DIMENSIONS IVSd1.3 (0.7-1.1cm)Left Atrium (MM)3.7 (1.6-4.0cm) LVDd4.9 (3.5-5.6cm)Aortic Root2.1 (2.0-3.7cm) PWd1.2 (0.7-1.1cm)Aortic Cusp Exc.1.1 (1.5-2.0cm) IVSs1.5 cmEPSS0.4 (>1.0cm) LVDs3.4 (2.5-4.0cm) PWs2.0 cm <Conclusion> Technically difficult and limited study due to poor parasternal acoustical windows. Normal left ventricular chamber size. Prominent basal septum. Hypokinesia of apical cap, mid to apical inferosepal wall and apical anteroseptal wall. Ischemic cardiomyopathy can not be excluded. Left ventricular ejection fraction is estimated to be 40-45%. Small pericardial effusion. Left atrial size at upper limits of normal. Right cardiac chamber sizes are within normal limits. Heavy aortic valve calcification with decreased cusp excursion. Heavy thickened mitral valve leaflets with normal excursion. Heavy mitral annulus and severe aortic root calcification. Pulmonic valve is not obtainable. Normal tricuspid valve structure. IVC at normal size without physiologic collapse. A color flow and spectral Doppler study was performed and revealed: Mild aortic regurgitation. Peak aortic valve gradient of 90 mm Hg and a mean of 64 mmHg. Aortic valve area 0.6 cm2 calculated by continuity equation suggestive of critical aortic stenosis. Mean preasure gradient across the aortic valve is 63mmHg and peak pressure gradient is 99.5 mmHg. Severe mitral regurgitation. Mitral diastolic velocities suggest reduced left ventricular relaxation c/w mild LV diastolic dysfunction (Grade I ). Moderate tricuspid regurgitation. Tricuspid systolic velocities suggests peak right ventricular systolic pressure of 50 mmHg, consistent with moderate pulmonary hypertension.
[2021-01-12 20:00] VITALS: BP 127/98
[2021-01-12] MEDS: Atorvastatin 80mg tab ORAL SCH (20:16)
--- NOTE | 2021-01-12 21:15 | NUR ---
NURSE NOTES: Noted pt is drowsy, and accessory muscle use upon assessment. O2 sat- 100%, can go down as low as 88%. Informed Rt to check ABG- abg resulted ph: 7.2, pco2:54.5, Po2:272.3, hco3:24.7. Informed and left message to Dr. Miner right away. Rt on bedside, titrated down the o2 at 3L.
--- NOTE | 2021-01-12 21:56 | NUR ---
NURSE NOTES: Left message again to Dr. contreras. Awaiting for response.
--- NOTE | 2021-01-12 22:16 | NUR ---
7 Addendum: 01/12/21 at 2217 by Princess Gilberto RN Disregard documentation
--- NOTE | 2021-01-12 22:16 | NUR ---
NURSE NOTES: pt o2 sat is stable 02 sat -100%, titrate it down to 100%, no change in baseline status upon receiving the pt. Still alert to name. Will continue to monitor pt closely.
--- NOTE | 2021-01-12 22:18 | NUR ---
NURSE NOTES: Check pt BS- 85mg/dl. No signs of hypoglycemia noted.
--- NOTE | 2021-01-12 22:38 | NUR ---
NURSE NOTES: Spoke to Dr. Miner, regarding the po2- 272.3. NNO at this time. Ordered to inform Dr. Bowers regarding creatinine level- 4.1. Made him aware that pt is not eating a lot, NNO at this time. Addendum: 01/12/21 at 2242 by Princess Gilberto RN Rechecked creatinine it's 1.1. Disregard creatinine of 4.1, will informed .
--- NOTE | 2021-01-12 22:38 | NUR ---
NURSE NOTES: Also Dr. Miner made aware that pt is drowsy but alert to name. NNO at this time.
[2021-01-13] VITALS: BP 124/66
--- NOTE | 2021-01-13 | NUR ---
NURSE NOTES: Pt is sleeping, awaken by name. Pt is responsive. Pt denies pain. Still tachypneic, o2 sat- 100%. O2 at 2L NC. Dr. Miner previously aware and per Pancho garcia notes pt accessory muscle use for breathing. Pt has also COPD.
--- NOTE | 2021-01-13 02:15 | NUR ---
NURSE NOTES: Pt appears tachypneic and on distress. O2 sat- 100% on NC @2L. Pt appears on distress. Informed Rt. Rt on bedside. Applied BIPAP as ordered, fio2-30%. Pt has episodes of sinus tachy after sponge bath is given. EKG done, as pt complaint of chest pain. Informed Dr. Hankins but per Dr. yandel Ramirez takes over now and the PA is jacob hodges, LVM to jacob hodges. Awaiting for response. Will COntinue to monitor pt closely.
--- NOTE | 2021-01-13 02:34 | NUR ---
Tried contacting , unable to LVM.
--- NOTE | 2021-01-13 02:35 | NUR ---
NURSE NOTES: Informed Dr. Bowers Made him aware pt has episode of Sinus tachy with PVC and chest pain, received order for Digoxin 0.25mg/dl IVP, made him aware pt is not eating that much and poor appetite, ordered to change IVF to D51/2 NS at 75ml/hr.
[2021-01-13] MEDS ORDERED: Digoxin 0.5mg/2ml Inj IVP SCH ×3 (02:45→15:00)
[2021-01-13] MEDS ORDERED: D5 1/2NS 1,000 ML IV SCH (03:00)
--- NOTE | 2021-01-13 03:05 | NUR ---
NURSE NOTES: Converted back to SR with BBB HR- 97. O2 sat- 100% on BIPAP fio2- 30%.
[2021-01-13] MEDS ORDERED: Albuterol/Ipratropium 3ml neb HHN PRN (03:30)
--- NOTE | 2021-01-13 03:37 | NUR ---
NURSE NOTES: Received new order from Dr. Bowers, also made him aware pt has audible wheezes earlier before BIPAP application, non heard after applying BIPAP. Restraints applied as pt pulling the BIPAP. Ordered ABG in AM. New orders noted and carried out.
--- NOTE | 2021-01-13 03:47 | NUR ---
NURSE NOTES: Pt is sleeping with no distress noted. O2 sat- 100%.
--- NOTE | 2021-01-13 03:56 | NUR ---
NURSE NOTES: Noted wheeze on Left lower lobe of lungs, informed RT. for Duoneb HR- 89.
[2021-01-13 04:00] VITALS: BP 100/56
--- NOTE | 2021-01-13 04:28 | NUR ---
NURSE NOTES: No more wheezing noted. Pt is sleeping, o2 saT- 100%.
[2021-01-13 04:47] LABS: HEMATOCRIT 27.2 % (37.0-47.0); HEMOGLOBIN 8.6 G/DL (12.0-16.0); MEAN CORPUSCULAR VOLUME 95 FL (80-99); PLATELET COUNT 153 K/UL (150-450); RED BLOOD COUNT 2.85 M/UL (4.20-5.40); RED CELL DISTRIBUTION WIDTH 12.8 % (11.6-14.8); WHITE BLOOD COUNT 6.2 K/UL (4.8-10.8)
[2021-01-13 05:03] LABS: CALCIUM 8.7 MG/DL (8.5-10.1); CREATININE 1.5 MG/DL (0.55-1.30); POTASSIUM 5.4 MMOL/L (3.5-5.1)
--- NOTE | 2021-01-13 05:44 | NUR ---
NURSE NOTES: Noted potassium 5.4. Pt on d55 1/2 NS at 75ml/hr. Dr. Bowers made aware,left message, awaiting for response. O2 sat-99-100%. Pt is cool to touch, pt capillary refill less than 3secs. Alert x [address] Awaiting for response of Dr. Bowers.
--- NOTE | 2021-01-13 05:49 | NUR ---
NURSE NOTES: Informed pharmacy aptt- 90m/dl, awaiting for response for the heparin drip.
--- NOTE | 2021-01-13 05:52 | NUR ---
NURSE NOTES: Per pharmacy continue current rate of Heparin drip.
--- NOTE | 2021-01-13 06:30 | Hematology/Onc Progress Note ---
Assessment/Plan Assessment/Plan coaulopathy due to heparin gtt that has been started for nstemi anemia due to chronic disease, multifactorial nstemi on medical tx, waiting for cardiac cath at [facility] or [facility], continue hep gtt covid 19 negative ac copd exacerabation chf htn cardiac arrhtemia agitation cont iv abx iv decadrone on heparin drip add ativan fu labs dw pulmonary cardiology on the case Subjective HEENT: Denies: no symptoms, eye pain, blurred vision, tearing, double vision, ear pain, ear discharge, nose pain, nose congestion, throat pain, throat swelling, mouth pain, mouth swelling, other Cardiovascular: Denies: no symptoms, chest pain, edema, irregular heart rate, lightheadedness, palpitations, syncope, other Respiratory: Denies: no symptoms, cough, shortness of breath, SOB with excertion, SOB at rest, sputum, wheezing, other Gastrointestinal/Abdominal: Denies: no symptoms, abdomen distended, abdominal pain, black stools, tarry stools, blood in stool, constipated, diarrhea, diffi culty swallowing, nausea, poor appetite, poor fluid intake, rectal bleeding, vomiting, other Neurologic/Psychiatric: Denies: no symptoms, anxiety, depressed, emotional problems, headache, numbness, paresthesia, pre-existing deficit, seizure, tingling, tremors, weakness, other Endocrine: Denies: no symptoms, excessive sweating, flushing, intolerance to cold, intolerance to heat, increased hunger, increased thirst, increased urine, unexplained weight gain, unexplained weight loss, other Hematologic/Lymphatic: Denies: no symptoms, anemia, easy bleeding, easy bruising, adenopathy, other Allergies: Coded Allergies: No Known Allergies (Unverified , 01/06/21) Subjective 01/11 labs reviewed, remains confused, meds noted, do rn, on hep gtt 01/12 pending placement at [facility], holding hep gtt as ptt 91 01/13 no night sweats, hgb 8.6, no hemolysis, no bleeding Objective Objective Current Medications Medications (Trade) Dose Ordered Sig/Lexi Route PRN Reason Start Time Stop Time Status Last Admin Dose Admin Acetaminophen (Tylenol) 650 mg Q6H PRN ORAL Mild Pain (Pain Scale 1-3) 01/06/21 16:15 02/05/21 16:14 01/06/21 16:46 Albuterol/ Ipratropium (Albuterol/ Ipratropium) 3 ml Q6HRT PRN HHN Shortness of Breath 01/13/21 03:30 01/18/21 03:29 01/13/21 04:04 Aspirin (Ecotrin) 81 mg DAILY ORAL 01/08/21 13:45 02/22/21 13:44 01/12/21 09:39 Atorvastatin Calcium (Lipitor) 80 mg BEDTIME ORAL 01/08/21 21:00 04/08/21 20:59 01/12/21 20:16 Clopidogrel Bisulfate (Plavix) 75 mg DAILY ORAL 01/10/21 09:00 02/09/21 08:59 01/12/21 09:40 Dextrose/Sodium Chloride 1,000 ml @ 75 mls/hr [id number] IV 01/13/21 03:00 02/12/21 02:59 01/13/21 02:48 Digoxin (Lanoxin) 0.25 mg DAILY IVP 01/13/21 09:00 04/13/21 08:59 Furosemide (Lasix) 20 mg DAILY IV 01/13/21 09:00 02/12/21 08:59 Heparin Sodium/ Dextrose 500 ml @ 16.81 mls/ hr ADJUST PER PROTOCOL IV 01/11/21 16:15 02/10/21 16:14 01/12/21 02:00 Methylprednisolone Sodium Succinate (Solu-MEDROL) 20 mg DAILY IVP 01/13/21 09:00 04/13/21 08:59 Metoprolol Tartrate (Lopressor) 25 mg Q12HR ORAL 01/08/21 13:45 04/08/21 13:44 01/12/21 09:39 Pantoprazole (Protonix) 20 mg DAILY IVP 01/11/21 09:00 02/10/21 08:59 01/12/21 09:38 Last 24 Hour Vital Signs Date Time Temp Pulse Resp B/P (MAP) Pulse Ox O2 Delivery O2 Flow Rate FiO2 01/13/21 04:04 89 21 100 Bi-Pap 30 87 23 100 01/13/21 04:00 97.5 96 24 100/56 (71) 100 01/13/21 04:00 86 01/13/21 04:00 Nasal Cannula 2.0 01/13/21 03:05 95 01/13/21 02:53 103 01/13/21 02:48 111 01/13/21 02:14 112 24 100 30 01/13/21 00:00 87 01/13/21 00:00 Nasal Cannula 2.0 01/13/21 00:00 97.7 89 22 124/66 (85) 100 01/12/21 21:32 99 Nasal Cannula 2.0 28 01/12/21 20:15 72 101/70 01/12/21 20:00 88 01/12/21 20:00 98.1 90 23 127/98 (108) 100 01/12/21 20:00 Nasal Cannula 6.0 01/12/21 16:00 Nasal Cannula 6.0 01/12/21 16:00 97.9 86 22 142/82 (102) 100 01/12/21 16:00 87 01/12/21 12:00 82 01/12/21 12:00 Nasal Cannula 6.0 01/12/21 12:00 97.3 87 20 132/69 (90) 99 01/12/21 09:39 85 114/66 01/12/21 08:48 85 20 114/66 95 01/12/21 08:18 85 22 118/70 99 01/12/21 08:00 Nasal Cannula 6.0 01/12/21 08:00 97.5 89 20 123/75 (91) 100 01/12/21 08:00 83 01/12/21 07:00 100 Nasal Cannula 4.0 36 01/12/21 04:00 71 01/12/21 04:00 Nasal Cannula 4.0 01/12/21 04:00 97.7 70 23 130/80 (97) 99 01/12/21 01:00 78 25 110/65 100 01/12/21 00:08 115 25 102/57 100 01/12/21 00:00 97.7 75 23 101/57 (72) 97 01/12/21 00:00 Nasal Cannula 4.0 01/12/21 00:00 69 01/11/21 21:00 80 109/70 01/11/21 20:00 80 01/11/21 20:00 98.0 80 23 109/70 (83) 99 01/11/21 20:00 Nasal Cannula 4.0 01/11/21 19:30 97 Nasal Cannula 3.0 32 01/11/21 19:30 71 19 97 Nasal Cannula 3.0 32 01/11/21 16:19 82 01/11/21 16:00 Nasal Cannula 4.0 01/11/21 16:00 97.7 78 23 101/62 (75) 99 01/11/21 12:59 80 01/11/21 12:00 97.3 78 24 85/33 (50) 99 01/11/21 12:00 Nasal Cannula 4.0 01/11/21 09:45 78 24 107/49 99 01/11/21 09:29 121 53/114 01/11/21 09:27 121/53 01/11/21 09:15 120 26 127/78 100 01/11/21 08:00 Nasal Cannula 4.0 01/11/21 08:00 97.7 110 26 116/58 (77) 99 01/11/21 07:43 107 Intake and Output 01/12/21 01/13/21 19:00 07:00 Intake Total 326.72 ml 1043.10 ml Output Total 600 ml 900 ml Balance -273.28 ml 143.10 ml Intake Oral 50 ml 50 ml IV Total 276.72 ml 993.10 ml Output Urine Total 600 ml 900 ml Labs Test 01/10/21 11:57 01/11/21 05:13 01/11/21 09:35 01/11/21 10:00 Activated Partial Thromboplast Time 77 SEC (23-33) 58 SEC (23-33) Sodium Level 142 MMOL/L (136-145) Potassium Level 4.5 MMOL/L (3.5-5.1) Chloride Level 107 MMOL/L (98-107) Carbon Dioxide Level 24 MMOL/L (21-32) Anion Gap 11 mmol/L (5-15) Blood Urea Nitrogen 24 mg/dL (7-18) Creatinine 1.1 MG/DL (0.55-1.30) Estimat Glomerular Filtration Rate 56.6 mL/min (>60) Glucose Level 153 MG/DL (74-106) Calcium Level 9.3 MG/DL (8.5-10.1) Total Bilirubin 0.5 MG/DL (0.2-1.0) Aspartate Amino Transf (AST/SGOT) 51 U/L (15-37) Alanine Aminotransferase (ALT/SGPT) 67 U/L (12-78) Alkaline Phosphatase 92 U/L (46-116) Troponin I 11.413 ng/mL (0.000-0.056) Pro-B-Type Natriuretic Peptide 62302 pg/mL (0-125) Total Protein 6.9 G/DL (6.4-8.2) Albumin 2.8 G/DL (3.4-5.0) Globulin 4.1 g/dL Albumin/Globulin Ratio 0.7 (1.0-2.7) Arterial Blood pH 7.166 (7.350-7.450) Arterial Blood Partial Pressure CO2 51.0 mmHg (35.0-45.0) Arterial Blood Partial Pressure O2 133.5 mmHg (75.0-100.0) Arterial Blood HCO3 18.0 mmol/L (22.0-26.0) Arterial Blood Oxygen Saturation 97.8 % (95-100) Arterial Blood Base Excess -10.3 (-2-2) Mo Test Positive White Blood Count 7.3 K/UL (4.8-10.8) Red Blood Count 3.11 M/UL (4.20-5.40) Hemoglobin 9.2 G/DL (12.0-16.0) Hematocrit 29.6 % (37.0-47.0) Mean Corpuscular Volume 95 FL (80-99) Mean Corpuscular Hemoglobin 29.5 PG (27.0-31.0) Mean Corpuscular Hemoglobin Concent 31.0 G/DL (32.0-36.0) Red Cell Distribution Width 12.8 % (11.6-14.8) Platelet Count 191 K/UL (150-450) Mean Platelet Volume 7.5 FL (6.5-10.1) Neutrophils (%) (Auto) 80.5 % (45.0-75.0) Lymphocytes (%) (Auto) 4.6 % (20.0-45.0) Monocytes (%) (Auto) 12.3 % (1.0-10.0) Eosinophils (%) (Auto) 0.1 % (0.0-3.0) Basophils (%) (Auto) 2.5 % (0.0-2.0) Test 01/11/21 11:05 01/11/21 14:55 01/11/21 21:35 01/12/21 04:02 D-Dimer 4.24 mg/L FEU (0.00-0.49) Activated Partial Thromboplast Time 118 SEC (23-33) 92 SEC (23-33) 94 SEC (23-33) Test 01/12/21 21:00 01/13/21 04:00 Arterial Blood pH 7.274 (7.350-7.450) Arterial Blood Partial Pressure CO2 54.5 mmHg (35.0-45.0) Arterial Blood Partial Pressure O2 272.3 mmHg (75.0-100.0) Arterial Blood HCO3 24.7 mmol/L (22.0-26.0) Arterial Blood Oxygen Saturation 98.9 % (95-100) Arterial Blood Base Excess -2.3 (-2-2) Mo Test Positive White Blood Count 6.2 K/UL (4.8-10.8) Red Blood Count 2.85 M/UL (4.20-5.40) Hemoglobin 8.6 G/DL (12.0-16.0) Hematocrit 27.2 % (37.0-47.0) Mean Corpuscular Volume 95 FL (80-99) Mean Corpuscular Hemoglobin 30.0 PG (27.0-31.0) Mean Corpuscular Hemoglobin Concent 31.4 G/DL (32.0-36.0) Red Cell Distribution Width 12.8 % (11.6-14.8) Platelet Count 153 K/UL (150-450) Mean Platelet Volume 7.8 FL (6.5-10.1) Neutrophils (%) (Auto) % (45.0-75.0) Lymphocytes (%) (Auto) % (20.0-45.0) Monocytes (%) (Auto) % (1.0-10.0) Eosinophils (%) (Auto) % (0.0-3.0) Basophils (%) (Auto) % (0.0-2.0) Activated Partial Thromboplast Time 90 SEC (23-33) Sodium Level 138 MMOL/L (136-145) Potassium Level 5.4 MMOL/L (3.5-5.1) Chloride Level 106 MMOL/L (98-107) Carbon Dioxide Level 22 MMOL/L (21-32) Anion Gap 10 mmol/L (5-15) Blood Urea Nitrogen 36 mg/dL (7-18) Creatinine 1.5 MG/DL (0.55-1.30) Estimat Glomerular Filtration Rate 39.6 mL/min (>60) Glucose Level 95 MG/DL (74-106) Calcium Level 8.7 MG/DL (8.5-10.1) Height (Feet): 5 Height (Inches): 2.00 Weight (Pounds): 109 Objective GeN: Nad HEENT: PERRL/EOMI Neck: supple Cardiovascular: regular rhythm Respiratory/Chest: normal breath sounds Abdomen: non tender, soft Extremities: non-tender Elliot Mayberry MD Jan 13, 2021 06:30
--- NOTE | 2021-01-13 06:45 | NUR ---
NURSE NOTES: Seen by Dr. Mayberry, made him aware of hgb- 8.5. Made him aware of pt current status. Refer to Dr. montero regarding the potassium 5.4. LVM no response yet.
--- NOTE | 2021-01-13 07:05 | NUR ---
NURSE HAND-OFF REPORT: Important Events on Shift: pt is guarded, po2- 272.3- Dr. Miner aware, pt on BIPAP 12/5, low o2 fio2-30%- 02 sat- 100%, Pt on restraints for pulling devices, pt is confused alert x 1-2 drowsy. STAC high 140's with PVC's converted to SR after digoxin. Still waiting for placement for higher acuity Patient Status: Guarded Diet: Regular [facility] soft diet 1:1 feeder Pending Orders: None Pending Results/Labs: None Pending MD notification: None Latest Vital Signs: Temperature 97.5 , Pulse 86 , B/P 100 /56 , Respiratory Rate 24 , O2 SAT 100 , Bi-pap, O2 Flow Rate 2.0 . Vital Sign Comment: WNL EKG Rhythm: SR with BBB Rhythm change?: N Notified?: -Dr. Cr GUZMAN Response: Latest Joiner Fall Score: 45 Fall Risk: High Risk Safety Measures: Call light Within Reach, Bed Alarm Zone 2, Side Rails Side Rails x3, Bed position Low and Locked. Fall Precautions: Yellow Socks Yellow Gown Door Sign Patient Fall Education Report given to [MISSY Gayle].
--- NOTE | 2021-01-13 07:15 | NUR ---
NURSE NOTES: Received report MISSY Jefferson. Patient in bed resting, no active s/s cardiac distress noted at this time, Patient on BIPAP 12/5 Fio2 30% O2 sat 95%, due to ABG result, Patient on Wu Catheter draining well to gravity at this time. Patient IV on right hand 22G, right wrist 20G, asymptomatic, patent, intact. Endorsed patient awaiting to be transfer to [facility] or [facility] for cardiac cath, will follow up with immigration case manager. Bed in lowest position, side rails upx3, call light within reach, bed alarm on,Will continue to monitor.
--- NOTE | 2021-01-13 07:15 | NUR ---
RESPIRATORY NOTE: PT received on BiPAP with current settings.: 11/01 RR: 18, 30%. Alarms are on and audible. Foam Tape is in place and mask was re-adjusted to offset pressure. She has bilateral soft restraints securely in place. Will continue to closely monitor.
[2021-01-13] MEDS: Heparin 25,000u/D5W 500ml 500 ML IV SCH (07:35)
[2021-01-13 08:00] VITALS: BP 118/64
[2021-01-13] MEDS: Solu-MEDROL 40mg Inj IVP SCH (08:18)
[2021-01-13] MEDS: Aspirin EC 81mg tab ORAL SCH (08:18)
--- NOTE | 2021-01-13 08:19 | NUR ---
RESPIRATORY NOTE: ABG drawn at this time. Results reported to Nalini LOUIS.
[2021-01-13] MEDS: Pantoprazole Inj IVP SCH (08:24)
--- NOTE | 2021-01-13 08:50 | NUR ---
PT NOTE Advised by Nalini LOUIS to hold PT treatment today due to patient on Bi-pap, with SOB and increased HR. Will follow.
--- NOTE | 2021-01-13 10:55 | Infectious Diseases Prog Note ---
Assessment/Plan Assessment/Plan antibiotics : none A 1. pneumonia improving covid 19 negative 2. increased LFT 3. anemia P 1. continue off antibiotics 2. will follow up cultures Subjective ROS Limited/Unobtainable: Yes Allergies: Coded Allergies: No Known Allergies (Unverified , 01/06/21) Objective Last 24 Hour Vital Signs Date Time Temp Pulse Resp B/P (MAP) Pulse Ox O2 Delivery O2 Flow Rate FiO2 01/13/21 08:41 119 01/13/21 08:18 110 01/13/21 08:00 97.3 111 22 118/64 (82) 99 01/13/21 07:15 97 Bi-Pap 30 01/13/21 07:15 124 21 97 30 01/13/21 04:04 89 21 100 Bi-Pap 30 87 23 100 01/13/21 04:00 97.5 96 24 100/56 (71) 100 01/13/21 04:00 86 01/13/21 04:00 Nasal Cannula 2.0 01/13/21 03:05 95 01/13/21 02:53 103 01/13/21 02:48 111 01/13/21 02:14 112 24 100 30 01/13/21 00:00 87 01/13/21 00:00 Nasal Cannula 2.0 01/13/21 00:00 97.7 89 22 124/66 (85) 100 01/12/21 21:32 99 Nasal Cannula 2.0 28 01/12/21 20:15 72 101/70 01/12/21 20:00 88 01/12/21 20:00 98.1 90 23 127/98 (108) 100 01/12/21 20:00 Nasal Cannula 6.0 01/12/21 16:00 Nasal Cannula 6.0 01/12/21 16:00 97.9 86 22 142/82 (102) 100 01/12/21 16:00 87 01/12/21 12:00 82 01/12/21 12:00 Nasal Cannula 6.0 01/12/21 12:00 97.3 87 20 132/69 (90) 99 Height (Feet): 5 Height (Inches): 2.00 Weight (Pounds): 109 Respiratory/Chest: lungs clear Cardiovascular: normal rate, regular rhythm, no gallop/murmur Abdomen: soft, non tender Extremities: no edema Laboratory Tests Test 01/12/21 21:00 01/13/21 04:00 01/13/21 08:19 Arterial Blood pH 7.274 (7.350-7.450) 7.294 (7.350-7.450) Arterial Blood Partial Pressure CO2 54.5 mmHg (35.0-45.0) H 49.4 mmHg (35.0-45.0) H Arterial Blood Partial Pressure O2 272.3 mmHg (75.0-100.0) H 77.9 mmHg (75.0-100.0) Arterial Blood HCO3 24.7 mmol/L (22.0-26.0) 23.4 mmol/L (22.0-26.0) Arterial Blood Oxygen Saturation 98.9 % (95-100) 94.1 % (95-100) L Arterial Blood Base Excess -2.3 (-2-2) L -3.2 (-2-2) L Mo Test Positive Positive White Blood Count 6.2 K/UL (4.8-10.8) Red Blood Count 2.85 M/UL (4.20-5.40) L Hemoglobin 8.6 G/DL (12.0-16.0) L Hematocrit 27.2 % (37.0-47.0) L Mean Corpuscular Volume 95 FL (80-99) Mean Corpuscular Hemoglobin 30.0 PG (27.0-31.0) Mean Corpuscular Hemoglobin Concent 31.4 G/DL (32.0-36.0) L Red Cell Distribution Width 12.8 % (11.6-14.8) Platelet Count 153 K/UL (150-450) Mean Platelet Volume 7.8 FL (6.5-10.1) Neutrophils (%) (Auto) % (45.0-75.0) Lymphocytes (%) (Auto) % (20.0-45.0) Monocytes (%) (Auto) % (1.0-10.0) Eosinophils (%) (Auto) % (0.0-3.0) Basophils (%) (Auto) % (0.0-2.0) Differential Total Cells Counted 100 Neutrophils % (Manual) 62 % (45-75) Lymphocytes % (Manual) 19 % (20-45) L Monocytes % (Manual) 15 % (1-10) H Eosinophils % (Manual) 0 % (0-3) Basophils % (Manual) 0 % (0-2) Band Neutrophils 4 % (0-8) Platelet Estimate Adequate Platelet Morphology Normal Hypochromasia 1+ Activated Partial Thromboplast Time 90 SEC (23-33) H Sodium Level 138 MMOL/L (136-145) Potassium Level 5.4 MMOL/L (3.5-5.1) H Chloride Level 106 MMOL/L (98-107) Carbon Dioxide Level 22 MMOL/L (21-32) Anion Gap 10 mmol/L (5-15) Blood Urea Nitrogen 36 mg/dL (7-18) H Creatinine 1.5 MG/DL (0.55-1.30) H Estimat Glomerular Filtration Rate 39.6 mL/min (>60) Glucose Level 95 MG/DL (74-106) Calcium Level 8.7 MG/DL (8.5-10.1) Current Medications Medications (Trade) Dose Ordered Sig/Lexi Route PRN Reason Start Time Stop Time Status Last Admin Dose Admin Acetaminophen (Tylenol) 650 mg Q6H PRN ORAL Mild Pain (Pain Scale 1-3) 01/06/21 16:15 02/05/21 16:14 01/06/21 16:46 Albuterol/ Ipratropium (Albuterol/ Ipratropium) 3 ml Q6HRT PRN HHN Shortness of Breath 01/13/21 03:30 01/18/21 03:29 01/13/21 04:04 Aspirin (Ecotrin) 81 mg DAILY ORAL 01/08/21 13:45 02/22/21 13:44 01/12/21 09:39 Atorvastatin Calcium (Lipitor) 80 mg BEDTIME ORAL 01/08/21 21:00 04/08/21 20:59 01/12/21 20:16 Clopidogrel Bisulfate (Plavix) 75 mg DAILY ORAL 01/10/21 09:00 02/09/21 08:59 01/12/21 09:40 Dextrose/Sodium Chloride 1,000 ml @ 75 mls/hr [id number] IV 01/13/21 03:00 02/12/21 02:59 01/13/21 02:48 Digoxin (Lanoxin) 0.25 mg DAILY IVP 01/13/21 09:00 04/13/21 08:59 01/13/21 08:18 Furosemide (Lasix) 20 mg DAILY IV 01/13/21 09:00 02/12/21 08:59 01/13/21 08:18 Heparin Sodium/ Dextrose 500 ml @ 16.81 mls/ hr ADJUST PER PROTOCOL IV 01/11/21 16:15 02/10/21 16:14 01/13/21 07:35 Methylprednisolone Sodium Succinate (Solu-MEDROL) 20 mg DAILY IVP 01/13/21 09:00 04/13/21 08:59 01/13/21 08:18 Metoprolol Tartrate (Lopressor) 25 mg Q12HR ORAL 01/08/21 13:45 04/08/21 13:44 01/12/21 09:39 Pantoprazole (Protonix) 20 mg DAILY IVP 01/11/21 09:00 02/10/21 08:59 01/13/21 08:24 Emmie Dickson MD Jan 13, 2021 10:55
--- NOTE | 2021-01-13 11:17 | Pulmonology Progress Note ---
Subjective ROS Limited/Unobtainable: Yes Interval Events: None major reported per nursing Constitutional: Denies: fever HEENT: Repors: no symptoms Respiratory: Reports: shortness of breath Cardiovascular: Reports: no symptoms Gastrointestinal/Abdominal: Reports: no symptoms Genitourinary: Reports: no symptoms Allergies: Coded Allergies: No Known Allergies (Unverified , 01/06/21) Objective Last 24 Hour Vital Signs Date Time Temp Pulse Resp B/P (MAP) Pulse Ox O2 Delivery O2 Flow Rate FiO2 01/13/21 08:41 119 01/13/21 08:18 110 01/13/21 08:00 97.3 111 22 118/64 (82) 99 01/13/21 07:15 97 Bi-Pap 30 01/13/21 07:15 124 21 97 30 01/13/21 04:04 89 21 100 Bi-Pap 30 87 23 100 01/13/21 04:00 97.5 96 24 100/56 (71) 100 01/13/21 04:00 86 01/13/21 04:00 Nasal Cannula 2.0 01/13/21 03:05 95 01/13/21 02:53 103 01/13/21 02:48 111 01/13/21 02:14 112 24 100 30 01/13/21 00:00 87 01/13/21 00:00 Nasal Cannula 2.0 01/13/21 00:00 97.7 89 22 124/66 (85) 100 01/12/21 21:32 99 Nasal Cannula 2.0 28 01/12/21 20:15 72 101/70 01/12/21 20:00 88 01/12/21 20:00 98.1 90 23 127/98 (108) 100 01/12/21 20:00 Nasal Cannula 6.0 01/12/21 16:00 Nasal Cannula 6.0 01/12/21 16:00 97.9 86 22 142/82 (102) 100 01/12/21 16:00 87 01/12/21 12:00 82 01/12/21 12:00 Nasal Cannula 6.0 01/12/21 12:00 97.3 87 20 132/69 (90) 99 Intake and Output 01/12/21 01/13/21 19:00 07:00 Intake Total 326.72 ml 1043.10 ml Output Total 600 ml 900 ml Balance -273.28 ml 143.10 ml Intake Oral 50 ml 50 ml IV Total 276.72 ml 993.10 ml Output Urine Total 600 ml 900 ml General Appearance: no acute distress HEENT: atraumatic Respiratory: accessory muscle use, crackles/rales Cardiovascular: regular rhythm, tachycardia Abdomen: soft, non tender Laboratory Tests 01/12/21 21:00: Arterial Blood pH 7.274L, Arterial Blood Partial Pressure CO2 54.5H, Arterial Blood Partial Pressure O2 272.3H, Arterial Blood HCO3 24.7, Arterial Blood Oxygen Saturation 98.9, Arterial Blood Base Excess -2.3L, Mo Test Positive 01/13/21 04:00: White Blood Count 6.2, Red Blood Count 2.85L, Hemoglobin 8.6L, Hematocrit 27.2L, Mean Corpuscular Volume 95, Mean Corpuscular Hemoglobin 30.0, Mean Corpuscular Hemoglobin Concent 31.4L, Red Cell Distribution Width 12.8, Platelet Count 153, Mean Platelet Volume 7.8, Neutrophils (%) (Auto) , Lymphocytes (%) (Auto) , Monocytes (%) (Auto) , Eosinophils (%) (Auto) , Basophils (%) (Auto) , Differential Total Cells Counted 100, Neutrophils % (Manual) 62, Lymphocytes % (Manual) 19L, Monocytes % (Manual) 15H, Eosinophils % (Manual) 0, Basophils % (Manual) 0, Band Neutrophils 4, Platelet Estimate Adequate, Platelet Morphology Normal, Hypochromasia 1+, Activated Partial Thromboplast Time 90H, Sodium Level 138, Potassium Level 5.4H, Chloride Level 106, Carbon Dioxide Level 22, Anion Gap 10, Blood Urea Nitrogen 36H, Creatinine 1.5H, Estimat Glomerular Filtration Rate 39.6, Glucose Level 95, Calcium Level 8.7 01/13/21 08:19: Arterial Blood pH 7.294L, Arterial Blood Partial Pressure CO2 49.4H, Arterial Blood Partial Pressure O2 77.9, Arterial Blood HCO3 23.4, Arterial Blood Oxygen Saturation 94.1L, Arterial Blood Base Excess -3.2L, Mo Test Positive Current Medications Medications (Trade) Dose Ordered Sig/Lexi Route PRN Reason Start Time Stop Time Status Last Admin Dose Admin Acetaminophen (Tylenol) 650 mg Q6H PRN ORAL Mild Pain (Pain Scale 1-3) 01/06/21 16:15 02/05/21 16:14 01/06/21 16:46 Albuterol/ Ipratropium (Albuterol/ Ipratropium) 3 ml Q6HRT PRN HHN Shortness of Breath 01/13/21 03:30 01/18/21 03:29 01/13/21 04:04 Aspirin (Ecotrin) 81 mg DAILY ORAL 01/08/21 13:45 02/22/21 13:44 01/12/21 09:39 Atorvastatin Calcium (Lipitor) 80 mg BEDTIME ORAL 01/08/21 21:00 04/08/21 20:59 01/12/21 20:16 Cefepime HCl 2 gm/ Dextrose 55 ml @ 110 mls/hr Q24H IVPB 01/13/21 12:00 01/20/21 11:59 Clopidogrel Bisulfate (Plavix) 75 mg DAILY ORAL 01/10/21 09:00 02/09/21 08:59 01/12/21 09:40 Dextrose/Sodium Chloride 1,000 ml @ 75 mls/hr [id number] IV 01/13/21 03:00 02/12/21 02:59 01/13/21 02:48 Digoxin (Lanoxin) 0.25 mg DAILY IVP 01/13/21 09:00 04/13/21 08:59 01/13/21 08:18 Furosemide (Lasix) 20 mg DAILY IV 01/13/21 09:00 02/12/21 08:59 01/13/21 08:18 Heparin Sodium/ Dextrose 500 ml @ 16.81 mls/ hr ADJUST PER PROTOCOL IV 01/11/21 16:15 02/10/21 16:14 01/13/21 07:35 Methylprednisolone Sodium Succinate (Solu-MEDROL) 20 mg DAILY IVP 01/13/21 09:00 04/13/21 08:59 01/13/21 08:18 Metoprolol Tartrate (Lopressor) 25 mg Q12HR ORAL 01/08/21 13:45 04/08/21 13:44 01/12/21 09:39 Pantoprazole (Protonix) 20 mg DAILY IVP 01/11/21 09:00 02/10/21 08:59 01/13/21 08:24 Assessment/Plan Assessment/Plan 1. Hypoxemic respiratory distress; improving -BiPAP overnight; switch to Venturi mask as ABG better - s/p dexamethasone (01/07-01/08); now on Solu-Medrol - Increased accessory muscle use -> ABG improving - Avoid bronchodilators given pulmonary edema 2. COVID-19 PCR negative (01/06) - off isolation 3. Pneumonia -On broad-spectrum antibiotics per primary MD 4. Elevated BNP - s/p Lasix in the ER - cardio following 5. Elevated D-dimer with tachycardia - On heparin drip for DVT prophylaxis -Venous duplex of legs negative for DVT 6. Elevated troponin - Noted plans for transfer to [facility] for cath -Transfer is approved, awaiting ICU bed at [facility] given elevated troponin & NSTEMI 7. NSTEMI - On heparin gtt + ASA + Plavix - seen by cardio The care for this patient was discussed with my supervising physician. Time spent for this case was approximately 31 minutes. Moo Emmanuel Jan 13, 2021 11:17
--- NOTE | 2021-01-13 11:49 | Consultation ---
Consult Note Consult Note I am asked to evaluate the patient at the request of Dr. Bowers for renal failure and electrolyte imbalances Day 7 of hospitalization here at [facility] Current conditions: Pneumonia, hypoxia Elevated LFTs Anemia COPD Troponin andrés to 11 Patient tachycardic, currently on BiPAP, somnolent. Labs reviewed. Medication list reviewed. 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
[2021-01-13 12:00] VITALS: BP 125/56
[2021-01-13] MEDS ORDERED: Sodium Polystyrene Sulfonate 15gm Powder ORAL SCH (12:15)
--- NOTE | 2021-01-13 12:45 | NUR ---
CASE MANAGEMENT:REVIEW 01/13/21 SI: NSTEMI. NSVT. AC/CHR CHF. COPD. SEVERE AORTIC VALVE STENOSIS 97.3 111 22 118/64 99% ON BIPAP 30% H/H-8.6/27.2 K+5.4 BUN+36 CR+1.5 IS: KAYEXALATE PO X1 IV DIGOXIN X2 NTG 1 PATCH Q24 HEPARIN GTT IV CEFEPIME Q24 IV SOLUMEDROL QD PROTONIX PO Q12 IV LASIX QD PLAVIX PO QD ASA PO QD LOPRESSOR PO Q12 : STEP DOWN UNIT DCP: FROM HOME PLAN: TRANSFER TO HIGHER LEVEL OF CARE ~ REFERRED TO [facility] AND [facility] FOR CARDIAC CATH...WAITING FOR AVAILABLE BED
[2021-01-13] MEDS: Nitroglycerin Patch 0.4mg TDERMAL SCH (12:56)
[2021-01-13] MEDS: Cefepime HCl 2 GM in D5W 55 ML IVPB SCH (12:59)
--- NOTE | 2021-01-13 14:22 | NUR ---
INSURANCE CLINICALS/REVIEW FAXED TO [facility]#[phone] fax#[phone] Addendum: 01/14/21 at 1031 by NABOR PERSAUD LVN LVN ROBBI SHAFER TY: [phone]
--- NOTE | 2021-01-13 14:23 | NUR ---
NURSE NOTES: Dr. Bowers made aware patient A.fib with RVR rate of 140s, per MD Digoxin 0.25 IV , transfer ICU for Cardizem trip, heparin drip. Patient already on heparin drip, order noted, entered, carried out.
[2021-01-13] MEDS ORDERED: dilTIAZem Premix 125mg/125ml 125 ML IVPB SCH (15:00)
--- NOTE | 2021-01-13 15:00 | NUR ---
NURSE NOTES: Per Dr. Bowers, Digoxin IVP for A.fib with RVR. Order noted, entered, carried out. Will continue to monitor.
[2021-01-13 16:00] VITALS: BP 101/63
--- NOTE | 2021-01-13 16:34 | NUR ---
Speech pathology Note (Bedside Dysphagia Evaluation) Cardiology repots reviewed. No intervention for NSTEMI, ICM, ,MR, TR at this time. Creatine 1.5 today. Remains elevated troponin, BNP with worsening pulmonary status. Over all prognosis appeared to be poor at this time. I will sing off from Speech/Swallow service at this time. Germán Nichols
--- NOTE | 2021-01-13 16:52 | General Progress Note ---
Subjective Allergies: Coded Allergies: No Known Allergies (Unverified , 01/06/21) Subjective nonverbal lethargic Objective Last 24 Hour Vital Signs Date Time Temp Pulse Resp B/P (MAP) Pulse Ox O2 Delivery O2 Flow Rate FiO2 01/13/21 16:00 Bi-pap 01/13/21 15:06 121 01/13/21 12:56 125/56 01/13/21 12:27 105 01/13/21 12:00 97.9 112 22 125/56 (79) 97 01/13/21 12:00 Bi-pap 01/13/21 08:41 119 01/13/21 08:18 110 01/13/21 08:00 97.3 111 22 118/64 (82) 99 01/13/21 08:00 Bi-pap 01/13/21 07:15 97 Bi-Pap 30 01/13/21 07:15 124 21 97 30 01/13/21 04:04 89 21 100 Bi-Pap 30 87 23 100 01/13/21 04:00 97.5 96 24 100/56 (71) 100 01/13/21 04:00 86 01/13/21 04:00 Nasal Cannula 2.0 01/13/21 03:05 95 01/13/21 02:53 103 01/13/21 02:48 111 01/13/21 02:14 112 24 100 30 01/13/21 00:00 87 01/13/21 00:00 Nasal Cannula 2.0 01/13/21 00:00 97.7 89 22 124/66 (85) 100 01/12/21 21:32 99 Nasal Cannula 2.0 28 01/12/21 20:15 72 101/70 01/12/21 20:00 88 01/12/21 20:00 98.1 90 23 127/98 (108) 100 01/12/21 20:00 Nasal Cannula 6.0 Intake and Output 01/12/21 01/13/21 19:00 07:00 Intake Total 326.72 ml 1043.10 ml Output Total 600 ml 900 ml Balance -273.28 ml 143.10 ml Intake Oral 50 ml 50 ml IV Total 276.72 ml 993.10 ml Output Urine Total 600 ml 900 ml Laboratory Tests 01/12/21 21:00: Arterial Blood pH 7.274L, Arterial Blood Partial Pressure CO2 54.5H, Arterial Blood Partial Pressure O2 272.3H, Arterial Blood HCO3 24.7, Arterial Blood Oxygen Saturation 98.9, Arterial Blood Base Excess -2.3L, Mo Test Positive 01/13/21 04:00: White Blood Count 6.2, Red Blood Count 2.85L, Hemoglobin 8.6L, Hematocrit 27.2L, Mean Corpuscular Volume 95, Mean Corpuscular Hemoglobin 30.0, Mean Corpuscular Hemoglobin Concent 31.4L, Red Cell Distribution Width 12.8, Platelet Count 153, Mean Platelet Volume 7.8, Neutrophils (%) (Auto) , Lymphocytes (%) (Auto) , Monocytes (%) (Auto) , Eosinophils (%) (Auto) , Basophils (%) (Auto) , Differential Total Cells Counted 100, Neutrophils % (Manual) 62, Lymphocytes % (Manual) 19L, Monocytes % (Manual) 15H, Eosinophils % (Manual) 0, Basophils % (Manual) 0, Band Neutrophils 4, Platelet Estimate Adequate, Platelet Morphology Normal, Hypochromasia 1+, Activated Partial Thromboplast Time 90H, Sodium Level 138, Potassium Level 5.4H, Chloride Level 106, Carbon Dioxide Level 22, Anion Gap 10, Blood Urea Nitrogen 36H, Creatinine 1.5H, Estimat Glomerular Filtration Rate 39.6, Glucose Level 95, Calcium Level 8.7 01/13/21 08:19: Arterial Blood pH 7.294L, Arterial Blood Partial Pressure CO2 49.4H, Arterial Blood Partial Pressure O2 77.9, Arterial Blood HCO3 23.4, Arterial Blood Oxygen Saturation 94.1L, Arterial Blood Base Excess -3.2L, Mo Test Positive Height (Feet): 5 Height (Inches): 2.00 Weight (Pounds): 109 General Appearance: combative Neck: supple Cardiovascular: tachycardia Respiratory/Chest: crackles/rales Abdomen: non tender, soft Extremities: non-tender Assessment/Plan Status: not improved Assessment/Plan: nstemi on medical tx, waiting for cardiac cath at [facility] or [facility] tachycardia better with iv digoxin dw cardio covid 19 negative ac copd exacerabation chf/cm htn cardiac arrhtemia cont iv abx on heparin drip dw pulmonary cardiology on the case left message to the son pt is critical Vinod Bowers MD Jan 13, 2021 16:52
--- NOTE | 2021-01-13 17:07 | NUR ---
NURSE NOTES: Per Dr. Hankins, he is on the case at this time. Per MD discontinued amiodarone, digoxin, Lasix. Order noted, entered, carried out. Will continue to monitor.
--- NOTE | 2021-01-13 17:30 | NUR ---
NURSE NOTES: Per Dr. Hankins, no more digoxin for the patient at this time, transfer patient to ICU to initiate amiodarone Drip. Order noted, enterd, CN made aware. Per MD discontinued Hep drip change to Lovenox, Dc Lasix dx Cardizem. Order noted ,entered. Clarified with Pharmacist, unable to administer amiodarone drip in ORI.
--- NOTE | 2021-01-13 17:41 | Cardiology Report ---
APPROVED REPORT EKG Measurement Heart [id number] <Conclusion> Atrial fibrillation with rapid ventricular response with premature ventricular or aberrantly conducted complexes Left axis deviation Right bundle branch block Inferior infarct, age undetermined Possible Anterolateral infarct, age undetermined Abnormal ECG
--- NOTE | 2021-01-13 18:06 | NUR ---
REMARKETING MANAGER NOTES SPOKE WITH DR. JAIMES IN REGARDS TO A HIGHER LEVEL OF CARE TRANSFER. PT REFERRED TO [facility] FOR TAVR PROCEDURE. SPOKE WITH MADELINE IN THE TRANSFER CENTER CLINICALS RECEIVED.[facility] WILL CONTACT THE FLOOR WITH UPDATES.
--- NOTE | 2021-01-13 18:49 | NUR ---
NURSE NOTES: Per Dr. Hankins, increase metoprolol to 50mg BID. order noted, entered, carried out.
--- NOTE | 2021-01-13 19:30 | NUR ---
NURSE NOTES: [facility] called for report. DR. Bowers made aware.
--- NOTE | 2021-01-13 19:38 | NUR ---
NURSE NOTES: Report received from MISSY Gayle. Observed pt lying in the bed. SR noted at this time. Afib rvr and SB in am shift noted. On bipap /, 30%. Pt lying in the bed, awake, confused. F/C intact, draining light dalila urine. IV on R H 22G. R W 20G, noted. Bed in the lowest position. Bed alarm on. Call light within reach. Side rails up x3. Will continue to monitor.
--- NOTE | 2021-01-13 19:38 | NUR ---
NURSE HAND-OFF REPORT: Important Events on Shift:possible transfer to [facility], Patient on BIPAP, A. fib with RVR 140s, now SR 80s Patient Status: guarded Diet: reg, on bipap at this time, unable to tolerate PO at this time Pending Orders: NA Pending Results/Labs:NA Pending MD notification: NA Latest Vital Signs: Temperature 97.3 , Pulse 113 , B/P 101 /63 , Respiratory Rate 22 , O2 SAT 97 , Bi-pap, O2 Flow Rate 2.0 . Vital Sign Comment: stable EKG Rhythm: Atrial Fibrillation Rhythm change?: Y Notified?: Y -Dr. Bowers, Dr. Cr GUZMAN Response: Latest Joiner Fall Score: 45 Fall Risk: High Risk Safety Measures: Call light Within Reach, Bed Alarm Zone 2, Side Rails Side Rails x3, Bed position Low and Locked. Fall Precautions: Yellow Socks Yellow Gown Door Sign Patient Fall Education Report given to MISSY West.
[2021-01-13 20:00] VITALS: BP 122/67
[2021-01-13] MEDS: Atorvastatin 80mg tab ORAL SCH (20:39)
[2021-01-13] MEDS: Metoprolol Tartrate 50mg tab ORAL SCH (20:40)
[2021-01-13] MEDS: Enoxaparin 60mg Inj SUBQ SCH (20:44)
[2021-01-13] MEDS ORDERED: 1/2 NS 1000ml IV ONE ×2 (21:22→21:50)
[2021-01-13] MEDS ORDERED: D5 1/2NS 1000ml IV ONE (21:22)
[2021-01-13] MEDS ORDERED: Tubing IV Secondary IV ONE (21:50)
[2021-01-13 22:44] LABS: APPEARANCE,URINE SLIGHTLY CLOUDY; BILIRUBIN, URINE NEGATIVE (NEGATIVE); COLOR,URINE PALE YELLOW; GLUCOSE, URINE (UA) NEGATIVE (NEGATIVE); KETONES,URINE NEGATIVE (NEGATIVE); LEUKOCYTE ESTERASE ,URINE 1+ (NEGATIVE); NITRITE,URINE NEGATIVE (NEGATIVE); PH,URINE 5 (4.5-8.0); PROTEIN,URINE 2+ (NEGATIVE); UROBILINOGEN,URINE NORMAL MG/DL (0.0-1.0)
[2021-01-14] VITALS: BP 131/71
--- NOTE | 2021-01-14 00:43 | NUR ---
NURSE NOTES: Pt tried to take bipap off at this time. Education done. No distress on gwen wrists. No other distress noted at this time. Will continue to monitor.
--- NOTE | 2021-01-14 03:59 | NUR ---
NURSE NOTES: Pt confused, non-compliant. Keeps trying to take off bipap and trying to get out of bed. Education given, reinforcement needed. On bipap 12/5, 30%, saturating at 95%. Bed bath given. Will continue to monitor.
[2021-01-14 04:00] VITALS: BP 139/77
[2021-01-14 04:31] LABS: BASOPHILS % (AUTO) 0.7 % (0.0-2.0); EOSINOPHILS % (AUTO) 0.1 % (0.0-3.0); HEMATOCRIT 25.3 % (37.0-47.0); HEMOGLOBIN 8.2 G/DL (12.0-16.0); LYMPHOCYTES % (AUTO) 6.2 % (20.0-45.0); MEAN CORPUSCULAR VOLUME 92 FL (80-99); MONOCYTES % (AUTO) 12.9 % (1.0-10.0); NEUTROPHILS % (AUTO) 80.1 % (45.0-75.0); PLATELET COUNT 176 K/UL (150-450); RED BLOOD COUNT 2.75 M/UL (4.20-5.40); RED CELL DISTRIBUTION WIDTH 12.5 % (11.6-14.8); WHITE BLOOD COUNT 7.8 K/UL (4.8-10.8)
[2021-01-14 04:56] LABS: CREATINE KINASE 323 U/L (26-308)
[2021-01-14 05:45] LABS: ALANINE AMINOTRANSFERASE 350 U/L (12-78); ALBUMIN 2.4 G/DL (3.4-5.0); ALBUMIN/GLOBULIN RATIO 0.7 (1.0-2.7); ALKALINE PHOSPHATASE 210 U/L (46-116); ANION GAP 10 mmol/L (5-15); ASPARTATE AMINO TRANSFERASE 161 U/L (15-37); BILIRUBIN,TOTAL 0.4 MG/DL (0.2-1.0); BLOOD UREA NITROGEN 42 mg/dL (7-18); CALCIUM 9.2 MG/DL (8.5-10.1); CARBON DIOXIDE 23 MMOL/L (21-32); CHLORIDE 107 MMOL/L (98-107); CHOLESTEROL 214 MG/DL (< 200); CREATININE 1.7 MG/DL (0.55-1.30); FERRITIN 1688 NG/ML (8-388); GAMMA GLUTAMYL TRANSPEPTIDASE 294 U/L (5-85); HDL CHOLESTEROL 84 MG/DL (40-60); LACTATE DEHYDROGENASE 449 U/L (81-234); PHOSPHORUS 3.8 MG/DL (2.5-4.9); POTASSIUM 4.8 MMOL/L (3.5-5.1); SODIUM 140 MMOL/L (136-145); TRIGLYCERIDES 69 MG/DL (30-150)
[2021-01-14 05:51] LABS: % IRON SATURATION 13 % (15-50); IRON 23 ug/dL (50-175); TOTAL IRON BINDING CAPACITY 175 ug/dL (250-450)
--- NOTE | 2021-01-14 06:55 | Hematology/Onc Progress Note ---
Assessment/Plan Assessment/Plan coaulopathy due to heparin gtt that has been started for nstemi anemia due to chronic disease, multifactorial --> hgb 8.2 nstemi on medical tx, [facility], continue hep gtt covid 19 negative ac copd exacerabation chf htn cardiac arrhtemia agitation cont iv abx iv decadrone on heparin drip add ativan fu labs dw pulmonary cardiology on the case Subjective Constitutional: Denies: no symptoms, chills, fever, malaise, weakness, other HEENT: Denies: no symptoms, eye pain, blurred vision, tearing, double vision, ear pain, ear discharge, nose pain, nose congestion, throat pain, throat swelling, mouth pain, mouth swelling, other Cardiovascular: Denies: no symptoms, chest pain, edema, irregular heart rate, lightheadedness, palpitations, syncope, other Respiratory: Denies: no symptoms, cough, shortness of breath, SOB with excertion, SOB at rest, sputum, wheezing, other Genitourinary: Denies: no symptoms, burning, discharge, frequency, flank pain, hematuria, incontinence, pain, urgency, other Neurologic/Psychiatric: Denies: no symptoms, anxiety, depressed, emotional problems, headache, numbness, paresthesia, pre-existing deficit, seizure, tingl ing, tremors, weakness, other Endocrine: Denies: no symptoms, excessive sweating, flushing, intolerance to cold, intolerance to heat, increased hunger, increased thirst, increased urine, unexplained weight gain, unexplained weight loss, other Hematologic/Lymphatic: Denies: no symptoms, anemia, easy bleeding, easy bruising, adenopathy, other Allergies: Coded Allergies: No Known Allergies (Unverified , 01/06/21) Subjective 01/11 labs reviewed, remains confused, meds noted, do rn, on hep gtt 01/12 pending placement at [facility], holding hep gtt as ptt 91 01/13 no night sweats, hgb 8.6, no hemolysis, no bleeding 01/14 confused, noncomplaint, attemptning to take off bipap, hgb 8.2 Objective Objective Current Medications Medications (Trade) Dose Ordered Sig/Lexi Route PRN Reason Start Time Stop Time Status Last Admin Dose Admin Acetaminophen (Tylenol) 650 mg Q6H PRN ORAL Mild Pain (Pain Scale 1-3) 01/06/21 16:15 02/05/21 16:14 01/06/21 16:46 Aspirin (Ecotrin) 81 mg DAILY ORAL 01/08/21 13:45 02/22/21 13:44 01/12/21 09:39 Atorvastatin Calcium (Lipitor) 80 mg BEDTIME ORAL 01/08/21 21:00 04/08/21 20:59 01/12/21 20:16 Cefepime HCl 2 gm/ Dextrose 55 ml @ 110 mls/hr Q24H IVPB 01/13/21 12:00 01/20/21 11:59 01/13/21 12:59 Clopidogrel Bisulfate (Plavix) 75 mg DAILY ORAL 01/10/21 09:00 02/09/21 08:59 01/12/21 09:40 Enoxaparin Sodium (Lovenox) 50 mg EVERY 12 HOURS SUBQ 01/13/21 21:00 04/13/21 20:59 01/13/21 20:44 Famotidine (Pepcid I.v.) 20 mg Q12HR IVP 01/13/21 12:00 02/12/21 11:59 01/13/21 20:43 Methylprednisolone Sodium Succinate (Solu-MEDROL) 20 mg DAILY IVP 01/13/21 09:00 04/13/21 08:59 01/13/21 08:18 Metoprolol Tartrate (Lopressor) 50 mg Q12HR ORAL 01/13/21 21:00 04/08/21 13:44 Nitroglycerin (Ntg) 1 patch Q24H TDERMAL 01/13/21 12:15 02/12/21 12:14 01/13/21 12:56 Pantoprazole (Protonix) 40 mg EVERY 12 HOURS ORAL 01/13/21 21:00 02/12/21 20:59 Last 24 Hour Vital Signs Date Time Temp Pulse Resp B/P (MAP) Pulse Ox O2 Delivery O2 Flow Rate FiO2 01/14/21 04:00 Bi-pap 01/14/21 04:00 82 01/14/21 04:00 98.4 79 25 139/77 (97) 100 01/14/21 03:30 84 22 99 30 01/14/21 00:00 Bi-pap 01/14/21 00:00 85 01/14/21 00:00 98.4 80 24 131/71 (91) 100 01/13/21 23:12 89 23 99 30 01/13/21 21:08 81 01/13/21 20:40 113 120/67 01/13/21 20:00 97.0 90 25 122/67 (85) 98 01/13/21 20:00 Bi-pap 01/13/21 20:00 84 30 99 30 01/13/21 19:30 Bi-Pap 01/13/21 16:00 97.3 99 22 101/63 (76) 97 01/13/21 16:00 Bi-pap 01/13/21 16:00 113 01/13/21 15:06 121 01/13/21 13:20 111 30 97 30 01/13/21 12:56 125/56 01/13/21 12:27 105 01/13/21 12:00 97.9 112 22 125/56 (79) 97 01/13/21 12:00 Bi-pap 01/13/21 08:41 119 01/13/21 08:18 110 01/13/21 08:00 97.3 111 22 118/64 (82) 99 01/13/21 08:00 Bi-pap 01/13/21 07:15 97 Bi-Pap 30 01/13/21 07:15 124 21 97 30 01/13/21 04:04 89 21 100 Bi-Pap 30 87 23 100 01/13/21 04:00 97.5 96 24 100/56 (71) 100 01/13/21 04:00 86 01/13/21 04:00 Nasal Cannula 2.0 01/13/21 03:05 95 01/13/21 02:53 103 01/13/21 02:48 111 01/13/21 02:14 112 24 100 30 01/13/21 00:00 87 01/13/21 00:00 Nasal Cannula 2.0 01/13/21 00:00 97.7 89 22 124/66 (85) 100 01/12/21 21:32 99 Nasal Cannula 2.0 28 01/12/21 20:15 72 101/70 01/12/21 20:00 88 01/12/21 20:00 98.1 90 23 127/98 (108) 100 01/12/21 20:00 Nasal Cannula 6.0 01/12/21 16:00 Nasal Cannula 6.0 01/12/21 16:00 97.9 86 22 142/82 (102) 100 01/12/21 16:00 87 01/12/21 12:00 82 01/12/21 12:00 Nasal Cannula 6.0 01/12/21 12:00 97.3 87 20 132/69 (90) 99 01/12/21 09:39 85 114/66 01/12/21 08:48 85 20 114/66 95 01/12/21 08:18 85 22 118/70 99 01/12/21 08:00 Nasal Cannula 6.0 01/12/21 08:00 97.5 89 20 123/75 (91) 100 01/12/21 08:00 83 01/12/21 07:00 100 Nasal Cannula 4.0 36 Intake and Output 01/13/21 01/14/21 19:00 07:00 Output Total 600 ml 550 ml Balance -600 ml -550 ml Output Urine Total 600 ml 550 ml # Bowel Movements 1 1 Labs Test 01/11/21 09:35 01/11/21 10:00 01/11/21 11:05 01/11/21 14:55 Arterial Blood pH 7.166 (7.350-7.450) Arterial Blood Partial Pressure CO2 51.0 mmHg (35.0-45.0) Arterial Blood Partial Pressure O2 133.5 mmHg (75.0-100.0) Arterial Blood HCO3 18.0 mmol/L (22.0-26.0) Arterial Blood Oxygen Saturation 97.8 % (95-100) Arterial Blood Base Excess -10.3 (-2-2) Mo Test Positive White Blood Count 7.3 K/UL (4.8-10.8) Red Blood Count 3.11 M/UL (4.20-5.40) Hemoglobin 9.2 G/DL (12.0-16.0) Hematocrit 29.6 % (37.0-47.0) Mean Corpuscular Volume 95 FL (80-99) Mean Corpuscular Hemoglobin 29.5 PG (27.0-31.0) Mean Corpuscular Hemoglobin Concent 31.0 G/DL (32.0-36.0) Red Cell Distribution Width 12.8 % (11.6-14.8) Platelet Count 191 K/UL (150-450) Mean Platelet Volume 7.5 FL (6.5-10.1) Neutrophils (%) (Auto) 80.5 % (45.0-75.0) Lymphocytes (%) (Auto) 4.6 % (20.0-45.0) Monocytes (%) (Auto) 12.3 % (1.0-10.0) Eosinophils (%) (Auto) 0.1 % (0.0-3.0) Basophils (%) (Auto) 2.5 % (0.0-2.0) D-Dimer 4.24 mg/L FEU (0.00-0.49) Activated Partial Thromboplast Time 118 SEC (23-33) Test 01/11/21 21:35 01/12/21 04:02 01/12/21 21:00 01/13/21 04:00 Activated Partial Thromboplast Time 92 SEC (23-33) 94 SEC (23-33) 90 SEC (23-33) Arterial Blood pH 7.274 (7.350-7.450) Arterial Blood Partial Pressure CO2 54.5 mmHg (35.0-45.0) Arterial Blood Partial Pressure O2 272.3 mmHg (75.0-100.0) Arterial Blood HCO3 24.7 mmol/L (22.0-26.0) Arterial Blood Oxygen Saturation 98.9 % (95-100) Arterial Blood Base Excess -2.3 (-2-2) Mo Test Positive White Blood Count 6.2 K/UL (4.8-10.8) Red Blood Count 2.85 M/UL (4.20-5.40) Hemoglobin 8.6 G/DL (12.0-16.0) Hematocrit 27.2 % (37.0-47.0) Mean Corpuscular Volume 95 FL (80-99) Mean Corpuscular Hemoglobin 30.0 PG (27.0-31.0) Mean Corpuscular Hemoglobin Concent 31.4 G/DL (32.0-36.0) Red Cell Distribution Width 12.8 % (11.6-14.8) Platelet Count 153 K/UL (150-450) Mean Platelet Volume 7.8 FL (6.5-10.1) Neutrophils (%) (Auto) % (45.0-75.0) Lymphocytes (%) (Auto) % (20.0-45.0) Monocytes (%) (Auto) % (1.0-10.0) Eosinophils (%) (Auto) % (0.0-3.0) Basophils (%) (Auto) % (0.0-2.0) Differential Total Cells Counted 100 Neutrophils % (Manual) 62 % (45-75) Lymphocytes % (Manual) 19 % (20-45) Monocytes % (Manual) 15 % (1-10) Eosinophils % (Manual) 0 % (0-3) Basophils % (Manual) 0 % (0-2) Band Neutrophils 4 % (0-8) Platelet Estimate Adequate Platelet Morphology Normal Hypochromasia 1+ Sodium Level 138 MMOL/L (136-145) Potassium Level 5.4 MMOL/L (3.5-5.1) Chloride Level 106 MMOL/L (98-107) Carbon Dioxide Level 22 MMOL/L (21-32) Anion Gap 10 mmol/L (5-15) Blood Urea Nitrogen 36 mg/dL (7-18) Creatinine 1.5 MG/DL (0.55-1.30) Estimat Glomerular Filtration Rate 39.6 mL/min (>60) Glucose Level 95 MG/DL (74-106) Calcium Level 8.7 MG/DL (8.5-10.1) Test 01/13/21 08:19 01/13/21 22:00 01/14/21 03:20 Arterial Blood pH 7.294 (7.350-7.450) Arterial Blood Partial Pressure CO2 49.4 mmHg (35.0-45.0) Arterial Blood Partial Pressure O2 77.9 mmHg (75.0-100.0) Arterial Blood HCO3 23.4 mmol/L (22.0-26.0) Arterial Blood Oxygen Saturation 94.1 % (95-100) Arterial Blood Base Excess -3.2 (-2-2) Mo Test Positive Urine Color Pale yellow Urine Appearance Slightly cloudy Urine pH 5 (4.5-8.0) Urine Specific [place] 1.015 (1.005-1.035) Urine Protein 2+ (NEGATIVE) Urine Glucose (UA) Negative (NEGATIVE) Urine Ketones Negative (NEGATIVE) Urine Blood 5+ (NEGATIVE) Urine Nitrite Negative (NEGATIVE) Urine Bilirubin Negative (NEGATIVE) Urine Urobilinogen Normal MG/DL (0.0-1.0) Urine Leukocyte Esterase 1+ (NEGATIVE) Urine RBC Tntc /HPF (0 - 2) Urine WBC 0-2 /HPF (0 - 2) Urine Squamous Epithelial Cells Occasional /LPF Urine Amorphous Sediment Moderate /LPF (NONE) Urine Bacteria Many /HPF (NONE) White Blood Count 7.8 K/UL (4.8-10.8) Red Blood Count 2.75 M/UL (4.20-5.40) Hemoglobin 8.2 G/DL (12.0-16.0) Hematocrit 25.3 % (37.0-47.0) Mean Corpuscular Volume 92 FL (80-99) Mean Corpuscular Hemoglobin 29.7 PG (27.0-31.0) Mean Corpuscular Hemoglobin Concent 32.3 G/DL (32.0-36.0) Red Cell Distribution Width 12.5 % (11.6-14.8) Platelet Count 176 K/UL (150-450) Mean Platelet Volume 7.4 FL (6.5-10.1) Neutrophils (%) (Auto) 80.1 % (45.0-75.0) Lymphocytes (%) (Auto) 6.2 % (20.0-45.0) Monocytes (%) (Auto) 12.9 % (1.0-10.0) Eosinophils (%) (Auto) 0.1 % (0.0-3.0) Basophils (%) (Auto) 0.7 % (0.0-2.0) Sodium Level 140 MMOL/L (136-145) Potassium Level 4.8 MMOL/L (3.5-5.1) Chloride Level 107 MMOL/L (98-107) Carbon Dioxide Level 23 MMOL/L (21-32) Anion Gap 10 mmol/L (5-15) Blood Urea Nitrogen 42 mg/dL (7-18) Creatinine 1.7 MG/DL (0.55-1.30) Estimat Glomerular Filtration Rate 34.3 mL/min (>60) Glucose Level 153 MG/DL (74-106) Hemoglobin A1c 5.6 % (4.3-6.0) Lactic Acid Level 1.10 mmol/L (0.4-2.0) Uric Acid 13.0 MG/DL (2.6-7.2) Calcium Level 9.2 MG/DL (8.5-10.1) Phosphorus Level 3.8 MG/DL (2.5-4.9) Magnesium Level 2.2 MG/DL (1.8-2.4) Iron Level 23 ug/dL (50-175) Total Iron Binding Capacity 175 ug/dL (250-450) Percent Iron Saturation 13 % (15-50) Unsaturated Iron Binding 152 ug/dL (112-346) Ferritin 1688 NG/ML (8-388) Total Bilirubin 0.4 MG/DL (0.2-1.0) Gamma Glutamyl Transpeptidase 294 U/L (5-85) Aspartate Amino Transf (AST/SGOT) 161 U/L (15-37) Alanine Aminotransferase (ALT/SGPT) 350 U/L (12-78) Alkaline Phosphatase 210 U/L (46-116) Lactate Dehydrogenase 449 U/L (81-234) Total Creatine Kinase 323 U/L (26-308) Troponin I 9.217 ng/mL (0.000-0.056) C-Reactive Protein, Quantitative 8.3 mg/dL (0.00-0.90) Pro-B-Type Natriuretic Peptide > 76675 pg/mL (0-125) Total Protein 6.0 G/DL (6.4-8.2) Albumin 2.4 G/DL (3.4-5.0) Globulin 3.6 g/dL Albumin/Globulin Ratio 0.7 (1.0-2.7) Triglycerides Level 69 MG/DL (30-150) Cholesterol Level 214 MG/DL (< 200) LDL Cholesterol 113 mg/dL (<100) HDL Cholesterol 84 MG/DL (40-60) Cholesterol/HDL Ratio 2.5 (3.3-4.4) Lipase 104 U/L (73-393) Vitamin B12 Level 1285 PG/ML (193-986) Folate 24.1 NG/ML (8.6-58.9) Thyroid Stimulating Hormone (TSH) 0.183 uiU/mL (0.358-3.740) Digoxin Level 2.7 NG/ML (0.9-2.0) Height (Feet): 5 Height (Inches): 2.00 Weight (Pounds): 109 Objective GeN: Nad HEENT: PERRL/EOMI Neck: supple Cardiovascular: regular rhythm Respiratory/Chest: normal breath sounds Abdomen: non tender, soft Extremities: non-tender Elliot Mayberry MD Jan 14, 2021 06:55
--- NOTE | 2021-01-14 07:31 | NUR ---
NURSE HAND-OFF REPORT: Important Events on Shift: On bipap /, 30%. Patient Status: confused, non-compliant Diet: regular mech soft. Pending Orders: pending transfer Pending Results/Labs:[] Pending MD notification:[] Latest Vital Signs: Temperature 98.4 , Pulse 82 , B/P 139 /77 , Respiratory Rate 25 , O2 SAT 100 , Bi-pap, O2 Flow Rate 2.0 . Vital Sign Comment: [] EKG Rhythm: Sinus Rhythm Rhythm change?: N MD Notified?: Y -Dr. Bowers, Dr. Cr GUZMAN Response: Latest Joiner Fall Score: 45 Fall Risk: High Risk Safety Measures: Call light Within Reach, Bed Alarm Zone 2, Side Rails Side Rails x3, Bed position Low and Locked. Fall Precautions: Yellow Socks Yellow Gown Door Sign Patient Fall Education Report given to MISSY Bahena.
--- NOTE | 2021-01-14 07:50 | NUR ---
NURSE NOTES: Pt received from Brett RN. Pt on bopap 12 97% sat. bilateral soft wrist restraints in place, pulses present and palpable. no redness or swelling noted. Bed low and locked, call light near hand however not able to demonstrate use at this time.
--- NOTE | 2021-01-14 07:51 | NUR ---
RD ASSESSMENT & RECOMMENDATIONS SEE CARE ACTIVITY FOR COMPLETE ASSESSMENT DAILY ESTIMATED NEEDS: Needs based on cardiac, pulmonary/ 52kg 25-30 kcals/kg 7803-9989 total kcals 1-1.5 g protein/kg 52-78 g total protein 25-30 mL/kg 9069-2878 total fluid mLs NUTRITION DIAGNOSIS: Altered nutrition related lab values R/T cardiac Hx including NSTEMI, CHF, HTN as evidenced by elev elev troponin (19.913), elev BNP (>3500), elev BPs. CURRENT DIET:REGULAR, mech soft ground PO DIET RECOMMENDATIONS: W/ poor PO intake, rec liberalized regular diet/ texture per BUTT SAWYER PARENTERAL NUTRITION RECOMMENDATIONS: TPN Comment: With continued bipap and poor po intake, rec TPN to meet est nutritional needs. ADDITIONAL RECOMMENDATIONS: * Calibrated bedscale wt * BUTT SAWYER eval for appropriate texture- now on bipap * Ensure Enlive TID w/ meals (350kcal/20g prot each) * W/ PO intake consistently >50%, rec LOW NA diet. * Accuchecks for possible hypoglycemia, 0% intake on bipap. Consider D5
[2021-01-14 08:00] VITALS: BP 133/71
[2021-01-14] MEDS ORDERED: Omnipaque-300 100ml vial INJ PRN (08:00)
--- NOTE | 2021-01-14 08:47 | NUR ---
RESPIRATORY NOTES Based on ABG results, PT has been removed from bipap and placed on 3L NC. PT does not exhibit any current signs of respiratory distress - SaO2 100%. RN Shruti aware. Will continue to monitor.
[2021-01-14] MEDS: Aspirin EC 81mg tab ORAL SCH ×2 (09:00→09:30)
--- NOTE | 2021-01-14 09:15 | NUR ---
TRANSFER UPDATE CALLED [facility] T: [phone] AND SPOKE WITH JÚNIOR CALLEJAS THEIR PHYSICIAN HAS BEEN TRYING TO REACH DR STEVEN SINCE YESTERDAY EVENING BUT KEPT GETTING A VOICEMAIL MESSAGE [facility] PHYSICIAN ALREADY SPOKE WITH DR JAIMES BUT ALSO NEEDS TO SPEAK WITH DR STEVEN Addendum: 01/14/21 at 1006 by NABOR PERSAUD LVN LVN RECEIVED CALL FROM WILLIAM AT [facility] REQUESTING A HARD COPY AUTHORIZATION FROM INSURANCE Addendum: 01/14/21 at 1031 by NABOR PERSAUD LVN LVN CALLED NURSE [employer]BESTOS REMOVAL WORKER ROWAN HARRIS REGARDING [facility]'S REQUEST FOR AUTHORIZATION WAITING FOR RETURN CALL FROM SONI Addendum: 01/14/21 at 1107 by NABOR PERSAUD LVN LVN SECOND VMM LEFT FOR ASBESTOS REMOVAL WORKER SONI REQUESTING HARD COPY AUTHORIZATION BE FAXED TO [facility] Addendum: 01/14/21 at 1331 by NABOR PERSAUD LVN LVN RECEIVED CALL FROM MARCELINO AT [facility] VERIFICATION UNIT (T:[phone]) EXPLAINED THAT TWO MESSAGES HAVE BEEN LEFT FOR SONI @ [facility] AND ONE MESSAGE FOR DARRON AT [facility] PROVIDED MARCELINO WITH DARRON'S PHONE NUMBER . WAITING FOR AUTHORIZATION Addendum: 01/14/21 at 1334 by NABOR PERSAUD LVN LVN FAXED ABG RESULTS TO [facility] PER VINI'S REQUEST Addendum: 01/14/21 at 1408 by NABOR PERSAUD LVN LVN MARLENI ADAMS [facility], AUTHORIZATION HAS TO COME FROM [facility] ([facility]) SPOKE WITH SONI AT [facility] WHO STATED [facility] IS NOT ONE OF THEIR CONTRACTED HOSPITALS SONI IS GOING TO SPEAK WITH HIS DIRECTOR [employer] REGARDING TRANSFER FOR TAVR CONTRACTED HOSPITALS ARE [facility], [facility] AND [facility] TO NAME A FEW [facility] TRANSF[facility] IS NOT AN OPTION AT THIS TIME Addendum: 01/14/21 at 1509 by NABOR PERSAUD LVN LVN RECEIVED CALL FROM SONI WITH [facility] HE IS CURRENTLY WORKING ON A BED AT [facility] IS STILL CURRENTLY NOT AN OPTION AT THIS TIME
--- NOTE | 2021-01-14 09:29 | General Progress Note ---
Subjective Allergies: Coded Allergies: No Known Allergies (Unverified , 01/06/21) Subjective doing ok more awake Objective Last 24 Hour Vital Signs Date Time Temp Pulse Resp B/P (MAP) Pulse Ox O2 Delivery O2 Flow Rate FiO2 01/14/21 08:00 97.9 86 22 133/71 (91) 100 01/14/21 04:00 Bi-pap 01/14/21 04:00 82 01/14/21 04:00 98.4 79 25 139/77 (97) 100 01/14/21 03:30 84 22 99 30 01/14/21 00:00 Bi-pap 01/14/21 00:00 85 01/14/21 00:00 98.4 80 24 131/71 (91) 100 01/13/21 23:12 89 23 99 30 01/13/21 21:08 81 01/13/21 20:40 113 120/67 01/13/21 20:00 97.0 90 25 122/67 (85) 98 01/13/21 20:00 Bi-pap 01/13/21 20:00 84 30 99 30 01/13/21 19:30 Bi-Pap 01/13/21 16:00 97.3 99 22 101/63 (76) 97 01/13/21 16:00 Bi-pap 01/13/21 16:00 113 01/13/21 15:06 121 01/13/21 13:20 111 30 97 30 01/13/21 12:56 125/56 01/13/21 12:27 105 01/13/21 12:00 97.9 112 22 125/56 (79) 97 01/13/21 12:00 Bi-pap Intake and Output 01/13/21 01/14/21 19:00 07:00 Output Total 600 ml 550 ml Balance -600 ml -550 ml Output Urine Total 600 ml 550 ml # Bowel Movements 1 1 Laboratory Tests 01/13/21 22:00: Urine Color Pale yellow, Urine Appearance Slightly cloudy, Urine pH 5, Urine Specific [place] 1.015, Urine Protein 2+H, Urine Glucose (UA) Negative, Urine Ketones Negative, Urine Blood 5+H, Urine Nitrite Negative, Urine Bilirubin Negative, Urine Urobilinogen Normal, Urine Leukocyte Esterase 1+H, Urine RBC TntcH, Urine WBC 0-2, Urine Squamous Epithelial Cells Occasional, Urine Amorphous Sediment ModerateH, Urine Bacteria ManyH 01/14/21 03:20: White Blood Count 7.8, Red Blood Count 2.75L, Hemoglobin 8.2L, Hematocrit 25.3L, Mean Corpuscular Volume 92, Mean Corpuscular Hemoglobin 29.7, Mean Corpuscular Hemoglobin Concent 32.3, Red Cell Distribution Width 12.5, Platelet Count 176, Mean Platelet Volume 7.4, Neutrophils (%) (Auto) 80.1H, Lymphocytes (%) (Auto) 6.2L, Monocytes (%) (Auto) 12.9H, Eosinophils (%) (Auto) 0.1, Basophils (%) (Auto) 0.7, Sodium Level 140, Potassium Level 4.8, Chloride Level 107, Carbon Dioxide Level 23, Anion Gap 10, Blood Urea Nitrogen 42H, Creatinine 1.7H, Estimat Glomerular Filtration Rate 34.3, Glucose Level 153H, Hemoglobin A1c 5.6, Lactic Acid Level 1.10, Uric Acid 13.0H, Calcium Level 9.2, Phosphorus Level 3.8, Magnesium Level 2.2, Iron Level 23L, Total Iron Binding Capacity 175L, Percent Iron Saturation 13L, Unsaturated Iron Binding 152, Ferritin 1688H, Total Bilirubin 0.4, Gamma Glutamyl Transpeptidase 294H, Aspartate Amino Transf (AST/SGOT) 161H, Alanine Aminotransferase (ALT/SGPT) 350H, Alkaline Phosphatase 210H, Lactate Dehydrogenase 449H, Total Creatine Kinase 323H, Troponin I 9.217H, C-Reactive Protein, Quantitative 8.3H, Pro-B-Type Natriuretic Peptide > 21749Q, Total Protein 6.0L, Albumin 2.4L, Globulin 3.6, Albumin/Globulin Ratio 0.7L, Triglycerides Level 69, Cholesterol Level 214H, LDL Cholesterol 113H, HDL Cholesterol 84H, Cholesterol/HDL Ratio 2.5L, Lipase 104, Vitamin B12 Level 1285H , Folate 24.1, Thyroid Stimulating Hormone (TSH) 0.183L, Digoxin Level 2.7*H 01/14/21 07:57: Arterial Blood pH 7.364, Arterial Blood Partial Pressure CO2 44.5, Arterial Blood Partial Pressure O2 82.9, Arterial Blood HCO3 24.8, Arterial Blood Oxygen Saturation 95.3, Arterial Blood Base Excess -0.7, Mo Test Positive Height (Feet): 5 Height (Inches): 2.00 Weight (Pounds): 109 General Appearance: alert EENT: PERRL/EOMI Neck: supple Cardiovascular: regular rhythm Respiratory/Chest: crackles/rales Abdomen: non tender, soft Extremities: non-tender Assessment/Plan Status: not improved Assessment/Plan: nstemi on medical tx, tachycardia better with iv digoxin dw cardio covid 19 negative ac copd exacerabation chf/cm htn cardiac arrhtemia cont iv abx on heparin drip dw pulmonary cardiology on the case left message to the son pt is better today Vinod Bowers MD Jan 14, 2021 09:29
[2021-01-14] MEDS: Metoprolol Tartrate 50mg tab ORAL SCH ×3 (09:30→21:13)
[2021-01-14] MEDS: Solu-MEDROL 40mg Inj IVP SCH (09:31)
[2021-01-14] MEDS: Enoxaparin 60mg Inj SUBQ SCH (09:33)
--- NOTE | 2021-01-14 10:06 | NUR ---
NURSE NOTES: re non aadmin asprin EC and pantoprozole. neither can be crushed and pt cant tolerate whole pills at this time. Will get alternative from
--- NOTE | 2021-01-14 10:32 | NUR ---
CASE MANAGEMENT:REVIEW 01/14/21 SI: NSTEMI. NSVT. AC/CHR CHF. COPD. SEVERE AORTIC VALVE STENOSIS 97.9 86 22 133/71 100% ON BIPAP 30% H/H-8.2/25.3 TROPONIN(+) 9.217 TCK+323 IS: NTG 1 PATCH Q24 LOVENOX SQ Q12 IV CEFEPIME Q24 IV SOLUMEDROL QD IV PEPCID Q12 PLAVIX PO QD ASA PO QD LOPRESSOR PO Q12 : STEP DOWN UNIT DCP: FROM HOME PLAN: WAITING FOR TRANSFER TO HIGHER LEVEL OF CARE FOR TAVR ((TRANSCATHETER AORTIC VALVE REPLACEMENT) RECEIVED CALL FROM [facility] REQUESTING A HARD COPY AUTHORIZATION BE FAXED TO THEM AT F: [phone] FOR THIS PATIENT LEFT M FOR ROBBI SHAFER @ [facility]
--- NOTE | 2021-01-14 10:34 | Infectious Diseases Prog Note ---
Assessment/Plan Assessment/Plan antibiotics : cefepime A 1. pneumonia improving covid 19 negative 2. increased LFT 3. anemia P 1. continue cefepime 2. will follow up cultures Subjective ROS Limited/Unobtainable: Yes Allergies: Coded Allergies: No Known Allergies (Unverified , 01/06/21) Objective Last 24 Hour Vital Signs Date Time Temp Pulse Resp B/P (MAP) Pulse Ox O2 Delivery O2 Flow Rate FiO2 01/14/21 09:30 86 133/71 01/14/21 08:00 97.9 86 22 133/71 (91) 100 01/14/21 04:00 Bi-pap 01/14/21 04:00 82 01/14/21 04:00 98.4 79 25 139/77 (97) 100 01/14/21 03:30 84 22 99 30 01/14/21 00:00 Bi-pap 01/14/21 00:00 85 01/14/21 00:00 98.4 80 24 131/71 (91) 100 01/13/21 23:12 89 23 99 30 01/13/21 21:08 81 01/13/21 20:40 113 120/67 01/13/21 20:00 97.0 90 25 122/67 (85) 98 01/13/21 20:00 Bi-pap 01/13/21 20:00 84 30 99 30 01/13/21 19:30 Bi-Pap 01/13/21 16:00 97.3 99 22 101/63 (76) 97 01/13/21 16:00 Bi-pap 01/13/21 16:00 113 01/13/21 15:06 121 01/13/21 13:20 111 30 97 30 01/13/21 12:56 125/56 01/13/21 12:27 105 01/13/21 12:00 97.9 112 22 125/56 (79) 97 01/13/21 12:00 Bi-pap Height (Feet): 5 Height (Inches): 2.00 Weight (Pounds): 109 Respiratory/Chest: lungs clear Cardiovascular: normal rate, regular rhythm, no gallop/murmur Abdomen: soft, non tender Extremities: no edema Laboratory Tests Test 01/13/21 22:00 01/14/21 03:20 01/14/21 07:57 Urine Color Pale yellow Urine Appearance Slightly cloudy Urine pH 5 (4.5-8.0) Urine Specific [place] 1.015 (1.005-1.035) Urine Protein 2+ (NEGATIVE) H Urine Glucose (UA) Negative (NEGATIVE) Urine Ketones Negative (NEGATIVE) Urine Blood 5+ (NEGATIVE) H Urine Nitrite Negative (NEGATIVE) Urine Bilirubin Negative (NEGATIVE) Urine Urobilinogen Normal MG/DL (0.0-1.0) Urine Leukocyte Esterase 1+ (NEGATIVE) H Urine RBC Tntc /HPF (0 - 2) H Urine WBC 0-2 /HPF (0 - 2) Urine Squamous Epithelial Cells Occasional /LPF Urine Amorphous Sediment Moderate /LPF (NONE) H Urine Bacteria Many /HPF (NONE) H White Blood Count 7.8 K/UL (4.8-10.8) Red Blood Count 2.75 M/UL (4.20-5.40) L Hemoglobin 8.2 G/DL (12.0-16.0) L Hematocrit 25.3 % (37.0-47.0) L Mean Corpuscular Volume 92 FL (80-99) Mean Corpuscular Hemoglobin 29.7 PG (27.0-31.0) Mean Corpuscular Hemoglobin Concent 32.3 G/DL (32.0-36.0) Red Cell Distribution Width 12.5 % (11.6-14.8) Platelet Count 176 K/UL (150-450) Mean Platelet Volume 7.4 FL (6.5-10.1) Neutrophils (%) (Auto) 80.1 % (45.0-75.0) H Lymphocytes (%) (Auto) 6.2 % (20.0-45.0) L Monocytes (%) (Auto) 12.9 % (1.0-10.0) H Eosinophils (%) (Auto) 0.1 % (0.0-3.0) Basophils (%) (Auto) 0.7 % (0.0-2.0) Sodium Level 140 MMOL/L (136-145) Potassium Level 4.8 MMOL/L (3.5-5.1) Chloride Level 107 MMOL/L (98-107) Carbon Dioxide Level 23 MMOL/L (21-32) Anion Gap 10 mmol/L (5-15) Blood Urea Nitrogen 42 mg/dL (7-18) H Creatinine 1.7 MG/DL (0.55-1.30) H Estimat Glomerular Filtration Rate 34.3 mL/min (>60) Glucose Level 153 MG/DL (74-106) H Hemoglobin A1c 5.6 % (4.3-6.0) Lactic Acid Level 1.10 mmol/L (0.4-2.0) Uric Acid 13.0 MG/DL (2.6-7.2) H Calcium Level 9.2 MG/DL (8.5-10.1) Phosphorus Level 3.8 MG/DL (2.5-4.9) Magnesium Level 2.2 MG/DL (1.8-2.4) Iron Level 23 ug/dL (50-175) L Total Iron Binding Capacity 175 ug/dL (250-450) L Percent Iron Saturation 13 % (15-50) L Unsaturated Iron Binding 152 ug/dL (112-346) Ferritin 1688 NG/ML (8-388) H Total Bilirubin 0.4 MG/DL (0.2-1.0) Gamma Glutamyl Transpeptidase 294 U/L (5-85) H Aspartate Amino Transf (AST/SGOT) 161 U/L (15-37) H Alanine Aminotransferase (ALT/SGPT) 350 U/L (12-78) H Alkaline Phosphatase 210 U/L (46-116) H Lactate Dehydrogenase 449 U/L (81-234) H Total Creatine Kinase 323 U/L (26-308) H Troponin I 9.217 ng/mL (0.000-0.056) C-Reactive Protein, Quantitative 8.3 mg/dL (0.00-0.90) H Pro-B-Type Natriuretic Peptide > 77919 pg/mL (0-125) H Total Protein 6.0 G/DL (6.4-8.2) L Albumin 2.4 G/DL (3.4-5.0) L Globulin 3.6 g/dL Albumin/Globulin Ratio 0.7 (1.0-2.7) L Triglycerides Level 69 MG/DL (30-150) Cholesterol Level 214 MG/DL (< 200) H LDL Cholesterol 113 mg/dL (<100) H HDL Cholesterol 84 MG/DL (40-60) H Cholesterol/HDL Ratio 2.5 (3.3-4.4) L Lipase 104 U/L (73-393) Vitamin B12 Level 1285 PG/ML (193-986) H Folate 24.1 NG/ML (8.6-58.9) Thyroid Stimulating Hormone (TSH) 0.183 uiU/mL (0.358-3.740) Digoxin Level 2.7 NG/ML (0.9-2.0) *H Arterial Blood pH 7.364 (7.350-7.450) Arterial Blood Partial Pressure CO2 44.5 mmHg (35.0-45.0) Arterial Blood Partial Pressure O2 82.9 mmHg (75.0-100.0) Arterial Blood HCO3 24.8 mmol/L (22.0-26.0) Arterial Blood Oxygen Saturation 95.3 % (95-100) Arterial Blood Base Excess -0.7 (-2-2) Mo Test Positive Current Medications Medications (Trade) Dose Ordered Sig/Lexi Route PRN Reason Start Time Stop Time Status Last Admin Dose Admin Acetaminophen (Tylenol) 650 mg Q6H PRN ORAL Mild Pain (Pain Scale 1-3) 01/06/21 16:15 02/05/21 16:14 01/06/21 16:46 Aspirin (Ecotrin) 81 mg DAILY ORAL 01/08/21 13:45 02/22/21 13:44 01/12/21 09:39 Atorvastatin Calcium (Lipitor) 80 mg BEDTIME ORAL 01/08/21 21:00 04/08/21 20:59 01/12/21 20:16 Cefepime HCl 2 gm/ Dextrose 55 ml @ 110 mls/hr Q24H IVPB 01/13/21 12:00 01/20/21 11:59 01/13/21 12:59 Clopidogrel Bisulfate (Plavix) 75 mg DAILY ORAL 01/10/21 09:00 02/09/21 08:59 01/14/21 09:30 Enoxaparin Sodium (Lovenox) 50 mg EVERY 12 HOURS SUBQ 01/13/21 21:00 04/13/21 20:59 01/14/21 09:33 Famotidine (Pepcid I.v.) 20 mg Q12HR IVP 01/13/21 12:00 02/12/21 11:59 01/14/21 09:31 Methylprednisolone Sodium Succinate (Solu-MEDROL) 20 mg DAILY IVP 01/13/21 09:00 04/13/21 08:59 01/14/21 09:31 Metoprolol Tartrate (Lopressor) 50 mg Q12HR ORAL 01/13/21 21:00 04/08/21 13:44 01/14/21 09:30 Nitroglycerin (Ntg) 1 patch Q24H TDERMAL 01/13/21 12:15 02/12/21 12:14 01/13/21 12:56 Pantoprazole (Protonix) 40 mg EVERY 12 HOURS ORAL 01/13/21 21:00 02/12/21 20:59 Emmie Dickson MD Jan 14, 2021 10:34
[2021-01-14 12:00] VITALS: BP 134/69
[2021-01-14] MEDS: Nitroglycerin Patch 0.4mg TDERMAL SCH (12:36)
[2021-01-14] MEDS: Cefepime HCl 2 GM in D5W 55 ML IVPB SCH (12:37)
--- NOTE | 2021-01-14 13:52 | NUR ---
INSURANCE CLINICALS/REVIEW FAXED TO [facility]#[phone] fax#[phone] Addendum: 01/15/21 at 1222 by NABOR PERSAUD LVN LVN [facility] ROBBI SHAFER T: [phone]
--- NOTE | 2021-01-14 14:00 | Nephrology Progress Note ---
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 Hyperkalemia resolved. Troponin I lowering. Digoxin level 2.7. Will monitor renal parameters and digoxin level. Start allopurinol for high uric acid Previously: You have hyperkalemia and elevated creatinine we will hold further digoxin doses and monitor digoxin level Anemia work-up Monitor renal parameters and electrolytes Optimize cardiac and pulmonary status Urine studies Per orders Subjective ROS Limited/Unobtainable: No Constitutional: Reports: malaise, weakness Objective Objective Last 24 Hour Vital Signs Date Time Temp Pulse Resp B/P (MAP) Pulse Ox O2 Delivery O2 Flow Rate FiO2 01/14/21 12:36 134/69 01/14/21 12:00 78 01/14/21 12:00 97.3 78 21 134/69 (90) 98 01/14/21 12:00 Nasal Cannula 3.0 01/14/21 09:30 86 133/71 01/14/21 08:00 97.9 86 22 133/71 (91) 100 01/14/21 08:00 Nasal Cannula 3.0 01/14/21 08:00 83 01/14/21 07:45 Bi-Pap 01/14/21 07:40 86 25 100 30 01/14/21 04:00 Bi-pap 01/14/21 04:00 82 01/14/21 04:00 98.4 79 25 139/77 (97) 100 01/14/21 03:30 84 22 99 30 01/14/21 00:00 Bi-pap 01/14/21 00:00 85 01/14/21 00:00 98.4 80 24 131/71 (91) 100 01/13/21 23:12 89 23 99 30 01/13/21 21:08 81 01/13/21 20:40 113 120/67 01/13/21 20:00 97.0 90 25 122/67 (85) 98 01/13/21 20:00 Bi-pap 01/13/21 20:00 84 30 99 30 01/13/21 19:30 Bi-Pap 01/13/21 16:00 97.3 99 22 101/63 (76) 97 01/13/21 16:00 Bi-pap 01/13/21 16:00 113 01/13/21 15:06 121 Intake and Output 01/13/21 01/14/21 19:00 07:00 Output Total 600 ml 550 ml Balance -600 ml -550 ml Output Urine Total 600 ml 550 ml # Bowel Movements 1 1 Current Medications Medications (Trade) Dose Ordered Sig/Lexi Route PRN Reason Start Time Stop Time Status Last Admin Dose Admin Acetaminophen (Tylenol) 650 mg Q6H PRN ORAL Mild Pain (Pain Scale 1-3) 01/06/21 16:15 02/05/21 16:14 01/06/21 16:46 Aspirin (ASA) 81 mg DAILY NG 01/15/21 09:00 03/01/21 08:59 Atorvastatin Calcium (Lipitor) 80 mg BEDTIME ORAL 01/08/21 21:00 04/08/21 20:59 01/12/21 20:16 Cefepime HCl 2 gm/ Dextrose 55 ml @ 110 mls/hr Q24H IVPB 01/13/21 12:00 01/20/21 11:59 01/14/21 12:37 Clopidogrel Bisulfate (Plavix) 75 mg DAILY ORAL 01/10/21 09:00 02/09/21 08:59 01/14/21 09:30 Enoxaparin Sodium (Lovenox) 50 mg EVERY 12 HOURS SUBQ 01/13/21 21:00 04/13/21 20:59 01/14/21 09:33 Famotidine (Pepcid I.v.) 20 mg Q12HR IVP 01/13/21 12:00 02/12/21 11:59 01/14/21 09:31 Methylprednisolone Sodium Succinate (Solu-MEDROL) 20 mg DAILY IVP 01/13/21 09:00 04/13/21 08:59 01/14/21 09:31 Metoprolol Tartrate (Lopressor) 50 mg Q12HR ORAL 01/13/21 21:00 04/08/21 13:44 01/14/21 09:30 Nitroglycerin (Ntg) 1 patch Q24H TDERMAL 01/13/21 12:15 02/12/21 12:14 01/14/21 12:36 Laboratory Tests 01/13/21 22:00: Urine Color Pale yellow, Urine Appearance Slightly cloudy, Urine pH 5, Urine Specific [place] 1.015, Urine Protein 2+H, Urine Glucose (UA) Negative, Urine Ketones Negative, Urine Blood 5+H, Urine Nitrite Negative, Urine Bilirubin Negative, Urine Urobilinogen Normal, Urine Leukocyte Esterase 1+H, Urine RBC TntcH, Urine WBC 0-2, Urine Squamous Epithelial Cells Occasional, Urine Amorphous Sediment ModerateH, Urine Bacteria ManyH 01/14/21 03:20: White Blood Count 7.8, Red Blood Count 2.75L, Hemoglobin 8.2L, Hematocrit 25.3L, Mean Corpuscular Volume 92, Mean Corpuscular Hemoglobin 29.7, Mean Corpuscular Hemoglobin Concent 32.3, Red Cell Distribution Width 12.5, Platelet Count 176, Mean Platelet Volume 7.4, Neutrophils (%) (Auto) 80.1H, Lymphocytes (%) (Auto) 6.2L, Monocytes (%) (Auto) 12.9H, Eosinophils (%) (Auto) 0.1, Basophils (%) (Auto) 0.7, Sodium Level 140, Potassium Level 4.8, Chloride Level 107, Carbon Dioxide Level 23, Anion Gap 10, Blood Urea Nitrogen 42H, Creatinine 1.7H, E stimat Glomerular Filtration Rate 34.3, Glucose Level 153H, Hemoglobin A1c 5.6, Lactic Acid Level 1.10, Uric Acid 13.0H, Calcium Level 9.2, Phosphorus Level 3.8, Magnesium Level 2.2, Iron Level 23L, Total Iron Binding Capacity 175L, Percent Iron Saturation 13L, Unsaturated Iron Binding 152, Ferritin 1688H, Total Bilirubin 0.4, Gamma Glutamyl Transpeptidase 294H, Aspartate Amino Transf (AST/SGOT) 161H, Alanine Aminotransferase (ALT/SGPT) 350H, Alkaline Phosphatase 210H, Lactate Dehydrogenase 449H, Total Creatine Kinase 323H, Troponin I 9.217H, C-Reactive Protein, Quantitative 8.3H, Pro-B-Type Natriuretic Peptide > 56519P, Total Protein 6.0L, Albumin 2.4L, Globulin 3.6, Albumin/Globulin Ratio 0.7L, Triglycerides Level 69, Cholesterol Level 214H, LDL Cholesterol 113H, HDL Cholesterol 84H, Cholesterol/HDL Ratio 2.5L, Lipase 104, Vitamin B12 Level 1285H , Folate 24.1, Thyroid Stimulating Hormone (TSH) 0.183L, Digoxin Level 2.7*H 01/14/21 07:57: Arterial Blood pH 7.364, Arterial Blood Partial Pressure CO2 44.5, Arterial Blood Partial Pressure O2 82.9, Arterial Blood HCO3 24.8, Arterial Blood Oxygen Saturation 95.3, Arterial Blood Base Excess -0.7, Mo Test Positive Height (Feet): 5 Height (Inches): 2.00 Weight (Pounds): 109 General Appearance: no apparent distress, lethargic EENT: other - On O2 cannula at 3 L Cardiovascular: normal rate Respiratory/Chest: decreased breath sounds Abdomen: distended Tobias Wilson MD Jan 14, 2021 14:00
[2021-01-14 16:00] VITALS: BP 150/71
--- NOTE | 2021-01-14 16:11 | Pulmonology Progress Note ---
Subjective ROS Limited/Unobtainable: No Interval Events: None major reported per nursing Constitutional: Reports: other - better; Denies: fever HEENT: Repors: no symptoms Respiratory: Reports: shortness of breath Cardiovascular: Reports: no symptoms Gastrointestinal/Abdominal: Reports: no symptoms Genitourinary: Reports: no symptoms Allergies: Coded Allergies: No Known Allergies (Unverified , 01/06/21) Objective Last 24 Hour Vital Signs Date Time Temp Pulse Resp B/P (MAP) Pulse Ox O2 Delivery O2 Flow Rate FiO2 01/14/21 16:00 83 01/14/21 16:00 Nasal Cannula 3.0 01/14/21 12:36 134/69 01/14/21 12:00 78 01/14/21 12:00 97.3 78 21 134/69 (90) 98 01/14/21 12:00 Nasal Cannula 3.0 01/14/21 09:30 86 133/71 01/14/21 08:00 97.9 86 22 133/71 (91) 100 01/14/21 08:00 Nasal Cannula 3.0 01/14/21 08:00 83 01/14/21 07:45 Bi-Pap 01/14/21 07:40 86 25 100 30 01/14/21 04:00 Bi-pap 01/14/21 04:00 82 01/14/21 04:00 98.4 79 25 139/77 (97) 100 01/14/21 03:30 84 22 99 30 01/14/21 00:00 Bi-pap 01/14/21 00:00 85 01/14/21 00:00 98.4 80 24 131/71 (91) 100 01/13/21 23:12 89 23 99 30 01/13/21 21:08 81 01/13/21 20:40 113 120/67 01/13/21 20:00 97.0 90 25 122/67 (85) 98 01/13/21 20:00 Bi-pap 01/13/21 20:00 84 30 99 30 01/13/21 19:30 Bi-Pap Intake and Output 01/13/21 01/14/21 19:00 07:00 Output Total 600 ml 550 ml Balance -600 ml -550 ml Output Urine Total 600 ml 550 ml # Bowel Movements 1 1 General Appearance: no acute distress HEENT: atraumatic Respiratory: accessory muscle use, crackles/rales Cardiovascular: regular rhythm, tachycardia Abdomen: soft, non tender Microbiology Date/Time Source Procedure Growth Status 01/13/21 22:00 Urine,Clean Catch Urine Culture - Preliminary NO GROWTH Resulted Laboratory Tests 01/13/21 22:00: Urine Color Pale yellow, Urine Appearance Slightly cloudy, Urine pH 5, Urine Specific [place] 1.015, Urine Protein 2+H, Urine Glucose (UA) Negative, Urine Ketones Negative, Urine Blood 5+H, Urine Nitrite Negative, Urine Bilirubin Negative, Urine Urobilinogen Normal, Urine Leukocyte Esterase 1+H, Urine RBC TntcH, Urine WBC 0-2, Urine Squamous Epithelial Cells Occasional, Urine Amorphous Sediment ModerateH, Urine Bacteria ManyH 01/14/21 03:20: White Blood Count 7.8, Red Blood Count 2.75L, Hemoglobin 8.2L, Hematocrit 25.3L, Mean Corpuscular Volume 92, Mean Corpuscular Hemoglobin 29.7, Mean Corpuscular Hemoglobin Concent 32.3, Red Cell Distribution Width 12.5, Platelet Count 176, Mean Platelet Volume 7.4, Neutrophils (%) (Auto) 80.1H, Lymphocytes (%) (Auto) 6.2L, Monocytes (%) (Auto) 12.9H, Eosinophils (%) (Auto) 0.1, Basophils (%) (Auto) 0.7, Sodium Level 140, Potassium Level 4.8, Chloride Level 107, Carbon Dioxide Level 23, Anion Gap 10, Blood Urea Nitrogen 42H, Creatinine 1.7H, Estimat Glomerular Filtration Rate 34.3, Glucose Level 153H, Hemoglobin A1c 5.6, Lactic Acid Level 1.10, Uric Acid 13.0H, Calcium Level 9.2, Phosphorus Level 3.8, Magnesium Level 2.2, Iron Level 23L, Total Iron Binding Capacity 175L, Percent Iron Saturation 13L, Unsaturated Iron Binding 152, Ferritin 1688H, Total Bilirubin 0.4, Gamma Glutamyl Transpeptidase 294H, Aspartate Amino Transf (AST/SGOT) 161H, Alanine Aminotransferase (ALT/SGPT) 350H, Alkaline Phosphatase 210H, Lactate Dehydrogenase 449H, Total Creatine Kinase 323H, Troponin I 9.217H, C-Reactive Protein, Quantitative 8.3H, Pro-B-Type Natriuretic Peptide > 55024A, Total Protein 6.0L, Albumin 2.4L, Globulin 3.6, Albumin/Globulin Ratio 0.7L, Triglycerides Level 69, Cholesterol Level 214H, LDL Cholesterol 113H, HDL Cholesterol 84H, Cholesterol/HDL Ratio 2.5L, Lipase 104, Vitamin B12 Level 1285H , Folate 24.1, Thyroid Stimulating Hormone (TSH) 0.183L, Digoxin Level 2.7*H 01/14/21 07:57: Arterial Blood pH 7.364, Arterial Blood Partial Pressure CO2 44.5, Arterial Blood Partial Pressure O2 82.9, Arterial Blood HCO3 24.8, Arterial Blood Oxygen Saturation 95.3, Arterial Blood Base Excess -0.7, Mo Test Positive Current Medications Medications (Trade) Dose Ordered Sig/Lexi Route PRN Reason Start Time Stop Time Status Last Admin Dose Admin Acetaminophen (Tylenol) 650 mg Q6H PRN ORAL Mild Pain (Pain Scale 1-3) 01/06/21 16:15 02/05/21 16:14 01/06/21 16:46 Allopurinol (allopurinoL) 300 mg DAILY ORAL 01/15/21 09:00 02/14/21 08:59 Aspirin (ASA) 81 mg DAILY NG 01/15/21 09:00 03/01/21 08:59 Atorvastatin Calcium (Lipitor) 80 mg BEDTIME ORAL 01/08/21 21:00 04/08/21 20:59 01/12/21 20:16 Cefepime HCl 2 gm/ Dextrose 55 ml @ 110 mls/hr Q24H IVPB 01/13/21 12:00 01/20/21 11:59 01/14/21 12:37 Clopidogrel Bisulfate (Plavix) 75 mg DAILY ORAL 01/10/21 09:00 02/09/21 08:59 01/14/21 09:30 Enoxaparin Sodium (Lovenox) 50 mg DAILY SUBQ 01/15/21 09:00 04/15/21 08:59 Famotidine (Pepcid I.v.) 20 mg Q12HR IVP 01/13/21 12:00 02/12/21 11:59 01/14/21 09:31 Methylprednisolone Sodium Succinate (Solu-MEDROL) 20 mg DAILY IVP 01/13/21 09:00 04/13/21 08:59 01/14/21 09:31 Metoprolol Tartrate (Lopressor) 50 mg Q12HR ORAL 01/13/21 21:00 04/08/21 13:44 01/14/21 09:30 Nitroglycerin (Ntg) 1 patch Q24H TDERMAL 01/13/21 12:15 02/12/21 12:14 01/14/21 12:36 Assessment/Plan Assessment/Plan 1. Hypoxemic respiratory distress; improving -Now on 3L NC; continue to wean as tolerated - s/p dexamethasone (01/07-01/08); now on Solu-Medrol - Increased accessory muscle use -> ABG improving - Avoid bronchodilators given pulmonary edema 2. COVID-19 PCR negative (01/06) - off isolation 3. Pneumonia -On broad-spectrum antibiotics per primary MD 4. Elevated BNP - s/p Lasix in the ER - cardio following 5. Elevated D-dimer with tachycardia - s/p heparin - now on Lovenox -Venous duplex of legs negative for DVT 6. Elevated troponin - Noted plans for transfer to [facility] for TVAR 7. NSTEMI - On heparin gtt + ASA + Plavix - seen by cardio The care for this patient was discussed with my supervising physician. Time spent for this case was approximately 31 minutes. Moo Emmanuel Jan 14, 2021 16:11
--- NOTE | 2021-01-14 18:13 | NUR ---
Speech Note (Dysphagia follow Up from 01/13/2021) Possible higher level care for diagnostic and intervention for heart failure noted. Creatine continued to rise from 1.5 to 1.7. Weaned off to Nasal cannula. Work of breathing with shor length of utterance noted. Voice is intact. I fed her a sip of water, and bite of apple sauce. She appeared to have swallowing thin liquid. She tolerated apple sauce, but she took a bite only, and stated no more. Interpretation: 1. very high risk of aspiration in setting of advanced heart failure, started to fail her organs function Plan/Recommendation: 1. If she is plan to go higher level of care in 24 hours, hold PO and keep her NPO 2. If she ends up staying here, goal of care consult and place PO with pureed and nectar thick liquid I will check her clincial status on Tuesday01/16/2021 if she stays here. Condition remains critical, overall prognosis without intervention is poor joshua Nichols
--- NOTE | 2021-01-14 18:58 | NUR ---
NURSE HAND-OFF REPORT: Important Events on Shift:[No remarkable events, no update on transfer to new facility] Patient Status: [Full] Diet: [Per ST eval, if she will be transferred keep NPO, but if she is staying keep nectar puree moist] Pending Orders: [] Pending Results/Labs:[] Pending MD notification:[] Latest Vital Signs: Temperature 97.3 , Pulse 84 , B/P 150 /71 , Respiratory Rate 21 , O2 SAT 100 , Bi-pap, O2 Flow Rate 3.0 . Vital Sign Comment: [] EKG Rhythm: SR with BBB Rhythm change?: N MD Notified?: Y -Dr. Bowers, Dr. Cr GUZMAN Response: Latest Joiner Fall Score: 45 Fall Risk: High Risk Safety Measures: Call light Within Reach, Bed Alarm Zone 2, Side Rails Side Rails x3, Bed position Low and Locked. Fall Precautions: Yellow Socks Yellow Gown Door Sign Patient Fall Education Report given to [Pending RN assignemnt]. Addendum: 01/14/21 at 1905 by Shruti Nova RN Report given to Brett LOUIS
--- NOTE | 2021-01-14 19:43 | NUR ---
NURSE NOTES: Report received form MISSY Bahena. Observed pt lying in the bed, awake, calm, confused, A/O x2. ON NC 3L, saturating at 99% at this time. SR noted. Abd soft, round. IV on R H 22G, SL. SCD on LBE. Reposition done. Bed in the lowest position. Side rails up x3. Call light within reach. Will continue to monitor.
[2021-01-14 20:00] VITALS: BP 138/70
[2021-01-14] MEDS: Atorvastatin 80mg tab ORAL SCH (21:00)
--- NOTE | 2021-01-14 21:20 | NUR ---
NURSE NOTES: Pt refused to take po meds. Explained risks and benefits, still refused. VS stable. Will continue to monitor.
[2021-01-15] VITALS: BP 138/62
--- NOTE | 2021-01-15 00:35 | NUR ---
NURSE NOTES: Pt sleeping in the bed, calm. On NC 3L , saturating at 98% at this time. SR noted. Reposition done. Will continue to monitor.
[2021-01-15 04:00] VITALS: BP 123/69
--- NOTE | 2021-01-15 05:00 | NUR ---
NURSE NOTES: No acute distress noted at this time. pt sleeping in the bed. Bed bath given. reposition done. will continue to monitor.
--- NOTE | 2021-01-15 06:47 | Hematology/Onc Progress Note ---
Assessment/Plan Assessment/Plan coaulopathy due to heparin gtt that has been started for nstemi anemia due to chronic disease, multifactorial --> hgb 8.2 nstemi on medical tx, waiting for cardiac cath at [facility] or [facility] continue hep gtt covid 19 negative ac copd exacerabation chf htn cardiac arrhtemia agitation cont iv abx iv decadrone on heparin drip add ativan fu labs dw pulmonary cardiology on the case Subjective Constitutional: Denies: no symptoms, chills, fever, malaise, weakness, other HEENT: Denies: no symptoms, eye pain, blurred vision, tearing, double vision, ear pain, ear discharge, nose pain, nose congestion, throat pain, throat swelling, mouth pain, mouth swelling, other Respiratory: Denies: no symptoms, cough, shortness of breath, SOB with excer tion, SOB at rest, sputum, wheezing, other Gastrointestinal/Abdominal: Denies: no symptoms, abdomen distended, abdominal pain, black stools, tarry stools, blood in stool, constipated, diarrhea, difficulty swallowing, nausea, poor appetite, poor fluid intake, rectal bleeding, vomiting, other Endocrine: Denies: no symptoms, excessive sweating, flushing, intolerance to cold, intolerance to heat, increased hunger, increased thirst, increased urine, unexplained weight gain, unexplained weight loss, other Hematologic/Lymphatic: Denies: no symptoms, anemia, easy bleeding, easy bruising, adenopathy, other Allergies: Coded Allergies: No Known Allergies (Unverified , 01/06/21) Subjective 01/11 labs reviewed, remains confused, meds noted, do rn, on hep gtt 01/12 pending placement at [facility] holding hep gtt as ptt 91 01/13 no night sweats, hgb 8.6, no hemolysis, no bleeding 01/14 confused, noncomplaint, attemptning to take off bipap, hgb 8.2 01/15 confused, but labs reviewed, agitated, hgb 8 Objective Objective Current Medications Medications (Trade) Dose Ordered Sig/Lexi Route PRN Reason Start Time Stop Time Status Last Admin Dose Admin Acetaminophen (Tylenol) 650 mg Q6H PRN ORAL Mild Pain (Pain Scale 1-3) 01/06/21 16:15 02/05/21 16:14 01/06/21 16:46 Allopurinol (allopurinoL) 300 mg DAILY ORAL 01/15/21 09:00 02/14/21 08:59 Aspirin (ASA) 81 mg DAILY NG 01/15/21 09:00 03/01/21 08:59 Atorvastatin Calcium (Lipitor) 80 mg BEDTIME ORAL 01/08/21 21:00 04/08/21 20:59 01/12/21 20:16 Cefepime HCl 2 gm/ Dextrose 55 ml @ 110 mls/hr Q24H IVPB 01/13/21 12:00 01/20/21 11:59 01/14/21 12:37 Clopidogrel Bisulfate (Plavix) 75 mg DAILY ORAL 01/10/21 09:00 02/09/21 08:59 01/14/21 09:30 Dextrose 1,000 ml @ 50 mls/hr Q20H IV 01/15/21 06:20 02/14/21 06:19 01/15/21 06:23 Enoxaparin Sodium (Lovenox) 50 mg DAILY SUBQ 01/15/21 09:00 04/15/21 08:59 Famotidine (Pepcid I.v.) 20 mg Q12HR IVP 01/13/21 12:00 02/12/21 11:59 01/14/21 21:13 Methylprednisolone Sodium Succinate (Solu-MEDROL) 20 mg DAILY IVP 01/13/21 09:00 04/13/21 08:59 01/14/21 09:31 Metoprolol Tartrate (Lopressor) 50 mg Q12HR ORAL 01/13/21 21:00 04/08/21 13:44 01/14/21 09:30 Nitroglycerin (Ntg) 1 patch Q24H TDERMAL 01/13/21 12:15 02/12/21 12:14 01/14/21 12:36 Last 24 Hour Vital Signs Date Time Temp Pulse Resp B/P (MAP) Pulse Ox O2 Delivery O2 Flow Rate FiO2 01/15/21 04:00 Nasal Cannula 3.0 01/15/21 04:00 78 01/15/21 04:00 97.4 77 30 123/69 (87) 100 01/15/21 00:00 Nasal Cannula 3.0 01/15/21 00:00 98.0 77 24 138/62 (87) 100 01/15/21 00:00 85 2/17/21 21:00 79 138/70 01/14/21 20:00 Nasal Cannula 3.0 01/14/21 20:00 81 01/14/21 20:00 97.7 79 30 138/70 (92) 97 01/14/21 19:43 99 Nasal Cannula 2.0 28 01/14/21 16:00 83 01/14/21 16:00 Nasal Cannula 3.0 01/14/21 16:00 97.3 84 21 150/71 (97) 100 01/14/21 12:36 134/69 01/14/21 12:00 78 01/14/21 12:00 97.3 78 21 134/69 (90) 98 01/14/21 12:00 Nasal Cannula 3.0 01/14/21 09:30 86 133/71 01/14/21 08:00 97.9 86 22 133/71 (91) 100 01/14/21 08:00 Nasal Cannula 3.0 01/14/21 08:00 83 01/14/21 07:45 Bi-Pap 01/14/21 07:40 86 25 100 30 01/14/21 04:00 Bi-pap 01/14/21 04:00 82 01/14/21 04:00 98.4 79 25 139/77 (97) 100 01/14/21 03:30 84 22 99 30 01/14/21 00:00 Bi-pap 01/14/21 00:00 85 01/14/21 00:00 98.4 80 24 131/71 (91) 100 01/13/21 23:12 89 23 99 30 01/13/21 21:08 81 01/13/21 20:40 113 120/67 01/13/21 20:00 97.0 90 25 122/67 (85) 98 01/13/21 20:00 Bi-pap 01/13/21 20:00 84 30 99 30 01/13/21 19:30 Bi-Pap 01/13/21 16:00 97.3 99 22 101/63 (76) 97 01/13/21 16:00 Bi-pap 01/13/21 16:00 113 01/13/21 15:06 121 01/13/21 13:20 111 30 97 30 01/13/21 12:56 125/56 01/13/21 12:27 105 01/13/21 12:00 97.9 112 22 125/56 (79) 97 01/13/21 12:00 Bi-pap 01/13/21 08:41 119 01/13/21 08:18 110 01/13/21 08:00 97.3 111 22 118/64 (82) 99 01/13/21 08:00 Bi-pap 01/13/21 07:15 97 Bi-Pap 30 01/13/21 07:15 124 21 97 30 Intake and Output 01/14/21 01/15/21 19:00 07:00 Intake Total 50 ml Output Total 250 ml 400 ml Balance -200 ml -400 ml Intake Oral 50 ml Output Urine Total 250 ml 400 ml # Bowel Movements 2 Labs Test 01/12/21 21:00 01/13/21 04:00 01/13/21 08:19 01/13/21 22:00 Arterial Blood pH 7.274 (7.350-7.450) 7.294 (7.350-7.450) Arterial Blood Partial Pressure CO2 54.5 mmHg (35.0-45.0) 49.4 mmHg (35.0-45.0) Arterial Blood Partial Pressure O2 272.3 mmHg (75.0-100.0) 77.9 mmHg (75.0-100.0) Arterial Blood HCO3 24.7 mmol/L (22.0-26.0) 23.4 mmol/L (22.0-26.0) Arterial Blood Oxygen Saturation 98.9 % (95-100) 94.1 % (95-100) Arterial Blood Base Excess -2.3 (-2-2) -3.2 (-2-2) Mo Test Positive Positive White Blood Count 6.2 K/UL (4.8-10.8) Red Blood Count 2.85 M/UL (4.20-5.40) Hemoglobin 8.6 G/DL (12.0-16.0) Hematocrit 27.2 % (37.0-47.0) Mean Corpuscular Volume 95 FL (80-99) Mean Corpuscular Hemoglobin 30.0 PG (27.0-31.0) Mean Corpuscular Hemoglobin Concent 31.4 G/DL (32.0-36.0) Red Cell Distribution Width 12.8 % (11.6-14.8) Platelet Count 153 K/UL (150-450) Mean Platelet Volume 7.8 FL (6.5-10.1) Neutrophils (%) (Auto) % (45.0-75.0) Lymphocytes (%) (Auto) % (20.0-45.0) Monocytes (%) (Auto) % (1.0-10.0) Eosinophils (%) (Auto) % (0.0-3.0) Basophils (%) (Auto) % (0.0-2.0) Differential Total Cells Counted 100 Neutrophils % (Manual) 62 % (45-75) Lymphocytes % (Manual) 19 % (20-45) Monocytes % (Manual) 15 % (1-10) Eosinophils % (Manual) 0 % (0-3) Basophils % (Manual) 0 % (0-2) Band Neutrophils 4 % (0-8) Platelet Estimate Adequate Platelet Morphology Normal Hypochromasia 1+ Activated Partial Thromboplast Time 90 SEC (23-33) Sodium Level 138 MMOL/L (136-145) Potassium Level 5.4 MMOL/L (3.5-5.1) Chloride Level 106 MMOL/L (98-107) Carbon Dioxide Level 22 MMOL/L (21-32) Anion Gap 10 mmol/L (5-15) Blood Urea Nitrogen 36 mg/dL (7-18) Creatinine 1.5 MG/DL (0.55-1.30) Estimat Glomerular Filtration Rate 39.6 mL/min (>60) Glucose Level 95 MG/DL (74-106) Calcium Level 8.7 MG/DL (8.5-10.1) Urine Color Pale yellow Urine Appearance Slightly cloudy Urine pH 5 (4.5-8.0) Urine Specific Lovejoy 1.015 (1.005-1.035) Urine Protein 2+ (NEGATIVE) Urine Glucose (UA) Negative (NEGATIVE) Urine Ketones Negative (NEGATIVE) Urine Blood 5+ (NEGATIVE) Urine Nitrite Negative (NEGATIVE) Urine Bilirubin Negative (NEGATIVE) Urine Urobilinogen Normal MG/DL (0.0-1.0) Urine Leukocyte Esterase 1+ (NEGATIVE) Urine RBC Tntc /HPF (0 - 2) Urine WBC 0-2 /HPF (0 - 2) Urine Squamous Epithelial Cells Occasional /LPF Urine Amorphous Sediment Moderate /LPF (NONE) Urine Bacteria Many /HPF (NONE) Test 2/17/21 03:20 01/14/21 07:57 White Blood Count 7.8 K/UL (4.8-10.8) Red Blood Count 2.75 M/UL (4.20-5.40) Hemoglobin 8.2 G/DL (12.0-16.0) Hematocrit 25.3 % (37.0-47.0) Mean Corpuscular Volume 92 FL (80-99) Mean Corpuscular Hemoglobin 29.7 PG (27.0-31.0) Mean Corpuscular Hemoglobin Concent 32.3 G/DL (32.0-36.0) Red Cell Distribution Width 12.5 % (11.6-14.8) Platelet Count 176 K/UL (150-450) Mean Platelet Volume 7.4 FL (6.5-10.1) Neutrophils (%) (Auto) 80.1 % (45.0-75.0) Lymphocytes (%) (Auto) 6.2 % (20.0-45.0) Monocytes (%) (Auto) 12.9 % (1.0-10.0) Eosinophils (%) (Auto) 0.1 % (0.0-3.0) Basophils (%) (Auto) 0.7 % (0.0-2.0) Sodium Level 140 MMOL/L (136-145) Potassium Level 4.8 MMOL/L (3.5-5.1) Chloride Level 107 MMOL/L (98-107) Carbon Dioxide Level 23 MMOL/L (21-32) Anion Gap 10 mmol/L (5-15) Blood Urea Nitrogen 42 mg/dL (7-18) Creatinine 1.7 MG/DL (0.55-1.30) Estimat Glomerular Filtration Rate 34.3 mL/min (>60) Glucose Level 153 MG/DL (74-106) Hemoglobin A1c 5.6 % (4.3-6.0) Lactic Acid Level 1.10 mmol/L (0.4-2.0) Uric Acid 13.0 MG/DL (2.6-7.2) Calcium Level 9.2 MG/DL (8.5-10.1) Phosphorus Level 3.8 MG/DL (2.5-4.9) Magnesium Level 2.2 MG/DL (1.8-2.4) Iron Level 23 ug/dL (50-175) Total Iron Binding Capacity 175 ug/dL (250-450) Percent Iron Saturation 13 % (15-50) Unsaturated Iron Binding 152 ug/dL (112-346) Ferritin 1688 NG/ML (8-388) Total Bilirubin 0.4 MG/DL (0.2-1.0) Gamma Glutamyl Transpeptidase 294 U/L (5-85) Aspartate Amino Transf (AST/SGOT) 161 U/L (15-37) Alanine Aminotransferase (ALT/SGPT) 350 U/L (12-78) Alkaline Phosphatase 210 U/L (46-116) Lactate Dehydrogenase 449 U/L (81-234) Total Creatine Kinase 323 U/L (26-308) Troponin I 9.217 ng/mL (0.000-0.056) C-Reactive Protein, Quantitative 8.3 mg/dL (0.00-0.90) Pro-B-Type Natriuretic Peptide > 34472 pg/mL (0-125) Total Protein 6.0 G/DL (6.4-8.2) Albumin 2.4 G/DL (3.4-5.0) Globulin 3.6 g/dL Albumin/Globulin Ratio 0.7 (1.0-2.7) Triglycerides Level 69 MG/DL (30-150) Cholesterol Level 214 MG/DL (< 200) LDL Cholesterol 113 mg/dL (<100) HDL Cholesterol 84 MG/DL (40-60) Cholesterol/HDL Ratio 2.5 (3.3-4.4) Lipase 104 U/L (73-393) Vitamin B12 Level 1285 PG/ML (193-986) Folate 24.1 NG/ML (8.6-58.9) Thyroid Stimulating Hormone (TSH) 0.183 uiU/mL (0.358-3.740) Digoxin Level 2.7 NG/ML (0.9-2.0) Arterial Blood pH 7.364 (7.350-7.450) Arterial Blood Partial Pressure CO2 44.5 mmHg (35.0-45.0) Arterial Blood Partial Pressure O2 82.9 mmHg (75.0-100.0) Arterial Blood HCO3 24.8 mmol/L (22.0-26.0) Arterial Blood Oxygen Saturation 95.3 % (95-100) Arterial Blood Base Excess -0.7 (-2-2) Mo Test Positive Height (Feet): 5 Height (Inches): 2.00 Weight (Pounds): 109 Objective GeN: Nad HEENT: PERRL/EOMI Neck: supple Cardiovascular: regular rhythm Respiratory/Chest: normal breath sounds Abdomen: non tender, soft Extremities: non-tender Elliot Mayberry MD Jan 15, 2021 06:47
--- NOTE | 2021-01-15 07:06 | NUR ---
NURSE HAND-OFF REPORT: Important Events on Shift: No acute distress noted. Patient Status: On 3L NC. Diet: Gooding purred moist, but was unable to give anything po. D5W started at 50cc/hr. Pending Orders: [] Pending Results/Labs:[] Pending MD notification:[] Latest Vital Signs: Temperature 97.4 , Pulse 77 , B/P 123 /69 , Respiratory Rate 30 , O2 SAT 100 , Bi-pap, O2 Flow Rate 3.0 . Vital Sign Comment: [] EKG Rhythm: Sinus Rhythm Rhythm change?: N MD Notified?: Y -Dr. Bowers, Dr. Cr GUZMAN Response: Latest Joiner Fall Score: 45 Fall Risk: High Risk Safety Measures: Call light Within Reach, Bed Alarm Zone 2, Side Rails Side Rails x3, Bed position Low and Locked. Fall Precautions: Yellow Socks Yellow Gown Door Sign Patient Fall Education Report given to MISSY Mcdowell.
--- NOTE | 2021-01-15 07:10 | NUR ---
NURSE NOTES: report recreived from MISSY West. patient is on bed, awake, makes eye contact, but does not respond when called name. No signs of grimacing or distress noted. Patient is on 3L nasal cannula, tolerating well. On dickson catheter, patent, intact, draining yellow urine. On nectar pureed moist regular diet. Has a R H 22 g, patent, intact, and running D5W at 50 cc/hr. HOB elevated, bed on lowest position, side rails up, bed on lowest position, call light within reach. Will continue to be monitored. Will continue plan of care.
[2021-01-15 07:45] LABS: BASOPHILS % (AUTO) 0.7 % (0.0-2.0); LYMPHOCYTES % (AUTO) 3.9 % (20.0-45.0); MEAN CORPUSCULAR VOLUME 93 FL (80-99); MONOCYTES % (AUTO) 11.6 % (1.0-10.0); NEUTROPHILS % (AUTO) 83.7 % (45.0-75.0); PLATELET COUNT 240 K/UL (150-450); RED BLOOD COUNT 3.02 M/UL (4.20-5.40); RED CELL DISTRIBUTION WIDTH 12.5 % (11.6-14.8); WHITE BLOOD COUNT 10.6 K/UL (4.8-10.8)
[2021-01-15 07:54] LABS: ALANINE AMINOTRANSFERASE 334 U/L (12-78); ALBUMIN 2.5 G/DL (3.4-5.0); ALBUMIN/GLOBULIN RATIO 0.6 (1.0-2.7); ALKALINE PHOSPHATASE 263 U/L (46-116); ANION GAP 7 mmol/L (5-15); ASPARTATE AMINO TRANSFERASE 119 U/L (15-37); BILIRUBIN,TOTAL 0.3 MG/DL (0.2-1.0); BLOOD UREA NITROGEN 54 mg/dL (7-18); CALCIUM 9.7 MG/DL (8.5-10.1); CARBON DIOXIDE 27 MMOL/L (21-32); CHLORIDE 108 MMOL/L (98-107); CREATINE KINASE 433 U/L (26-308); CREATININE 1.8 MG/DL (0.55-1.30); PHOSPHORUS 4.9 MG/DL (2.5-4.9); POTASSIUM 5.5 MMOL/L (3.5-5.1); SODIUM 142 MMOL/L (136-145)
[2021-01-15 08:00] VITALS: BP 135/64
[2021-01-15] MEDS: Aspirin Baby 81mg NG SCH (09:10)
[2021-01-15] MEDS: Solu-MEDROL 40mg Inj IVP SCH (09:10)
[2021-01-15] MEDS: Metoprolol Tartrate 50mg tab ORAL SCH ×2 (09:11→21:23)
[2021-01-15] MEDS: Enoxaparin 60mg Inj SUBQ SCH (09:12)
[2021-01-15] MEDS ORDERED: Sodium Polystyrene Sulfonate 15gm Powder ORAL SCH (09:45)
--- NOTE | 2021-01-15 10:34 | NUR ---
NURSE NOTES: Roselia from [facility] called and is asking for an updated ABG for this patient and progress notes from primary provider. Will order ABG stat and will follow up primary provider about progress notes. Will fax results to [facility] .
--- NOTE | 2021-01-15 11:30 | NUR ---
NURSE NOTES: PT came by and did bed exercises with the patient. PT reported that patient follows commands but gets fatigued for longer exercises.
--- NOTE | 2021-01-15 11:35 | Pulmonology Progress Note ---
Subjective ROS Limited/Unobtainable: No Interval Events: None major reported per nursing Constitutional: Reports: other - better; Denies: fever HEENT: Repors: no symptoms Respiratory: Reports: shortness of breath Cardiovascular: Reports: no symptoms Gastrointestinal/Abdominal: Reports: no symptoms Genitourinary: Reports: no symptoms Allergies: Coded Allergies: No Known Allergies (Unverified , 01/06/21) Objective Last 24 Hour Vital Signs Date Time Temp Pulse Resp B/P (MAP) Pulse Ox O2 Delivery O2 Flow Rate FiO2 01/15/21 09:11 77 136/60 01/15/21 08:00 96.4 81 18 135/64 (87) 95 01/15/21 08:00 Nasal Cannula 3.0 01/15/21 07:25 78 01/15/21 04:00 Nasal Cannula 3.0 01/15/21 04:00 78 01/15/21 04:00 97.4 77 30 123/69 (87) 100 01/15/21 00:00 Nasal Cannula 3.0 01/15/21 00:00 98.0 77 24 138/62 (87) 100 01/15/21 00:00 85 01/14/21 21:00 79 138/70 01/14/21 20:00 Nasal Cannula 3.0 01/14/21 20:00 81 01/14/21 20:00 97.7 79 30 138/70 (92) 97 01/14/21 19:43 99 Nasal Cannula 2.0 28 01/14/21 16:00 83 01/14/21 16:00 Nasal Cannula 3.0 01/14/21 16:00 97.3 84 21 150/71 (97) 100 01/14/21 12:36 134/69 01/14/21 12:00 78 01/14/21 12:00 97.3 78 21 134/69 (90) 98 01/14/21 12:00 Nasal Cannula 3.0 Intake and Output 01/14/21 01/15/21 19:00 07:00 Intake Total 50 ml Output Total 250 ml 400 ml Balance -200 ml -400 ml Intake Oral 50 ml Output Urine Total 250 ml 400 ml # Bowel Movements 2 General Appearance: no acute distress HEENT: atraumatic Respiratory: accessory muscle use, crackles/rales Cardiovascular: regular rhythm, tachycardia Abdomen: soft, non tender Microbiology Date/Time Source Procedure Growth Status 01/13/21 22:00 Urine,Clean Catch Urine Culture - Preliminary Strep Species, Gamma-Hemolytic Resulted Laboratory Tests 01/15/21 06:45: White Blood Count 10.6, Red Blood Count 3.02L, Hemoglobin 9.0L, Hematocrit 28.0L , Mean Corpuscular Volume 93, Mean Corpuscular Hemoglobin 29.8, Mean Corpuscular Hemoglobin Concent 32.1, Red Cell Distribution Width 12.5, Platelet Count 240, Mean Platelet Volume 8.4, Neutrophils (%) (Auto) 83.7H, Lymphocytes (%) (Auto) 3.9L, Monocytes (%) (Auto) 11.6H, Eosinophils (%) (Auto) 0.0, Basophils (%) (Auto) 0.7, Sodium Level 142, Potassium Level 5.5H, Chloride Level 108H, Carbon Dioxide Level 27, Anion Gap 7, Blood Urea Nitrogen 54H, Creatinine 1.8H, Estimat Glomerular Filtration Rate 32.1, Glucose Level 135H, Uric Acid 14.2H, Calcium Level 9.7, Phosphorus Level 4.9, Magnesium Level 2.5H, Total Bilirubin 0.3, Aspartate Amino Transf (AST/SGOT) 119H, Alanine Aminotransferase (ALT/SGPT) 334H , Alkaline Phosphatase 263H, Total Creatine Kinase 433H, C-Reactive Protein, Quantitative 4.9H, Pro-B-Type Natriuretic Peptide > 67970O, Total Protein 6.5, Albumin 2.5L, Globulin 4.0, Albumin/Globulin Ratio 0.6L, Digoxin Level 2.4H 01/15/21 11:01: Arterial Blood pH 7.293L, Arterial Blood Partial Pressure CO2 48.6H, Arterial Blood Partial Pressure O2 117.0H, Arterial Blood HCO3 23.0, Arterial Blood Oxygen Saturation 97.2, Arterial Blood Base Excess -3.5L, Mo Test Positive Current Medications Medications (Trade) Dose Ordered Sig/Lexi Route PRN Reason Start Time Stop Time Status Last Admin Dose Admin Acetaminophen (Tylenol) 650 mg Q6H PRN ORAL Mild Pain (Pain Scale 1-3) 01/06/21 16:15 02/05/21 16:14 01/06/21 16:46 Allopurinol (allopurinoL) 300 mg DAILY ORAL 01/15/21 09:00 02/14/21 08:59 01/15/21 09:10 Aspirin (ASA) 81 mg DAILY NG 01/15/21 09:00 03/01/21 08:59 01/15/21 09:10 Atorvastatin Calcium (Lipitor) 80 mg BEDTIME ORAL 01/08/21 21:00 04/08/21 20:59 01/12/21 20:16 Cefepime HCl 2 gm/ Dextrose 55 ml @ 110 mls/hr Q24H IVPB 01/13/21 12:00 01/20/21 11:59 01/14/21 12:37 Clopidogrel Bisulfate (Plavix) 75 mg DAILY ORAL 01/10/21 09:00 02/09/21 08:59 01/15/21 09:10 Dextrose 1,000 ml @ 50 mls/hr Q20H IV 01/15/21 06:20 02/14/21 06:19 01/15/21 06:23 Enoxaparin Sodium (Lovenox) 50 mg DAILY SUBQ 01/15/21 09:00 04/15/21 08:59 01/15/21 09:12 Famotidine (Pepcid I.v.) 20 mg Q12HR IVP 01/13/21 12:00 02/12/21 11:59 01/15/21 09:10 Methylprednisolone Sodium Succinate (Solu-MEDROL) 20 mg DAILY IVP 01/13/21 09:00 04/13/21 08:59 01/15/21 09:10 Metoprolol Tartrate (Lopressor) 50 mg Q12HR ORAL 01/13/21 21:00 04/08/21 13:44 01/15/21 09:11 Nitroglycerin (Ntg) 1 patch Q24H TDERMAL 01/13/21 12:15 02/12/21 12:14 01/14/21 12:36 Assessment/Plan Assessment/Plan 1. Hypoxemic respiratory distress; improving -Now on 3L NC; continue to wean as tolerated - s/p dexamethasone (01/07-01/08); now on Solu-Medrol - Increased accessory muscle use -> ABG worse today - Avoid bronchodilators given pulmonary edema 2. COVID-19 PCR negative (01/06) - off isolation 3. Pneumonia -On broad-spectrum antibiotics per primary MD 4. CHF - Elevated BNP - s/p Lasix in the ER - cardio following - repeat CXR (01/15) shows slightly worse -> will start Lasix gtt 5 mg/h 5. Elevated D-dimer with tachycardia - s/p heparin - now on Lovenox -Venous duplex of legs negative for DVT 6. Elevated troponin - [facility] 7. NSTEMI - On heparin gtt + ASA + Plavix - seen by cardio The care for this patient was discussed with my supervising physician. Time spent for this case was approximately 31 minutes. Moo Emmanuel Jan 15, 2021 11:35
[2021-01-15 12:00] VITALS: BP 138/79
[2021-01-15] MEDS: Cefepime HCl 2 GM in D5W 55 ML IVPB SCH (12:10)
--- NOTE | 2021-01-15 12:22 | NUR ---
CASE MANAGEMENT:REVIEW 01/15/21 SI: NSTEMI. NSVT. AC/CHR CHF. COPD. SEVERE AORTIC VALVE STENOSIS 96.4 81 18 135/64 95% ON 3L/NC H/H-9.0/28.0 K+5.5 BUN+54 CR+1.8 AST/ALT+119/334 TCK+433 IS: KAYEXALATE PO X1 NTG 1 PATCH Q24 LOVENOX SQ Q12 IV CEFEPIME Q24 IV SOLUMEDROL QD IV PEPCID Q12 PLAVIX PO QD ASA PO QD LOPRESSOR PO Q12 : STEP DOWN UNIT DCP: FROM HOME PLAN: WAITING FOR TRANSFER TO HIGHER LEVEL OF CARE FOR TAVR ((TRANSCATHETER AORTIC VALVE REPLACEMENT) SPOKE WITH ROBBI SHAFER AT [facility] YESTERDAY. PER SONI ,[facility] WILL NOT GIVE [facility] AUTHORIZATION FOR TRANSFER SINCE THEY HAVE OTHER HOSPITALS THEY ARE CONTRACTED WITH THAT CAN DO A TAVR. YESTERDAY SONI WAS WORKING ON A BED AT [facility] WHICH SEEMS TO NOT HAVE COME TO FRUITION. LEFT M FOR SONI REQUESTING UPDATE ON TRANSFER. LEFT 2 PHONE NUMBERS FOR SONI TO CALL BACK TO
--- NOTE | 2021-01-15 12:36 | Infectious Diseases Prog Note ---
Assessment/Plan Assessment/Plan A 1. pneumonia improving, COVID19 - 2. increased LFT 3. anemia 4. VT 5. Acidosis 6. Hypoxic respiratory failure P 1. Observe off antibiotic Subjective ROS Limited/Unobtainable: Yes Respiratory: Reports: shortness of breath Allergies: Coded Allergies: No Known Allergies (Unverified , 01/06/21) Objective Last 24 Hour Vital Signs Date Time Temp Pulse Resp B/P (MAP) Pulse Ox O2 Delivery O2 Flow Rate FiO2 01/15/21 09:11 77 136/60 01/15/21 08:00 96.4 81 18 135/64 (87) 95 01/15/21 08:00 Nasal Cannula 3.0 01/15/21 07:25 78 01/15/21 04:00 Nasal Cannula 3.0 01/15/21 04:00 78 01/15/21 04:00 97.4 77 30 123/69 (87) 100 01/15/21 00:00 Nasal Cannula 3.0 01/15/21 00:00 98.0 77 24 138/62 (87) 100 01/15/21 00:00 85 01/14/21 21:00 79 138/70 01/14/21 20:00 Nasal Cannula 3.0 01/14/21 20:00 81 01/14/21 20:00 97.7 79 30 138/70 (92) 97 01/14/21 19:43 99 Nasal Cannula 2.0 28 01/14/21 16:00 83 01/14/21 16:00 Nasal Cannula 3.0 01/14/21 16:00 97.3 84 21 150/71 (97) 100 01/14/21 12:36 134/69 Height (Feet): 5 Height (Inches): 2.00 Weight (Pounds): 109 HEENT: mucous membranes moist Respiratory/Chest: lungs clear, other - O2 by nasal cannula Cardiovascular: normal rate Abdomen: soft, non tender Genitourinary: other - Wu catheter Extremities: no edema Neurologic/Psychiatric: alert, responsive Microbiology Date/Time Source Procedure Growth Status 01/13/21 22:00 Urine,Clean Catch Urine Culture - Preliminary Strep Species, Gamma-Hemolytic Resulted Laboratory Tests Test 01/15/21 06:45 01/15/21 11:01 White Blood Count 10.6 K/UL (4.8-10.8) Red Blood Count 3.02 M/UL (4.20-5.40) L Hemoglobin 9.0 G/DL (12.0-16.0) L Hematocrit 28.0 % (37.0-47.0) L Mean Corpuscular Volume 93 FL (80-99) Mean Corpuscular Hemoglobin 29.8 PG (27.0-31.0) Mean Corpuscular Hemoglobin Concent 32.1 G/DL (32.0-36.0) Red Cell Distribution Width 12.5 % (11.6-14.8) Platelet Count 240 K/UL (150-450) Mean Platelet Volume 8.4 FL (6.5-10.1) Neutrophils (%) (Auto) 83.7 % (45.0-75.0) H Lymphocytes (%) (Auto) 3.9 % (20.0-45.0) L Monocytes (%) (Auto) 11.6 % (1.0-10.0) H Eosinophils (%) (Auto) 0.0 % (0.0-3.0) Basophils (%) (Auto) 0.7 % (0.0-2.0) Sodium Level 142 MMOL/L (136-145) Potassium Level 5.5 MMOL/L (3.5-5.1) H Chloride Level 108 MMOL/L (98-107) H Carbon Dioxide Level 27 MMOL/L (21-32) Anion Gap 7 mmol/L (5-15) Blood Urea Nitrogen 54 mg/dL (7-18) H Creatinine 1.8 MG/DL (0.55-1.30) H Estimat Glomerular Filtration Rate 32.1 mL/min (>60) Glucose Level 135 MG/DL (74-106) H Uric Acid 14.2 MG/DL (2.6-7.2) H Calcium Level 9.7 MG/DL (8.5-10.1) Phosphorus Level 4.9 MG/DL (2.5-4.9) Magnesium Level 2.5 MG/DL (1.8-2.4) H Total Bilirubin 0.3 MG/DL (0.2-1.0) Aspartate Amino Transf (AST/SGOT) 119 U/L (15-37) H Alanine Aminotransferase (ALT/SGPT) 334 U/L (12-78) H Alkaline Phosphatase 263 U/L (46-116) H Total Creatine Kinase 433 U/L (26-308) H C-Reactive Protein, Quantitative 4.9 mg/dL (0.00-0.90) H Pro-B-Type Natriuretic Peptide > 98072 pg/mL (0-125) H Total Protein 6.5 G/DL (6.4-8.2) Albumin 2.5 G/DL (3.4-5.0) L Globulin 4.0 g/dL Albumin/Globulin Ratio 0.6 (1.0-2.7) L Digoxin Level 2.4 NG/ML (0.9-2.0) H Arterial Blood pH 7.293 (7.350-7.450) Arterial Blood Partial Pressure CO2 48.6 mmHg (35.0-45.0) H Arterial Blood Partial Pressure O2 117.0 mmHg (75.0-100.0) H Arterial Blood HCO3 23.0 mmol/L (22.0-26.0) Arterial Blood Oxygen Saturation 97.2 % (95-100) Arterial Blood Base Excess -3.5 (-2-2) L Mo Test Positive Current Medications Medications (Trade) Dose Ordered Sig/Lexi Route PRN Reason Start Time Stop Time Status Last Admin Dose Admin Acetaminophen (Tylenol) 650 mg Q6H PRN ORAL Mild Pain (Pain Scale 1-3) 01/06/21 16:15 02/05/21 16:14 01/06/21 16:46 Allopurinol (allopurinoL) 300 mg DAILY ORAL 01/15/21 09:00 02/14/21 08:59 01/15/21 09:10 Aspirin (ASA) 81 mg DAILY NG 01/15/21 09:00 03/01/21 08:59 01/15/21 09:10 Atorvastatin Calcium (Lipitor) 80 mg BEDTIME ORAL 01/08/21 21:00 04/08/21 20:59 01/12/21 20:16 Cefepime HCl 2 gm/ Dextrose 55 ml @ 110 mls/hr Q24H IVPB 01/13/21 12:00 01/20/21 11:59 01/15/21 12:10 Clopidogrel Bisulfate (Plavix) 75 mg DAILY ORAL 01/10/21 09:00 02/09/21 08:59 01/15/21 09:10 Dextrose 1,000 ml @ 50 mls/hr Q20H IV 01/15/21 06:20 02/14/21 06:19 01/15/21 06:23 Enoxaparin Sodium (Lovenox) 50 mg DAILY SUBQ 01/15/21 09:00 04/15/21 08:59 01/15/21 09:12 Famotidine (Pepcid I.v.) 20 mg Q12HR IVP 01/13/21 12:00 02/12/21 11:59 01/15/21 09:10 Furosemide 100 mg/ Dextrose 100 ml @ 5 mls/hr Q20H IV 01/15/21 13:30 02/14/21 13:29 Methylprednisolone Sodium Succinate (Solu-MEDROL) 20 mg DAILY IVP 01/13/21 09:00 04/13/21 08:59 01/15/21 09:10 Metoprolol Tartrate (Lopressor) 50 mg Q12HR ORAL 01/13/21 21:00 04/08/21 13:44 01/15/21 09:11 Nitroglycerin (Ntg) 1 patch Q24H TDERMAL 01/13/21 12:15 02/12/21 12:14 01/14/21 12:36 Edson Davis MD Jan 15, 2021 12:36
[2021-01-15] MEDS: Nitroglycerin Patch 0.4mg TDERMAL SCH (12:41)
--- NOTE | 2021-01-15 13:08 | Nephrology Progress Note ---
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 Patient on IV Lasix for CHF. IV fluids stopped. Digoxin level lowering at 2.4. Continue per consultants. Kayexalate for high potassium given. January 14: Creatinine andrés to 1.7. Hyperkalemia resolved. Troponin I lowering. Digoxin level 2.7. Will monitor renal parameters and digoxin level. Start allopurinol for high uric acid Previously: You have hyperkalemia and elevated creatinine we will hold further digoxin doses and monitor digoxin level Anemia work-up Monitor renal parameters and electrolytes Optimize cardiac and pulmonary status Urine studies Per orders Subjective ROS Limited/Unobtainable: No Constitutional: Reports: malaise, weakness Objective Objective Last 24 Hour Vital Signs Date Time Temp Pulse Resp B/P (MAP) Pulse Ox O2 Delivery O2 Flow Rate FiO2 01/15/21 12:41 159/84 01/15/21 09:11 77 136/60 01/15/21 08:00 96.4 81 18 135/64 (87) 95 01/15/21 08:00 Nasal Cannula 3.0 01/15/21 07:25 78 01/15/21 04:00 Nasal Cannula 3.0 01/15/21 04:00 78 01/15/21 04:00 97.4 77 30 123/69 (87) 100 01/15/21 00:00 Nasal Cannula 3.0 01/15/21 00:00 98.0 77 24 138/62 (87) 100 01/15/21 00:00 85 01/14/21 21:00 79 138/70 01/14/21 20:00 Nasal Cannula 3.0 01/14/21 20:00 81 01/14/21 20:00 97.7 79 30 138/70 (92) 97 01/14/21 19:43 99 Nasal Cannula 2.0 28 01/14/21 16:00 83 01/14/21 16:00 Nasal Cannula 3.0 01/14/21 16:00 97.3 84 21 150/71 (97) 100 Intake and Output 01/14/21 01/15/21 19:00 07:00 Intake Total 50 ml Output Total 250 ml 400 ml Balance -200 ml -400 ml Intake Oral 50 ml Output Urine Total 250 ml 400 ml # Bowel Movements 2 Current Medications Medications (Trade) Dose Ordered Sig/Lexi Route PRN Reason Start Time Stop Time Status Last Admin Dose Admin Acetaminophen (Tylenol) 650 mg Q6H PRN ORAL Mild Pain (Pain Scale 1-3) 01/06/21 16:15 02/05/21 16:14 01/06/21 16:46 Allopurinol (allopurinoL) 300 mg DAILY ORAL 01/15/21 09:00 02/14/21 08:59 01/15/21 09:10 Aspirin (ASA) 81 mg DAILY NG 01/15/21 09:00 03/01/21 08:59 01/15/21 09:10 Atorvastatin Calcium (Lipitor) 80 mg BEDTIME ORAL 01/08/21 21:00 04/08/21 20:59 01/12/21 20:16 Cefepime HCl 2 gm/ Dextrose 55 ml @ 110 mls/hr Q24H IVPB 01/13/21 12:00 01/20/21 11:59 01/15/21 12:10 Clopidogrel Bisulfate (Plavix) 75 mg DAILY ORAL 01/10/21 09:00 02/09/21 08:59 01/15/21 09:10 Dextrose 1,000 ml @ 50 mls/hr Q20H IV 01/15/21 06:20 02/14/21 06:19 01/15/21 06:23 Enoxaparin Sodium (Lovenox) 50 mg DAILY SUBQ 01/15/21 09:00 04/15/21 08:59 01/15/21 09:12 Famotidine (Pepcid I.v.) 20 mg Q12HR IVP 01/13/21 12:00 02/12/21 11:59 01/15/21 09:10 Furosemide 100 mg/ Dextrose 100 ml @ 5 mls/hr Q20H IV 01/15/21 13:30 02/14/21 13:29 Methylprednisolone Sodium Succinate (Solu-MEDROL) 20 mg DAILY IVP 01/13/21 09:00 04/13/21 08:59 01/15/21 09:10 Metoprolol Tartrate (Lopressor) 50 mg Q12HR ORAL 01/13/21 21:00 04/08/21 13:44 01/15/21 09:11 Nitroglycerin (Ntg) 1 patch Q24H TDERMAL 01/13/21 12:15 02/12/21 12:14 01/15/21 12:41 Laboratory Tests 01/15/21 06:45: White Blood Count 10.6, Red Blood Count 3.02L, Hemoglobin 9.0L, Hematocrit 28.0L , Mean Corpuscular Volume 93, Mean Corpuscular Hemoglobin 29.8, Mean Corpuscular Hemoglobin Concent 32.1, Red Cell Distribution Width 12.5, Platelet Count 240, Mean Platelet Volume 8.4, Neutrophils (%) (Auto) 83.7H, Lymphocytes (%) (Auto) 3.9L, Monocytes (%) (Auto) 11.6H, Eosinophils (%) (Auto) 0.0, Basophils (%) (Auto) 0.7, Sodium Level 142, Potassium Level 5.5H, Chloride Level 108H, Carbon Dioxide Level 27, Anion Gap 7, Blood Urea Nitrogen 54H, Creatinine 1.8H, Estimat Glomerular Filtration Rate 32.1, Glucose Level 135H, Uric Acid 14.2H, Calcium Level 9.7, Phosphorus Level 4.9, Magnesium Level 2.5H, Total Bilirubin 0.3, Aspartate Amino Transf (AST/SGOT) 119H, Alanine Aminotransferase (ALT/SGPT) 334H , Alkaline Phosphatase 263H, Total Creatine Kinase 433H, C-Reactive Protein, Quantitative 4.9H, Pro-B-Type Natriuretic Peptide > 83364N, Total Protein 6.5, Albumin 2.5L, Globulin 4.0, Albumin/Globulin Ratio 0.6L, Digoxin Level 2.4H 01/15/21 11:01: Arterial Blood pH 7.293L, Arterial Blood Partial Pressure CO2 48.6H, Arterial Blood Partial Pressure O2 117.0H, Arterial Blood HCO3 23.0, Arterial Blood Oxygen Saturation 97.2, Arterial Blood Base Excess -3.5L, Mo Test Positive Height (Feet): 5 Height (Inches): 2.00 Weight (Pounds): 109 General Appearance: no apparent distress, lethargic Cardiovascular: normal rate Respiratory/Chest: decreased breath sounds Abdomen: distended Tobias Wilson MD Jan 15, 2021 13:07
--- NOTE | 2021-01-15 13:56 | Diagnostic Imaging Report ---
Indication: Cough Technique: One view of the chest Comparison: 01/11/2021 Findings: There is increasing pleural fluid on the left. Bilateral interstitial and airspace edema, right pleural effusion are unchanged. The heart is at least mildly enlarged. Impression: Increasing left pleural effusion. Otherwise stable findings as described
[2021-01-15 16:00] VITALS: BP 138/75
--- NOTE | 2021-01-15 16:30 | NUR ---
INSURANCE CLINICALS/REVIEW FAXED TO [facility]#[phone] fax#[phone]
[2021-01-15] MEDS ORDERED: Tubing IV Secondary IV ONE (18:07)
[2021-01-15] MEDS ORDERED: 1/2 NS 1000ml IV ONE (18:07)
--- NOTE | 2021-01-15 18:34 | General Progress Note ---
Subjective Allergies: Coded Allergies: No Known Allergies (Unverified , 01/06/21) Subjective doing ok more awake sitting in bed sob better Objective Last 24 Hour Vital Signs Date Time Temp Pulse Resp B/P (MAP) Pulse Ox O2 Delivery O2 Flow Rate FiO2 01/15/21 16:00 Nasal Cannula 3.0 01/15/21 15:36 81 01/15/21 12:41 159/84 01/15/21 12:00 97.3 72 20 138/79 (98) 100 01/15/21 12:00 Nasal Cannula 3.0 01/15/21 11:31 75 01/15/21 09:11 77 136/60 01/15/21 08:00 96.4 81 18 135/64 (87) 95 01/15/21 08:00 Nasal Cannula 3.0 01/15/21 07:50 98 Nasal Cannula 3.0 32 01/15/21 07:25 78 01/15/21 04:00 Nasal Cannula 3.0 01/15/21 04:00 78 01/15/21 04:00 97.4 77 30 123/69 (87) 100 01/15/21 00:00 Nasal Cannula 3.0 01/15/21 00:00 98.0 77 24 138/62 (87) 100 01/15/21 00:00 85 01/14/21 21:00 79 138/70 01/14/21 20:00 Nasal Cannula 3.0 01/14/21 20:00 81 01/14/21 20:00 97.7 79 30 138/70 (92) 97 01/14/21 19:43 99 Nasal Cannula 2.0 28 Intake and Output 01/14/21 01/15/21 19:00 07:00 Intake Total 50 ml Output Total 250 ml 400 ml Balance -200 ml -400 ml Intake Oral 50 ml Output Urine Total 250 ml 400 ml # Bowel Movements 2 Laboratory Tests 01/15/21 06:45: White Blood Count 10.6, Red Blood Count 3.02L, Hemoglobin 9.0L, Hematocrit 28.0L , Mean Corpuscular Volume 93, Mean Corpuscular Hemoglobin 29.8, Mean Corpuscular Hemoglobin Concent 32.1, Red Cell Distribution Width 12.5, Platelet Count 240, Mean Platelet Volume 8.4, Neutrophils (%) (Auto) 83.7H, Lymphocytes (%) (Auto) 3.9L, Monocytes (%) (Auto) 11.6H, Eosinophils (%) (Auto) 0.0, Basophils (%) (Auto) 0.7, Sodium Level 142, Potassium Level 5.5H, Chloride Level 108H, Carbon Dioxide Level 27, Anion Gap 7, Blood Urea Nitrogen 54H, Creatinine 1.8H, Estimat Glomerular Filtration Rate 32.1, Glucose Level 135H, Uric Acid 14.2H, Calcium Level 9.7, Phosphorus Level 4.9, Magnesium Level 2.5H, Total Bilirubin 0.3, Aspartate Amino Transf (AST/SGOT) 119H, Alanine Aminotransferase (ALT/SGPT) 334H , Alkaline Phosphatase 263H, Total Creatine Kinase 433H, C-Reactive Protein, Quantitative 4.9H, Pro-B-Type Natriuretic Peptide > 12863J, Total Protein 6.5, Albumin 2.5L, Globulin 4.0, Albumin/Globulin Ratio 0.6L, Digoxin Level 2.4H 01/15/21 11:01: Arterial Blood pH 7.293L, Arterial Blood Partial Pressure CO2 48.6H, Arterial Blood Partial Pressure O2 117.0H, Arterial Blood HCO3 23.0, Arterial Blood Oxygen Saturation 97.2, Arterial Blood Base Excess -3.5L, Mo Test Positive Height (Feet): 5 Height (Inches): 2.00 Weight (Pounds): 109 General Appearance: no apparent distress EENT: PERRL/EOMI Neck: supple Cardiovascular: regular rhythm Respiratory/Chest: crackles/rales Abdomen: non tender, soft Extremities: non-tender Assessment/Plan Status: not improved Assessment/Plan: nstemi on medical tx, tachycardia better with iv digoxin dw cardio covid 19 negative ac copd exacerabation chf/cm htn cardiac arrhtemia aortic valve stenosis cont iv abx on heparin drip transfer to [facility] when ever bed avaialble for further cardiac up and possible arotic valve surgery dw pulmonary cardiology on the case left message to the son pt is better today Vinod Bowers MD Jan 15, 2021 18:34
--- NOTE | 2021-01-15 19:32 | NUR ---
NURSE HAND-OFF REPORT: Important Events on Shift: stable Patient Status: Diet: Pending Orders: Pending Results/Labs: Pending MD notification: Latest Vital Signs: Temperature 96.2 , Pulse 85 , B/P 138 /75 , Respiratory Rate 22 , O2 SAT 95 , Bi-pap, O2 Flow Rate 3.0 . Vital Sign Comment: EKG Rhythm: Sinus Rhythm Rhythm change?: N MD Notified?: Y -Dr. Bowers, Dr. Cr GUZMAN Response: Latest Joiner Fall Score: 45 Fall Risk: High Risk Safety Measures: Call light Within Reach, Bed Alarm Zone 2, Side Rails Side Rails x3, Bed position Low and Locked. Fall Precautions: Yellow Socks Yellow Gown Door Sign Patient Fall Education Report given to MISSY Mcgrath.
--- NOTE | 2021-01-15 19:35 | NUR ---
NURSE NOTES: Report received form MISSY Mcdowell. Observed pt lying in the bed, awake, calm, confused, A/O x2. On NC 3L, saturating at 98% at this time.No respiratory distress noted. SR w/ BBB on monitor.vss. Afebrile. IV on R H 22G, on Lasix Drip at 5ml /hr. SCD on LBE. Reposition done. Bed in the lowest position.No s/s of pain at this time. Side rails up x3. Call light within reach. Will continue to monitor.
[2021-01-15 20:00] VITALS: BP 148/84
[2021-01-15] MEDS: Atorvastatin 80mg tab ORAL SCH (21:21)
[2021-01-16] VITALS: BP 124/62
--- NOTE | 2021-01-16 | NUR ---
NURSE NOTES: Pt asleep in bed with no acute distress noted. vss. Afebrile.Turned and repositioned.
--- NOTE | 2021-01-16 03:19 | NUR ---
NURSE NOTES: Patient asleep but easily awakened to touch. Respiration even and unlabored. SR on qa lead. in no apparent distress noted.Sponge bath given. oral care done.
[2021-01-16 04:00] VITALS: BP 148/78
--- NOTE | 2021-01-16 07:38 | NUR ---
NURSE HAND-OFF REPORT: Important Events on Shift:N Patient Status:STABLE Diet: PUREE W/ NECTAR THICK LIQUID Pending Orders: N Pending Results/Labs:N Pending MD notification:N Latest Vital Signs: Temperature 97.3 , Pulse 77 , B/P 148 /78 , Respiratory Rate 22 , O2 SAT 100 , Bi-pap, O2 Flow Rate 3.0 . Vital Sign Comment: STABLE EKG Rhythm: SRw/BBB Rhythm change?: N MD Notified?: Y -Dr. Bowers, Dr. Cr GUZMAN Response: Latest Joiner Fall Score: 45 Fall Risk: High Risk Safety Measures: Call light Within Reach, Bed Alarm Zone 2, Side Rails Side Rails x3, Bed position Low and Locked. Fall Precautions: Yellow Socks Yellow Gown Door Sign Patient Fall Education Report given to DEBBIE LOUIS.
--- NOTE | 2021-01-16 07:40 | NUR ---
NURSE NOTES: Report received from Ramila Palma RN.Pt sitting upright on bed awake alert noted no resp distress on 3 L NC no signs of pain or discomfort,S-R on the monitor,Wu cath draining pale yellow urine,skin cold and dry with IV to RH intact and Lasix drip at 5 ml/hr,SR up x2 HOB elevated bed lock in lowest position will continue with plans of care.
--- NOTE | 2021-01-16 08:46 | NUR ---
CASE MANAGEMENT:REVIEW 01/16/21 SI: NSTEMI. NSVT. AC/CHR CHF. COPD. SEVERE AORTIC VALVE STENOSIS ~ NEEDS TAVR 97.3 75 22 148/78 100% ON 3L/NC IS: LASIX GTT IV CEFEPIME Q24 IV SOLUMEDROL 20MG QD LOVENOX SQ QD ALLOPURINOL PO QD ASA PO QD LOPRESSOR PO Q12 NTG PATCH Q24 IV PEPCID Q12 PLAVIX PO QD LIPITOR PO QHS : STEP DOWN UNIT DCP: FROM HOME PLAN: WAITING FOR TRANSFER TO HIGHER LEVEL OF CARE FOR TAVR ((TRANSCATHETER AORTIC VALVE REPLACEMENT) PER MIKE SHAFER WILL NOT GIVE [facility] AUTHORIZATION FOR TRANSFER SINCE THEY HAVE OTHER HOSPITALS THEY ARE CONTRACTED WITH THAT CAN DO A TAVR. WAITING FOR SONI TO FIND ACCEPTING HOSPITAL FOR TAVR
[2021-01-16] MEDS: Aspirin Baby 81mg NG SCH (08:51)
[2021-01-16] MEDS: Solu-MEDROL 40mg Inj IVP SCH (08:52)
--- NOTE | 2021-01-16 08:52 | NUR ---
TRANSFER UPDATE PATTERN GRADER DIRECTOR, VINI, IS WORKING WITH AND WAITING ON [facility] TO FIND A BED FOR TAVR. [facility] DECLINED TO GIVE AUTHORIZATION TO [facility] PER [facility]'S PATTERN GRADER, SONI, THE HOSPITAL OPTIONS ARE: [facility]
[2021-01-16] MEDS: Enoxaparin 60mg Inj SUBQ SCH (08:53)
--- NOTE | 2021-01-16 08:59 | NUR ---
RD ASSESSMENT & RECOMMENDATIONS SEE CARE ACTIVITY FOR COMPLETE ASSESSMENT DAILY ESTIMATED NEEDS: Needs based on cardiac, pulmonary/ 52kg 25-30 kcals/kg 5921-2384 total kcals 1-1.5 g protein/kg 52-78 g total protein 25-30 mL/kg 1247-7146 total fluid mLs NUTRITION DIAGNOSIS: Altered nutrition related lab values R/T cardiac Hx including NSTEMI, CHF, HTN as evidenced by elev elev troponin (19.913), elev BNP (>3500), elev BPs. CURRENT DIET:REGULAR, puree PO DIET RECOMMENDATIONS: W/ poor PO intake, rec liberalized regular diet/ texture per [employer] TPN Comment: With continued bipap and poor po intake, rec TPN to meet est nutritional needs. ADDITIONAL RECOMMENDATIONS: * Calibrated bedscale wt * EN[employer] eval for appropriate texture- now on bipap * Ensure Enlive TID w/ meals (350kcal/20g prot each) * W/ PO intake consistently >50%, rec LOW NA diet. * Accuchecks for possible hypoglycemia, 0% intake on bipap. Consider D5 * NGT feeds as needed when on NC w/ poor po intake, consult RD
[2021-01-16 09:00] VITALS: BP 133/71
--- NOTE | 2021-01-16 09:00 | NUR ---
NURSE NOTES: Pt refuses to eat breakfast but takes her medications crushed given with apple sauce and a little juice.
--- NOTE | 2021-01-16 09:12 | Hematology/Onc Progress Note ---
Assessment/Plan Assessment/Plan coaulopathy due to heparin gtt that has been started for nstemi--Lovenox anemia due to chronic disease, multifactorial --> hgb 8.2-->9 nstemi on medical tx, waiting for cardiac cath at [facility] or [facility], continue hep gtt -> lovenox covid 19 negative ac copd exacerabation chf htn cardiac arrhtemia agitation cont iv abx iv decadrone on heparin drip--> lovenox add ativan fu labs dw pulmonary cardiology on the case Subjective Constitutional: Denies: no symptoms, chills, fever, malaise, weakness, other HEENT: Denies: no symptoms, eye pain, blurred vision, tearing, double vision, ear pain, ear discharge, nose pain, nose congestion, throat pain, throat swelling, mouth pain, mouth swelling, other Cardiovascular: Denies: no symptoms, chest pain, edema, irregular heart rate, lightheadedness, palpitations, syncope, other Respiratory: Denies: no symptoms, cough, shortness of breath, SOB with excertion, SOB at rest, sputum, wheezing, other Gastrointestinal/Abdominal: Denies: no symptoms, abdomen distended, abdominal pain, black stools, tarry stools, blood in stool, constipated, diarrhea, difficulty swallowing, nausea, poor appetite, poor fluid intake, rectal bleeding, vomiting, other Genitourinary: Denies: no symptoms, burning, discharge, frequency, flank pain, hematuria, incontinence, pain, urgency, other Endocrine: Denies: no symptoms, excessive sweating, flushing, intolerance to cold, intolerance to heat, increased hunger, increased thirst, increased urine, unexplained weight gain, unexplained weight loss, other Allergies: Coded Allergies: No Known Allergies (Unverified , 01/06/21) Subjective 01/11 labs reviewed, remains confused, meds noted, do rn, on hep gtt 01/12 pending placement at [facility], holding hep gtt as ptt 91 01/13 no night sweats, hgb 8.6, no hemolysis, no bleeding 01/14 confused, noncomplaint, attemptning to take off bipap, hgb 8.2 01/15 confused, but labs reviewed, agitated, hgb 8 01/16 confused, labs noted, no bleeding, h/h stable Objective Objective Current Medications Medications (Trade) Dose Ordered Sig/Lexi Route PRN Reason Start Time Stop Time Status Last Admin Dose Admin Acetaminophen (Tylenol) 650 mg Q6H PRN ORAL Mild Pain (Pain Scale 1-3) 01/06/21 16:15 02/05/21 16:14 01/06/21 16:46 Allopurinol (allopurinoL) 300 mg DAILY ORAL 01/15/21 09:00 02/14/21 08:59 01/16/21 08:51 Aspirin (ASA) 81 mg DAILY NG 01/15/21 09:00 03/01/21 08:59 01/16/21 08:51 Atorvastatin Calcium (Lipitor) 80 mg BEDTIME ORAL 01/08/21 21:00 04/08/21 20:59 01/15/21 21:21 Cefepime HCl 2 gm/ Dextrose 55 ml @ 110 mls/hr Q24H IVPB 01/13/21 12:00 01/20/21 11:59 01/15/21 12:10 Clopidogrel Bisulfate (Plavix) 75 mg DAILY ORAL 01/10/21 09:00 02/09/21 08:59 01/16/21 08:51 Enoxaparin Sodium (Lovenox) 50 mg DAILY SUBQ 01/15/21 09:00 04/15/21 08:59 01/16/21 08:53 Famotidine (Pepcid I.v.) 20 mg Q12HR IVP 01/13/21 12:00 02/12/21 11:59 01/16/21 08:51 Furosemide 100 mg/ Dextrose 100 ml @ 5 mls/hr Q20H IV 01/15/21 13:30 02/14/21 13:29 01/16/21 09:09 Methylprednisolone Sodium Succinate (Solu-MEDROL) 20 mg DAILY IVP 01/13/21 09:00 04/13/21 08:59 01/16/21 08:52 Metoprolol Tartrate (Lopressor) 50 mg Q12HR ORAL 01/13/21 21:00 04/08/21 13:44 01/15/21 21:23 Nitroglycerin (Ntg) 1 patch Q24H TDERMAL 01/13/21 12:15 02/12/21 12:14 01/15/21 12:41 Last 24 Hour Vital Signs Date Time Temp Pulse Resp B/P (MAP) Pulse Ox O2 Delivery O2 Flow Rate FiO2 01/16/21 04:00 97.3 77 22 148/78 (101) 100 01/16/21 04:00 Nasal Cannula 3.0 01/16/21 04:00 75 01/16/21 00:00 97.5 71 22 124/62 (82) 100 01/16/21 00:00 Nasal Cannula 3.0 01/16/21 00:00 76 01/15/21 21:23 82 148/84 01/15/21 20:00 Nasal Cannula 3.0 01/15/21 20:00 96.8 65 22 148/84 (105) 98 01/15/21 20:00 83 01/15/21 19:50 99 Nasal Cannula 3.0 32 01/15/21 16:00 96.2 85 22 138/75 (96) 95 01/15/21 16:00 Nasal Cannula 3.0 01/15/21 15:36 81 01/15/21 12:41 159/84 01/15/21 12:00 97.3 72 20 138/79 (98) 100 01/15/21 12:00 Nasal Cannula 3.0 01/15/21 11:31 75 01/15/21 09:11 77 136/60 01/15/21 08:00 96.4 81 18 135/64 (87) 95 01/15/21 08:00 Nasal Cannula 3.0 01/15/21 07:50 98 Nasal Cannula 3.0 32 01/15/21 07:25 78 01/15/21 04:00 Nasal Cannula 3.0 01/15/21 04:00 78 01/15/21 04:00 97.4 77 30 123/69 (87) 100 01/15/21 00:00 Nasal Cannula 3.0 01/15/21 00:00 98.0 77 24 138/62 (87) 100 01/15/21 00:00 85 01/14/21 21:00 79 138/70 01/14/21 20:00 Nasal Cannula 3.0 01/14/21 20:00 81 01/14/21 20:00 97.7 79 30 138/70 (92) 97 01/14/21 19:43 99 Nasal Cannula 2.0 28 01/14/21 16:00 83 01/14/21 16:00 Nasal Cannula 3.0 01/14/21 16:00 97.3 84 21 150/71 (97) 100 01/14/21 12:36 134/69 01/14/21 12:00 78 01/14/21 12:00 97.3 78 21 134/69 (90) 98 01/14/21 12:00 Nasal Cannula 3.0 01/14/21 09:30 86 133/71 Intake and Output 01/15/21 01/16/21 19:00 07:00 Intake Total 160 ml Output Total 350 ml 1250 ml Balance -350 ml -1090 ml Intake Oral 100 ml IV Total 60 ml Output Urine Total 350 ml 1250 ml # Bowel Movements 2 Labs Test 01/13/21 22:00 01/14/21 03:20 01/14/21 07:57 01/15/21 06:45 Urine Color Pale yellow Urine Appearance Slightly cloudy Urine pH 5 (4.5-8.0) Urine Specific [place] 1.015 (1.005-1.035) Urine Protein 2+ (NEGATIVE) Urine Glucose (UA) Negative (NEGATIVE) Urine Ketones Negative (NEGATIVE) Urine Blood 5+ (NEGATIVE) Urine Nitrite Negative (NEGATIVE) Urine Bilirubin Negative (NEGATIVE) Urine Urobilinogen Normal MG/DL (0.0-1.0) Urine Leukocyte Esterase 1+ (NEGATIVE) Urine RBC Tntc /HPF (0 - 2) Urine WBC 0-2 /HPF (0 - 2) Urine Squamous Epithelial Cells Occasional /LPF Urine Amorphous Sediment Moderate /LPF (NONE) Urine Bacteria Many /HPF (NONE) White Blood Count 7.8 K/UL (4.8-10.8) 10.6 K/UL (4.8-10.8) Red Blood Count 2.75 M/UL (4.20-5.40) 3.02 M/UL (4.20-5.40) Hemoglobin 8.2 G/DL (12.0-16.0) 9.0 G/DL (12.0-16.0) Hematocrit 25.3 % (37.0-47.0) 28.0 % (37.0-47.0) Mean Corpuscular Volume 92 FL (80-99) 93 FL (80-99) Mean Corpuscular Hemoglobin 29.7 PG (27.0-31.0) 29.8 PG (27.0-31.0) Mean Corpuscular Hemoglobin Concent 32.3 G/DL (32.0-36.0) 32.1 G/DL (32.0-36.0) Red Cell Distribution Width 12.5 % (11.6-14.8) 12.5 % (11.6-14.8) Platelet Count 176 K/UL (150-450) 240 K/UL (150-450) Mean Platelet Volume 7.4 FL (6.5-10.1) 8.4 FL (6.5-10.1) Neutrophils (%) (Auto) 80.1 % (45.0-75.0) 83.7 % (45.0-75.0) Lymphocytes (%) (Auto) 6.2 % (20.0-45.0) 3.9 % (20.0-45.0) Monocytes (%) (Auto) 12.9 % (1.0-10.0) 11.6 % (1.0-10.0) Eosinophils (%) (Auto) 0.1 % (0.0-3.0) 0.0 % (0.0-3.0) Basophils (%) (Auto) 0.7 % (0.0-2.0) 0.7 % (0.0-2.0) Sodium Level 140 MMOL/L (136-145) 142 MMOL/L (136-145) Potassium Level 4.8 MMOL/L (3.5-5.1) 5.5 MMOL/L (3.5-5.1) Chloride Level 107 MMOL/L (98-107) 108 MMOL/L (98-107) Carbon Dioxide Level 23 MMOL/L (21-32) 27 MMOL/L (21-32) Anion Gap 10 mmol/L (5-15) 7 mmol/L (5-15) Blood Urea Nitrogen 42 mg/dL (7-18) 54 mg/dL (7-18) Creatinine 1.7 MG/DL (0.55-1.30) 1.8 MG/DL (0.55-1.30) Estimat Glomerular Filtration Rate 34.3 mL/min (>60) 32.1 mL/min (>60) Glucose Level 153 MG/DL (74-106) 135 MG/DL (74-106) Hemoglobin A1c 5.6 % (4.3-6.0) Lactic Acid Level 1.10 mmol/L (0.4-2.0) Uric Acid 13.0 MG/DL (2.6-7.2) 14.2 MG/DL (2.6-7.2) Calcium Level 9.2 MG/DL (8.5-10.1) 9.7 MG/DL (8.5-10.1) Phosphorus Level 3.8 MG/DL (2.5-4.9) 4.9 MG/DL (2.5-4.9) Magnesium Level 2.2 MG/DL (1.8-2.4) 2.5 MG/DL (1.8-2.4) Iron Level 23 ug/dL (50-175) Total Iron Binding Capacity 175 ug/dL (250-450) Percent Iron Saturation 13 % (15-50) Unsaturated Iron Binding 152 ug/dL (112-346) Ferritin 1688 NG/ML (8-388) Total Bilirubin 0.4 MG/DL (0.2-1.0) 0.3 MG/DL (0.2-1.0) Gamma Glutamyl Transpeptidase 294 U/L (5-85) Aspartate Amino Transf (AST/SGOT) 161 U/L (15-37) 119 U/L (15-37) Alanine Aminotransferase (ALT/SGPT) 350 U/L (12-78) 334 U/L (12-78) Alkaline Phosphatase 210 U/L (46-116) 263 U/L (46-116) Lactate Dehydrogenase 449 U/L (81-234) Total Creatine Kinase 323 U/L (26-308) 433 U/L (26-308) Troponin I 9.217 ng/mL (0.000-0.056) C-Reactive Protein, Quantitative 8.3 mg/dL (0.00-0.90) 4.9 mg/dL (0.00-0.90) Pro-B-Type Natriuretic Peptide > 83911 pg/mL (0-125) > 64976 pg/mL (0-125) Total Protein 6.0 G/DL (6.4-8.2) 6.5 G/DL (6.4-8.2) Albumin 2.4 G/DL (3.4-5.0) 2.5 G/DL (3.4-5.0) Globulin 3.6 g/dL 4.0 g/dL Albumin/Globulin Ratio 0.7 (1.0-2.7) 0.6 (1.0-2.7) Triglycerides Level 69 MG/DL (30-150) Cholesterol Level 214 MG/DL (< 200) LDL Cholesterol 113 mg/dL (<100) HDL Cholesterol 84 MG/DL (40-60) Cholesterol/HDL Ratio 2.5 (3.3-4.4) Lipase 104 U/L (73-393) Vitamin B12 Level 1285 PG/ML (193-986) Folate 24.1 NG/ML (8.6-58.9) Thyroid Stimulating Hormone (TSH) 0.183 uiU/mL (0.358-3.740) Digoxin Level 2.7 NG/ML (0.9-2.0) 2.4 NG/ML (0.9-2.0) Arterial Blood pH 7.364 (7.350-7.450) Arterial Blood Partial Pressure CO2 44.5 mmHg (35.0-45.0) Arterial Blood Partial Pressure O2 82.9 mmHg (75.0-100.0) Arterial Blood HCO3 24.8 mmol/L (22.0-26.0) Arterial Blood Oxygen Saturation 95.3 % (95-100) Arterial Blood Base Excess -0.7 (-2-2) Mo Test Positive Test 01/15/21 11:01 01/16/21 06:00 01/16/21 08:30 Arterial Blood pH 7.293 (7.350-7.450) Arterial Blood Partial Pressure CO2 48.6 mmHg (35.0-45.0) Arterial Blood Partial Pressure O2 117.0 mmHg (75.0-100.0) Arterial Blood HCO3 23.0 mmol/L (22.0-26.0) Arterial Blood Oxygen Saturation 97.2 % (95-100) Arterial Blood Base Excess -3.5 (-2-2) Mo Test Positive Height (Feet): 5 Height (Inches): 2.00 Weight (Pounds): 109 Objective GeN: Nad HEENT: PERRL/EOMI Neck: supple Cardiovascular: regular rhythm Respiratory/Chest: normal breath sounds Abdomen: non tender, soft Extremities: non-tender Elliot Mayberry MD Jan 16, 2021 09:12
[2021-01-16 09:27] LABS: BASOPHILS % (AUTO) 1.4 % (0.0-2.0); HEMATOCRIT 30.9 % (37.0-47.0); HEMOGLOBIN 9.5 G/DL (12.0-16.0); LYMPHOCYTES % (AUTO) 6.6 % (20.0-45.0); MEAN CORPUSCULAR VOLUME 96 FL (80-99); PLATELET COUNT 265 K/UL (150-450); RED BLOOD COUNT 3.23 M/UL (4.20-5.40); WHITE BLOOD COUNT 11.8 K/UL (4.8-10.8)
[2021-01-16 10:06] LABS: ALANINE AMINOTRANSFERASE 301 U/L (12-78); ALBUMIN 2.5 G/DL (3.4-5.0); ALBUMIN/GLOBULIN RATIO 0.6 (1.0-2.7); ALKALINE PHOSPHATASE 276 U/L (46-116); ANION GAP 13 mmol/L (5-15); ASPARTATE AMINO TRANSFERASE 80 U/L (15-37); BILIRUBIN,TOTAL 0.4 MG/DL (0.2-1.0); BLOOD UREA NITROGEN 66 mg/dL (7-18); CALCIUM 9.4 MG/DL (8.5-10.1); CARBON DIOXIDE 25 MMOL/L (21-32); CHLORIDE 107 MMOL/L (98-107); CREATININE 2.2 MG/DL (0.55-1.30); PHOSPHORUS 6.8 MG/DL (2.5-4.9); POTASSIUM 4.2 MMOL/L (3.5-5.1); SODIUM 145 MMOL/L (136-145)
--- NOTE | 2021-01-16 10:13 | General Progress Note ---
Subjective Allergies: Coded Allergies: No Known Allergies (Unverified , 01/06/21) Subjective doing ok more awake sitting in bed sob better Objective Last 24 Hour Vital Signs Date Time Temp Pulse Resp B/P (MAP) Pulse Ox O2 Delivery O2 Flow Rate FiO2 01/16/21 09:00 97.3 82 22 133/71 (91) 94 01/16/21 08:00 83 01/16/21 07:00 94 Nasal Cannula 3.0 32 01/16/21 04:00 97.3 77 22 148/78 (101) 100 01/16/21 04:00 Nasal Cannula 3.0 01/16/21 04:00 75 01/16/21 00:00 97.5 71 22 124/62 (82) 100 01/16/21 00:00 Nasal Cannula 3.0 01/16/21 00:00 76 01/15/21 21:23 82 148/84 01/15/21 20:00 Nasal Cannula 3.0 01/15/21 20:00 96.8 65 22 148/84 (105) 98 01/15/21 20:00 83 01/15/21 19:50 99 Nasal Cannula 3.0 32 01/15/21 16:00 96.2 85 22 138/75 (96) 95 01/15/21 16:00 Nasal Cannula 3.0 01/15/21 15:36 81 01/15/21 12:41 159/84 01/15/21 12:00 97.3 72 20 138/79 (98) 100 01/15/21 12:00 Nasal Cannula 3.0 01/15/21 11:31 75 Intake and Output 01/15/21 01/16/21 19:00 07:00 Intake Total 160 ml Output Total 350 ml 1250 ml Balance -350 ml -1090 ml Intake Oral 100 ml IV Total 60 ml Output Urine Total 350 ml 1250 ml # Bowel Movements 2 Laboratory Tests 01/15/21 11:01: Arterial Blood pH 7.293L, Arterial Blood Partial Pressure CO2 48.6H, Arterial Blood Partial Pressure O2 117.0H, Arterial Blood HCO3 23.0, Arterial Blood Oxygen Saturation 97.2, Arterial Blood Base Excess -3.5L, Mo Test Positive 01/16/21 06:00: Urine Eosinophils None seen 01/16/21 08:30: White Blood Count 11.8H, Red Blood Count 3.23L, Hemoglobin 9.5L, Hematocrit 30.9L, Mean Corpuscular Volume 96, Mean Corpuscular Hemoglobin 29.3, Mean Corpuscular Hemoglobin Concent 30.6L, Red Cell Distribution Width 13.0, Platelet Count 265, Mean Platelet Volume 6.9, Neutrophils (%) (Auto) 83.0H, Lymphocytes (%) (Auto) 6.6L, Monocytes (%) (Auto) 9.0, Eosinophils (%) (Auto) 0.0, Basophils (%) (Auto) 1.4, Sodium Level 145, Potassium Level 4.2, Chloride Level 107, Carbon Dioxide Level 25, Anion Gap 13, Blood Urea Nitrogen 66H, Creatinine 2.2H, Estimat Glomerular Filtration Rate 25.5, Glucose Level 232H, Uric Acid 13.7H, Calcium Level 9.4, Phosphorus Level 6.8H, Magnesium Level 2.6H, Total Bilirubin 0.4, Aspartate Amino Transf (AST/SGOT) 80H, Alanine Aminotransferase (ALT/SGPT) 301H, Alkaline Phosphatase 276H, Troponin I [Pending], C-Reactive Protein, Quantitative 2.9H, Pro-B-Type Natriuretic Peptide > 34119I, Total Protein 6.4, Albumin 2.5L, Globulin 3.9, Albumin/Globulin Ratio 0.6L, Digoxin Level 1.2 Height (Feet): 5 Height (Inches): 2.00 Weight (Pounds): 109 General Appearance: alert EENT: PERRL/EOMI Neck: supple Cardiovascular: regular rhythm Respiratory/Chest: crackles/rales Abdomen: non tender, soft Extremities: non-tender Assessment/Plan Status: not improved Assessment/Plan: nstemi on medical tx, tachycardia better with iv digoxin dw cardio covid 19 negative ac copd exacerabation chf/cm htn cardiac arrhtemia aortic valve stenosis cont iv abx on heparin drip [facility] when ever bed avaialble for further cardiac up and possible arotic valve surgery dw pulmonary cardiology on the case left message to the son pt is better today Vinod Bowers MD Jan 16, 2021 10:13
--- NOTE | 2021-01-16 10:53 | Pulmonology Progress Note ---
Subjective ROS Limited/Unobtainable: No Interval Events: None major reported per nursing Constitutional: Reports: other - better; Denies: fever HEENT: Repors: no symptoms Respiratory: Reports: shortness of breath Cardiovascular: Reports: no symptoms Gastrointestinal/Abdominal: Reports: no symptoms Genitourinary: Reports: no symptoms Allergies: Coded Allergies: No Known Allergies (Unverified , 01/06/21) Objective Last 24 Hour Vital Signs Date Time Temp Pulse Resp B/P (MAP) Pulse Ox O2 Delivery O2 Flow Rate FiO2 01/16/21 09:00 97.3 82 22 133/71 (91) 94 01/16/21 08:00 83 01/16/21 07:00 94 Nasal Cannula 3.0 32 01/16/21 04:00 97.3 77 22 148/78 (101) 100 01/16/21 04:00 Nasal Cannula 3.0 01/16/21 04:00 75 01/16/21 00:00 97.5 71 22 124/62 (82) 100 01/16/21 00:00 Nasal Cannula 3.0 01/16/21 00:00 76 01/15/21 21:23 82 148/84 01/15/21 20:00 Nasal Cannula 3.0 01/15/21 20:00 96.8 65 22 148/84 (105) 98 01/15/21 20:00 83 01/15/21 19:50 99 Nasal Cannula 3.0 32 01/15/21 16:00 96.2 85 22 138/75 (96) 95 01/15/21 16:00 Nasal Cannula 3.0 01/15/21 15:36 81 01/15/21 12:41 159/84 01/15/21 12:00 97.3 72 20 138/79 (98) 100 01/15/21 12:00 Nasal Cannula 3.0 01/15/21 11:31 75 Intake and Output 01/15/21 01/16/21 19:00 07:00 Intake Total 160 ml Output Total 350 ml 1250 ml Balance -350 ml -1090 ml Intake Oral 100 ml IV Total 60 ml Output Urine Total 350 ml 1250 ml # Bowel Movements 2 General Appearance: no acute distress HEENT: atraumatic Respiratory: accessory muscle use, crackles/rales Cardiovascular: regular rhythm, tachycardia Abdomen: soft, non tender Microbiology Date/Time Source Procedure Growth Status 01/13/21 22:00 Urine,Clean Catch Urine Culture - Final Enterococcus Faecium - Vre Complete Laboratory Tests 01/15/21 11:01: Arterial Blood pH 7.293L, Arterial Blood Partial Pressure CO2 48.6H, Arterial Blood Partial Pressure O2 117.0H, Arterial Blood HCO3 23.0, Arterial Blood Oxygen Saturation 97.2, Arterial Blood Base Excess -3.5L, Mo Test Positive 01/16/21 06:00: Urine Eosinophils None seen 01/16/21 08:30: White Blood Count 11.8H, Red Blood Count 3.23L, Hemoglobin 9.5L, Hematocrit 30.9L, Mean Corpuscular Volume 96, Mean Corpuscular Hemoglobin 29.3, Mean Corpuscular Hemoglobin Concent 30.6L, Red Cell Distribution Width 13.0, Platelet Count 265, Mean Platelet Volume 6.9, Neutrophils (%) (Auto) 83.0H, Lymphocytes (%) (Auto) 6.6L, Monocytes (%) (Auto) 9.0, Eosinophils (%) (Auto) 0.0, Basophils (%) (Auto) 1.4, Sodium Level 145, Potassium Level 4.2, Chloride Level 107, Carbon Dioxide Level 25, Anion Gap 13, Blood Urea Nitrogen 66H, Creatinine 2.2H, Estimat Glomerular Filtration Rate 25.5, Glucose Level 232H, Uric Acid 13.7H, Calcium Level 9.4, Phosphorus Level 6.8H, Magnesium Level 2.6H, Total Bilirubin 0.4, Aspartate Amino Transf (AST/SGOT) 80H, Alanine Aminotransferase (ALT/SGPT) 301H, Alkaline Phosphatase 276H, Troponin I 11.852H, C-Reactive Protein, Quantitative 2.9H, Pro-B-Type Natriuretic Peptide > [id number], Total Protein 6.4, Albumin 2.5L, Globulin 3.9, Albumin/Globulin Ratio 0.6L, Digoxin Level 1.2 Current Medications Medications (Trade) Dose Ordered Sig/Lexi Route PRN Reason Start Time Stop Time Status Last Admin Dose Admin Acetaminophen (Tylenol) 650 mg Q6H PRN ORAL Mild Pain (Pain Scale 1-3) 01/06/21 16:15 02/05/21 16:14 01/06/21 16:46 Allopurinol (allopurinoL) 300 mg DAILY ORAL 01/15/21 09:00 02/14/21 08:59 01/16/21 08:51 Aspirin (ASA) 81 mg DAILY NG 01/15/21 09:00 03/01/21 08:59 01/16/21 08:51 Atorvastatin Calcium (Lipitor) 80 mg BEDTIME ORAL 01/08/21 21:00 04/08/21 20:59 01/15/21 21:21 Cefepime HCl 2 gm/ Dextrose 55 ml @ 110 mls/hr Q24H IVPB 01/13/21 12:00 01/20/21 11:59 01/15/21 12:10 Clopidogrel Bisulfate (Plavix) 75 mg DAILY ORAL 01/10/21 09:00 02/09/21 08:59 01/16/21 08:51 Enoxaparin Sodium (Lovenox) 50 mg DAILY SUBQ 01/15/21 09:00 04/15/21 08:59 01/16/21 08:53 Famotidine (Pepcid I.v.) 20 mg Q12HR IVP 01/13/21 12:00 02/12/21 11:59 01/16/21 08:51 Furosemide 100 mg/ Dextrose 100 ml @ 5 mls/hr Q20H IV 01/15/21 13:30 02/14/21 13:29 01/16/21 09:09 Methylprednisolone Sodium Succinate (Solu-MEDROL) 20 mg DAILY IVP 01/13/21 09:00 04/13/21 08:59 01/16/21 08:52 Metoprolol Tartrate (Lopressor) 50 mg Q12HR ORAL 01/13/21 21:00 04/08/21 13:44 01/15/21 21:23 Nitroglycerin (Ntg) 1 patch Q24H TDERMAL 01/13/21 12:15 02/12/21 12:14 01/15/21 12:41 Assessment/Plan Assessment/Plan 1. Hypoxemic respiratory distress; improving -Now on 3L NC; continue to wean as tolerated - s/p dexamethasone (01/07-01/08); now on Solu-Medrol - Avoid bronchodilators given pulmonary edema 2. COVID-19 PCR negative (01/06) - off isolation 3. Pneumonia -On broad-spectrum antibiotics per primary MD 4. CHF - Elevated BNP - s/p Lasix in the ER - cardio following - repeat CXR (01/15) shows slightly worse -> will start Lasix gtt 5 mg/h 5. Elevated D-dimer with tachycardia - s/p heparin - now on Lovenox -Venous duplex of legs negative for DVT 6. Elevated troponin - Noted plans for transfer to [facility] for TVAR 7. NSTEMI - On heparin gtt + ASA + Plavix - seen by cardio The care for this patient was discussed with my supervising physician. Time spent for this case was approximately 31 minutes. Moo Emmanuel Jan 16, 2021 10:53
--- NOTE | 2021-01-16 11:00 | Infectious Diseases Prog Note ---
Assessment/Plan Assessment/Plan antibiotics : cefepime A 1. pneumonia improving covid 19 negative 2. increased LFT 3. anemia 4. VRE UTI P 1. d/c cefepime 2. start linezolid 3. will follow up cultures Subjective Constitutional: Denies: fever, chills Respiratory: Denies: shortness of breath, dry cough Gastrointestinal/Abdominal: Denies: nausea, vomiting, diarrhea Musculoskeletal: Denies: pain Allergies: Coded Allergies: No Known Allergies (Unverified , 01/06/21) Objective Last 24 Hour Vital Signs Date Time Temp Pulse Resp B/P (MAP) Pulse Ox O2 Delivery O2 Flow Rate FiO2 01/16/21 09:00 97.3 82 22 133/71 (91) 94 01/16/21 08:00 83 01/16/21 07:00 94 Nasal Cannula 3.0 32 01/16/21 04:00 97.3 77 22 148/78 (101) 100 01/16/21 04:00 Nasal Cannula 3.0 01/16/21 04:00 75 01/16/21 00:00 97.5 71 22 124/62 (82) 100 01/16/21 00:00 Nasal Cannula 3.0 01/16/21 00:00 76 01/15/21 21:23 82 148/84 01/15/21 20:00 Nasal Cannula 3.0 01/15/21 20:00 96.8 65 22 148/84 (105) 98 01/15/21 20:00 83 01/15/21 19:50 99 Nasal Cannula 3.0 32 01/15/21 16:00 96.2 85 22 138/75 (96) 95 01/15/21 16:00 Nasal Cannula 3.0 01/15/21 15:36 81 01/15/21 12:41 159/84 01/15/21 12:00 97.3 72 20 138/79 (98) 100 01/15/21 12:00 Nasal Cannula 3.0 01/15/21 11:31 75 Height (Feet): 5 Height (Inches): 2.00 Weight (Pounds): 109 Respiratory/Chest: lungs clear Cardiovascular: normal rate, regular rhythm, no gallop/murmur Abdomen: soft, non tender Extremities: no edema Microbiology Date/Time Source Procedure Growth Status 01/13/21 22:00 Urine,Clean Catch Urine Culture - Final Enterococcus Faecium - Vre Complete Laboratory Tests Test 01/15/21 11:01 01/16/21 06:00 01/16/21 08:30 Arterial Blood pH 7.293 (7.350-7.450) Arterial Blood Partial Pressure CO2 48.6 mmHg (35.0-45.0) H Arterial Blood Partial Pressure O2 117.0 mmHg (75.0-100.0) H Arterial Blood HCO3 23.0 mmol/L (22.0-26.0) Arterial Blood Oxygen Saturation 97.2 % (95-100) Arterial Blood Base Excess -3.5 (-2-2) L Om Test Positive Urine Eosinophils None seen (NONE SEEN) White Blood Count 11.8 K/UL (4.8-10.8) H Red Blood Count 3.23 M/UL (4.20-5.40) L Hemoglobin 9.5 G/DL (12.0-16.0) L Hematocrit 30.9 % (37.0-47.0) L Mean Corpuscular Volume 96 FL (80-99) Mean Corpuscular Hemoglobin 29.3 PG (27.0-31.0) Mean Corpuscular Hemoglobin Concent 30.6 G/DL (32.0-36.0) L Red Cell Distribution Width 13.0 % (11.6-14.8) Platelet Count 265 K/UL (150-450) Mean Platelet Volume 6.9 FL (6.5-10.1) Neutrophils (%) (Auto) 83.0 % (45.0-75.0) H Lymphocytes (%) (Auto) 6.6 % (20.0-45.0) L Monocytes (%) (Auto) 9.0 % (1.0-10.0) Eosinophils (%) (Auto) 0.0 % (0.0-3.0) Basophils (%) (Auto) 1.4 % (0.0-2.0) Sodium Level 145 MMOL/L (136-145) Potassium Level 4.2 MMOL/L (3.5-5.1) Chloride Level 107 MMOL/L (98-107) Carbon Dioxide Level 25 MMOL/L (21-32) Anion Gap 13 mmol/L (5-15) Blood Urea Nitrogen 66 mg/dL (7-18) H Creatinine 2.2 MG/DL (0.55-1.30) H Estimat Glomerular Filtration Rate 25.5 mL/min (>60) Glucose Level 232 MG/DL (74-106) H Uric Acid 13.7 MG/DL (2.6-7.2) H Calcium Level 9.4 MG/DL (8.5-10.1) Phosphorus Level 6.8 MG/DL (2.5-4.9) H Magnesium Level 2.6 MG/DL (1.8-2.4) H Total Bilirubin 0.4 MG/DL (0.2-1.0) Aspartate Amino Transf (AST/SGOT) 80 U/L (15-37) H Alanine Aminotransferase (ALT/SGPT) 301 U/L (12-78) H Alkaline Phosphatase 276 U/L (46-116) H Troponin I 11.852 ng/mL (0.000-0.056) C-Reactive Protein, Quantitative 2.9 mg/dL (0.00-0.90) H Pro-B-Type Natriuretic Peptide > 06282 pg/mL (0-125) H Total Protein 6.4 G/DL (6.4-8.2) Albumin 2.5 G/DL (3.4-5.0) L Globulin 3.9 g/dL Albumin/Globulin Ratio 0.6 (1.0-2.7) L Digoxin Level 1.2 NG/ML (0.9-2.0) Current Medications Medications (Trade) Dose Ordered Sig/Lexi Route PRN Reason Start Time Stop Time Status Last Admin Dose Admin Acetaminophen (Tylenol) 650 mg Q6H PRN ORAL Mild Pain (Pain Scale 1-3) 01/06/21 16:15 02/05/21 16:14 01/06/21 16:46 Allopurinol (allopurinoL) 300 mg DAILY ORAL 01/15/21 09:00 02/14/21 08:59 01/16/21 08:51 Aspirin (ASA) 81 mg DAILY NG 01/15/21 09:00 03/01/21 08:59 01/16/21 08:51 Atorvastatin Calcium (Lipitor) 80 mg BEDTIME ORAL 01/08/21 21:00 04/08/21 20:59 01/15/21 21:21 Cefepime HCl 2 gm/ Dextrose 55 ml @ 110 mls/hr Q24H IVPB 01/13/21 12:00 01/20/21 11:59 01/15/21 12:10 Clopidogrel Bisulfate (Plavix) 75 mg DAILY ORAL 01/10/21 09:00 02/09/21 08:59 01/16/21 08:51 Enoxaparin Sodium (Lovenox) 50 mg DAILY SUBQ 01/15/21 09:00 04/15/21 08:59 01/16/21 08:53 Famotidine (Pepcid I.v.) 20 mg Q12HR IVP 01/13/21 12:00 02/12/21 11:59 01/16/21 08:51 Furosemide 100 mg/ Dextrose 100 ml @ 5 mls/hr Q20H IV 01/15/21 13:30 02/14/21 13:29 01/16/21 09:09 Methylprednisolone Sodium Succinate (Solu-MEDROL) 20 mg DAILY IVP 01/13/21 09:00 04/13/21 08:59 01/16/21 08:52 Metoprolol Tartrate (Lopressor) 50 mg Q12HR ORAL 01/13/21 21:00 04/08/21 13:44 01/15/21 21:23 Nitroglycerin (Ntg) 1 patch Q24H TDERMAL 01/13/21 12:15 02/12/21 12:14 01/15/21 12:41 Emmie Dickson MD Jan 16, 2021 11:00
[2021-01-16] MEDS: Metoprolol Tartrate 50mg tab ORAL SCH ×2 (11:07→20:48)
--- NOTE | 2021-01-16 11:48 | Nephrology Progress Note ---
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 Electrolytes acceptable. Digoxin level down to 1.2. Continue per consultants. Troponin I higher at 11. Allopurinol dose both. January 15: Creatinine rising. Patient on IV Lasix for CHF. IV fluids stopped. Digoxin level lowering at 2.4. Continue per consultants. Kayexalate for high potassium given. January 14: Creatinine andrés to 1.7. Hyperkalemia resolved. Troponin I lowering. Digoxin level 2.7. Will monitor renal parameters and digoxin level. Start allopurinol for high uric acid Previously: You have hyperkalemia and elevated creatinine we will hold further digoxin doses and monitor digoxin level Anemia work-up Monitor renal parameters and electrolytes Optimize cardiac and pulmonary status Urine studies Per orders Subjective ROS Limited/Unobtainable: No Constitutional: Reports: malaise, weakness Objective Objective Last 24 Hour Vital Signs Date Time Temp Pulse Resp B/P (MAP) Pulse Ox O2 Delivery O2 Flow Rate FiO2 01/16/21 11:07 82 133/71 01/16/21 09:00 97.3 82 22 133/71 (91) 94 01/16/21 08:00 83 01/16/21 07:00 94 Nasal Cannula 3.0 32 01/16/21 04:00 97.3 77 22 148/78 (101) 100 01/16/21 04:00 Nasal Cannula 3.0 01/16/21 04:00 75 01/16/21 00:00 97.5 71 22 124/62 (82) 100 01/16/21 00:00 Nasal Cannula 3.0 01/16/21 00:00 76 01/15/21 21:23 82 148/84 01/15/21 20:00 Nasal Cannula 3.0 01/15/21 20:00 96.8 65 22 148/84 (105) 98 01/15/21 20:00 83 01/15/21 19:50 99 Nasal Cannula 3.0 32 01/15/21 16:00 96.2 85 22 138/75 (96) 95 01/15/21 16:00 Nasal Cannula 3.0 01/15/21 15:36 81 01/15/21 12:41 159/84 01/15/21 12:00 97.3 72 20 138/79 (98) 100 01/15/21 12:00 Nasal Cannula 3.0 Current Medications Medications (Trade) Dose Ordered Sig/Lexi Route PRN Reason Start Time Stop Time Status Last Admin Dose Admin Acetaminophen (Tylenol) 650 mg Q6H PRN ORAL Mild Pain (Pain Scale 1-3) 01/06/21 16:15 02/05/21 16:14 01/06/21 16:46 Allopurinol (allopurinoL) 300 mg DAILY ORAL 01/15/21 09:00 02/14/21 08:59 01/16/21 08:51 Aspirin (ASA) 81 mg DAILY NG 01/15/21 09:00 03/01/21 08:59 01/16/21 08:51 Atorvastatin Calcium (Lipitor) 80 mg BEDTIME ORAL 01/08/21 21:00 04/08/21 20:59 01/15/21 21:21 Clopidogrel Bisulfate (Plavix) 75 mg DAILY ORAL 01/10/21 09:00 02/09/21 08:59 01/16/21 08:51 Enoxaparin Sodium (Lovenox) 50 mg DAILY SUBQ 01/15/21 09:00 04/15/21 08:59 01/16/21 08:53 Famotidine (Pepcid I.v.) 20 mg Q12HR IVP 01/13/21 12:00 02/12/21 11:59 01/16/21 08:51 Furosemide 100 mg/ Dextrose 100 ml @ 5 mls/hr Q20H IV 01/15/21 13:30 02/14/21 13:29 01/16/21 09:09 Linezolid (Zyvox) 600 mg EVERY 12 HOURS ORAL 01/16/21 11:30 01/21/21 11:29 Methylprednisolone Sodium Succinate (Solu-MEDROL) 20 mg DAILY IVP 01/13/21 09:00 04/13/21 08:59 01/16/21 08:52 Metoprolol Tartrate (Lopressor) 50 mg Q12HR ORAL 01/13/21 21:00 04/08/21 13:44 01/16/21 11:07 Nitroglycerin (Ntg) 1 patch Q24H TDERMAL 01/13/21 12:15 02/12/21 12:14 01/15/21 12:41 Current Medications Medications (Trade) Dose Ordered Sig/Lexi Route PRN Reason Start Time Stop Time Status Last Admin Dose Admin Acetaminophen (Tylenol) 650 mg Q6H PRN ORAL Mild Pain (Pain Scale 1-3) 01/06/21 16:15 02/05/21 16:14 01/06/21 16:46 Allopurinol (allopurinoL) 300 mg DAILY ORAL 01/15/21 09:00 02/14/21 08:59 01/16/21 08:51 Aspirin (ASA) 81 mg DAILY NG 01/15/21 09:00 03/01/21 08:59 01/16/21 08:51 Atorvastatin Calcium (Lipitor) 80 mg BEDTIME ORAL 01/08/21 21:00 04/08/21 20:59 01/15/21 21:21 Clopidogrel Bisulfate (Plavix) 75 mg DAILY ORAL 01/10/21 09:00 02/09/21 08:59 01/16/21 08:51 Enoxaparin Sodium (Lovenox) 50 mg DAILY SUBQ 01/15/21 09:00 04/15/21 08:59 01/16/21 08:53 Famotidine (Pepcid I.v.) 20 mg Q12HR IVP 01/13/21 12:00 02/12/21 11:59 01/16/21 08:51 Furosemide 100 mg/ Dextrose 100 ml @ 5 mls/hr Q20H IV 01/15/21 13:30 02/14/21 13:29 01/16/21 09:09 Linezolid (Zyvox) 600 mg EVERY 12 HOURS ORAL 01/16/21 11:30 01/21/21 11:29 Methylprednisolone Sodium Succinate (Solu-MEDROL) 20 mg DAILY IVP 01/13/21 09:00 04/13/21 08:59 01/16/21 08:52 Metoprolol Tartrate (Lopressor) 50 mg Q12HR ORAL 01/13/21 21:00 04/08/21 13:44 01/16/21 11:07 Nitroglycerin (Ntg) 1 patch Q24H TDERMAL 01/13/21 12:15 02/12/21 12:14 01/15/21 12:41 l Intake and Output 01/15/21 01/16/21 19:00 07:00 Intake Total 160 ml Output Total 350 ml 1250 ml Balance -350 ml -1090 ml Intake Oral 100 ml IV Total 60 ml Output Urine Total 350 ml 1250 ml # Bowel Movements 2 Laboratory Tests 01/16/21 06:00: Urine Eosinophils None seen 01/16/21 08:30: White Blood Count 11.8H, Red Blood Count 3.23L, Hemoglobin 9.5L, Hematocrit 30.9L, Mean Corpuscular Volume 96, Mean Corpuscular Hemoglobin 29.3, Mean Corpuscular Hemoglobin Concent 30.6L, Red Cell Distribution Width 13.0, Platelet Count 265, Mean Platelet Volume 6.9, Neutrophils (%) (Auto) 83.0H, Lymphocytes (%) (Auto) 6.6L, Monocytes (%) (Auto) 9.0, Eosinophils (%) (Auto) 0.0, Basophils (%) (Auto) 1.4, Sodium Level 145, Potassium Level 4.2, Chloride Level 107, Carbon Dioxide Level 25, Anion Gap 13, Blood Urea Nitrogen 66H, Creatinine 2.2H, Estimat Glomerular Filtration Rate 25.5, Glucose Level 232H, Uric Acid 13.7H, Calcium Level 9.4, Phosphorus Level 6.8H, Magnesium Level 2.6H, Total Bilirubin 0.4, Aspartate Amino Transf (AST/SGOT) 80H, Alanine Aminotransferase (ALT/SGPT) 301H, Alkaline Phosphatase 276H, Troponin I 11.852H, C-Reactive Protein, Quantitative 2.9H, Pro-B-Type Natriuretic Peptide > 14815E, Total Protein 6.4, Albumin 2.5L, Globulin 3.9, Albumin/Globulin Ratio 0.6L, Digoxin Level 1.2 Height (Feet): 5 Height (Inches): 2.00 Weight (Pounds): 109 General Appearance: no apparent distress, lethargic Cardiovascular: normal rate Respiratory/Chest: decreased breath sounds Abdomen: distended Tobias Wilson MD Jan 16, 2021 11:48
[2021-01-16] MEDS: Nitroglycerin Patch 0.4mg TDERMAL SCH (11:52)
[2021-01-16 12:00] VITALS: BP 122/75
[2021-01-16] MEDS ORDERED: LORazepam 0.5mg tab ORAL PRN (12:15)
--- NOTE | 2021-01-16 12:25 | NUR ---
NURSE NOTES: Pt restless,and anxious,but unable to verbalized what she feels, look like getting confused,call placed t Dr Chaves and informed re pt's condition,ordered Ativan 0.5 mg po,order done and carried out.Pt given Tylenol 650 mg po also for comfort.
--- NOTE | 2021-01-16 13:05 | NUR ---
NURSE NOTES: Pt resting quietly at this time ,no further agitation presented .
--- NOTE | 2021-01-16 15:46 | NUR ---
INSURANCE CLINICALS/REVIEW FAXED TO [facility]#[phone] fax#[phone]
--- NOTE | 2021-01-16 15:59 | NUR ---
CONFIGURATION RELEASE MANAGER NOTES SPOKE WITH SONI FROM [facility] PT IS PENDING POSSIBLE [facility]. SONI WILL ENDORSE THE TRANSFER SHEET TO THE [employer]AL BAGGER CONFIGURATION RELEASE MANAGER, IF A ICU BED BECOMES AVAILABLE PT WILL TRANSFER TO [facility].
[2021-01-16 16:00] VITALS: BP 120/66
--- NOTE | 2021-01-16 16:00 | NUR ---
NURSE NOTES: Pt continue to sleep ,refuses to eat dinner .
[2021-01-16] MEDS ORDERED: Tubing IV Secondary IV ONE (16:16)
--- NOTE | 2021-01-16 17:07 | NUR ---
Speech Pathology Note (Dysphagia note) athlete manager notes reviewed for the situation. In the mean time, CBC: 11.8/9.5/30.9/265 Creatine: 1.5-1.7-1.8-2.2 LFT: Continued to be elevated Troponin 11.8 Vital signs: Temp: 97.2, Pulse 58~129, BP: 122/75~130/66, SPo2 94% 3 liter Pt is lethargic. Pt remains high aspiration risk. Possible TVAR near soon. Condition is critical with worsening perfusion. Leukocytosis without fever. NPO for now Germán Nichols
--- NOTE | 2021-01-16 18:00 | NUR ---
NURSE HAND-OFF: Important Events on Shift:episode of agitation and restless,altered mentation Patient Status: unstable Diet: Regular Pending Orders: Pending Results/Labs: Pending MD notification: Latest Vital Signs: Temperature 97.4 , Pulse 81 , B/P 120 /66 , Respiratory Rate 22 , O2 SAT 95 , Bi-pap, O2 Flow Rate 3.0 . Vital Sign Comment: u stable Latest Joiner Fall Score: 45 Fall Risk: High Risk Safety Measures: Call light Within Reach, Bed Alarm Zone 2, Side Rails Side Rails x3, Bed position Low and Locked. Fall Precautions: Yellow Socks Yellow Gown Door Sign Patient Fall Education Report given to Ady LOUIS.
--- NOTE | 2021-01-16 19:06 | NUR ---
NURSE NOTES: Received report for MISSY Koenig. Pt is A/O x1-2 but very confused and agitated. Pt is on NC 4L with a saturation of 99%. No SOB or acute respiratory distress noted. potline monitor shows SR w/ BBB. Pt has a IV site on RH 22G which is running Lasix Drip at 5ml/hr. Bed in the lowest position and locked with side rails x3. Call light placed within reach. Will continue plan of care.
[2021-01-16 20:00] VITALS: BP 116/75
[2021-01-16] MEDS: Atorvastatin 80mg tab ORAL SCH (20:47)
--- NOTE | 2021-01-16 23:10 | NUR ---
NURSE NOTES: [facility] called and stated they were accepting the pt and bed is assigned to 4322-1. Telephone report given to Cierra and stated that roller picker would be at 0100.
[2021-01-17] VITALS: BP 105/49
--- NOTE | 2021-01-17 01:32 | NUR ---
NURSES NOTES: [facility] arrived and report given to Asya. Pt in stable condition.
== END 2021-01-17 01:30 | disposition short-term general hospital (02) | DRG 280 ==
LOC: EMR 03:32 → 2W 04:00 → OBSVTOIN 04:00 → EDBEDREQ 04:42 → EDBEDREQSVC 04:42 → EDBEDREQ 05:28 → 2W 06:43
DX: I11.0 Hypertensive heart disease with heart failure (principal); I21.4 Non-ST elevation (NSTEMI) myocardial infarction; J18.9 Pneumonia, unspecified organism; J96.01 Acute respiratory failure with hypoxia; J44.1 Chronic obstructive pulmonary disease with (acute) exacerbation; N17.9 Acute kidney failure, unspecified; J44.0 Chronic obstructive pulmonary disease with (acute) lower respiratory infection; I47.1 Supraventricular tachycardia; D68.9 Coagulation defect, unspecified; I50.43 Acute on chronic combined systolic (congestive) and diastolic (congestive) heart failure; E87.5 Hyperkalemia; I35.0 Nonrheumatic aortic (valve) stenosis; F03.90 Unspecified dementia, unspecified severity, without behavioral disturbance, psychotic disturbance, mood disturbance, and anxiety; D64.9 Anemia, unspecified; Z20.822 Contact with and (suspected) exposure to COVID-19
CPT/HCPCS: 36415; 71045; 80048; 80051; 80053; 80061; 80162; 81001; 81003; 82550; 82565; 82607; 82728; 82746; 82803; 82977; 83036; 83540; 83550; 83605; 83615; 83690; 83735; 83880; 84100; 84443; 84484; 84520; 84550; 85007; 85025; 85379; 85610; 85730; 86140; 86710; 87040; 87086; 87181; 89050; 93005; 93306; 93970; 94640; 94660; 96365; 96367; 96375; 96376; 99291; J7620